=== PATIENT | female | born 1955 | race African-American/Black ===

== ENCOUNTER 2020-01-07 11:41 | Outpatient (REF) | payer BC, SELFPAY ==
[2020-01-07 13:35] LABS: Hematocrit 40.6 % (37-47); Hemoglobin 12.5 g/dl (12.0-16.0); Mean Corpuscular HGB Conc 30.8 g/dl (31.0-35.0); Mean Corpuscular Hemoglobin 27.5 pg (27.0-33.0); Mean Corpuscular Volume 89.4 fL (80-98); Mean Platelet Volume 9.3 fL (9.4-12.3); Platelet Count 322 X10*3/uL (160-400); Red Blood Count 4.54 X10*6/uL (4.20-5.50); Red Cell Distribution Width 13.4 % (11.0-16.0); White Blood Count 5.6 X10*3/uL (4.8-10.8)
[2020-01-07 13:51] LABS: Anion Gap 14 (12-20); Blood Urea Nitrogen 18 mg/dL (9-16); Calcium 8.8 mg/dL (8.4-10.2); Carbon Dioxide 21 mmol/L (22-29); Chloride 108 mmol/L (96-108); Estimated Glomerular Filt Rate > 60; Glucose Random 88 mg/dL (60-115); Potassium 4.5 mmol/l (3.3-5.1); Sodium 138 mmol/L (135-145)
== END 2020-01-07 11:42 | disposition home or self-care (01) ==
LOC: HO.LAB 11:41
PROVIDERS: PCP Physician Assistant; Visit Provider Physician Assistant
DX: Z01.818 Encounter for other preprocedural examination (principal); G50.0 Trigeminal neuralgia
CPT/HCPCS: 36415; 80048; 85027

== ENCOUNTER 2020-04-14 15:52 | Outpatient (REF) | payer OTHER, SELFPAY ==
--- NOTE | 2020-04-14 15:56 | XR_ITS ---
EXAMINATION: XR HUMERUS, LEFT CLINICAL INFORMATION: Pain COMPARISON: None TECHNIQUE: AP and lateral views of the left humerus. FINDINGS: The bones and soft tissues are normal. No fracture. Imaged portions of the shoulder and elbow are unremarkable. XR/XR humerus LT IMPRESSION: Normal left humerus.
== END 2020-04-14 15:53 | disposition home or self-care (01) ==
LOC: HO.XRAY 15:52
PROVIDERS: PCP Physician Assistant; Visit Provider Physician Assistant
DX: M79.622 Pain in left upper arm (principal)
CPT/HCPCS: 73060

== ENCOUNTER 2020-06-28 16:00 | Outpatient (RCR) | payer OTHER, SELFPAY ==
--- NOTE | 2020-05-17 20:07 | MHC.PT.EP ---
[facility] [place] Office [place] Office [place] Office [address] [phone] F: [phone] F: [phone] F: [phone] F: [phone] Physical Therapy Plan of Care Date of Evaluation: 05/17/20 Date of Surgery: Diagnosis: L shoulder tendonitis Assessment: Pt is a 64 y/o left hand dominant female referred to PT for L shoulder tendinopathy pain who presents with signs and sx consistent with L shoulder dysfunction resulting in decreased tolerance and ability to perform reaching a high shelf, dressing pullovers and braziers, reaching neck and back for hygiene/ dressing and carrying objects of weight secondary to decreased L UE strength and ROM, decreased posture, increased tissue tension and pain. Pt is deemed an appropriate candidate to receive skilled PT in order to address her physical limitations to improve her functional ability. Frequency and Duration: The patient will be seen 2 x / wk x 5 wks. Short Term Goals: in 1 week: initiate HEP In 3 weeks: Full L shoulder AROM achieved. Usp Goals: in 5 weeks: I with HEP. In 5 weeks: Pt will report no longer limited while dressing pullovers and under garments; initial: 10/10 difficulty. Treatment Plan: Modalities to reduce pain, spasms and effusion. Manual therapy to restore motion and function. Therapeutic exercise to improve strength and flexibility. Neuromuscular re-education for posture and balance. Therapeutic activities to return to functional activities of daily living. Electronically signed by: David Flores PT. Please sign and return to therapist. Thank you for your referral.
--- NOTE | 2020-12-09 10:33 | MHC.PT.DC ---
[facility] [place] Office [place] Office [place] Office [address] 140 [facility] [phone] F: [phone] F: [phone] F: [phone] F: [phone] Physical Therapy Discharge Report Diagnosis: L shoulder tendonitis Date of Surgery: Date of Evaluation: 05/17/20 Date of Discharge: 06/30/20 Treatments to Date: 5 Cancellations to Date: 0 No Shows to Date: 0 Discharge Status: Improved Function Independent with HEP Discharge Summary: Electronically signed by: David Flores PT. Please sign and return to therapist. Thank you for your referral.
== END 2020-12-09 10:33 | disposition home or self-care (01) ==
LOC: HO.PTCHIC 16:00
PROVIDERS: PCP Physician Assistant; Visit Provider Physician Assistant
DX: M77.8 Other enthesopathies, not elsewhere classified (principal); M25.512 Pain in left shoulder
CPT/HCPCS: 97110; 97161

== ENCOUNTER 2020-07-19 15:42 | Outpatient (REF) | payer OTHER, SELFPAY ==
--- NOTE | ~2020-07-19 | MM_ITS ---
EXAMINATION: MM SCREENING DIGITAL BREAST TOMOSYNTHESIS, BILATERAL CLINICAL INFORMATION: Screening. Asymptomatic. The lifetime risk of breast cancer based on the Tyrer-Cuzick Model is 6%. COMPARISON: Mammography: 04/15/2019, 04/09/2018, 02/09/2017 TECHNIQUE: Digital breast tomosynthesis is performed in both the craniocaudal and mediolateral oblique views along with computer-aided detection (CAD). Synthesized 2D images are generated from the tomosynthesis. FINDINGS: The breasts are heterogeneously dense, which may obscure small masses (ACR BI-RADS breast composition Category c). Parenchymal pattern borders on average fibroglandular. The glandular distribution is similar to prior studies. There is no developing density or interval mass or architectural abnormality. Low right axillary nodes are stable. There are scattered bilateral calcifications in the central breast again seen. The skin contours are smooth. No significant changes. MM/MM tomosynthesis screening BI IMPRESSION: No significant changes from prior exams. ASSESSMENT: BI-RADS 2: Benign RECOMMENDATION: Routine annual mammography screening. This patient's information was entered into a reminder system with a target due date for their next mammogram.
== END 2020-07-19 15:43 | disposition home or self-care (01) ==
LOC: HO.MAMMO 15:42
PROVIDERS: PCP Physician Assistant; Visit Provider Physician Assistant
DX: Z12.31 Encounter for screening mammogram for malignant neoplasm of breast (principal)
CPT/HCPCS: 77063; 77067

== ENCOUNTER 2020-12-15 07:13 | Outpatient (REF) | payer MEDICARE, MEDICAID, SELFPAY ==
[2020-12-15 08:37] LABS: MANUAL DIFF FLAG NO
[2020-12-15 08:45] LABS: Basophils Percent Auto 0.5 % (0-2); Eosinophils Absolute Auto 0.6 X10*3/uL (0.0-0.4); Eosinophils Percent Auto 8.6 % (0-4); Hematocrit 38.3 % (37-47); Hemoglobin 11.6 g/dl (12.0-16.0); Imm Gran Abs Auto 0.03 X10*3/uL (0.00-0.03); Imm Gran Pct Auto 0.5 % (0.0-0.4); Lymphocytes Absolute Auto 2.1 X10*3/uL (1.2-4.9); Lymphocytes Percent Auto 32.3 % (20-40); Mean Corpuscular HGB Conc 30.3 g/dl (31.0-35.0); Mean Corpuscular Hemoglobin 26.7 pg (27.0-33.0); Mean Corpuscular Volume 88.2 fL (80-98); Monocytes Absolute Auto 0.6 X10*3/uL (0.1-1.2); Monocytes Percent Auto 8.6 % (2-11); Neutrophils Absolute Auto 3.2 X10*3/uL (2.0-8.3); Neutrophils Percent Auto 49.5 % (45-73); Platelet Count 304 X10*3/uL (160-400); Red Blood Count 4.34 X10*6/uL (4.20-5.50); Red Cell Distribution Width 13.8 % (11.0-16.0); White Blood Count 6.5 X10*3/uL (4.8-10.8)
[2020-12-15 08:50] LABS: INTERNATIONAL NORM RATIO 0.9 (0.9-1.1); Prothrombin Time 10.3 SEC (9.9-13.0)
[2020-12-15 09:31] LABS: Alanine Aminotransferase 18 U/L (0-31); Albumin Level 4.1 g/dL (3.5-5.0); Alkaline Phosphatase 109 U/L (39-117); Anion Gap 10 (12-20); Aspartate Amino Transferase 26 U/L (5-31); Bilirubin Total 0.5 mg/dL (0.0-1.0); Blood Urea Nitrogen 10 mg/dL (9-16); Calcium 9.3 mg/dL (8.4-10.2); Carbon Dioxide 28 mmol/L (22-29); Chloride 107 mmol/L (96-108); Cholesterol 208 mg/dL; Estimated Glomerular Filt Rate > 60; Glucose Fasting 106 mg/dL (60-99); HDL Cholesterol 52 mg/dL; LDL Cholesterol Calculated 131 mg/dl; Potassium 4.2 mmol/L (3.3-5.1); Sodium 141 mmol/L (135-145); Total Protein 7.3 g/dL (6.5-8.0); Triglycerides 125 mg/dL
== END 2020-12-15 07:14 | disposition home or self-care (01) ==
LOC: HO.LAB 07:13
PROVIDERS: PCP Physician Assistant; Visit Provider Physician Assistant
DX: Z01.818 Encounter for other preprocedural examination (principal); Z13.220 Encounter for screening for lipoid disorders; Z13.29 Encounter for screening for other suspected endocrine disorder; G50.0 Trigeminal neuralgia
CPT/HCPCS: 36415; 80053; 80061; 84443; 85025; 85610

== ENCOUNTER 2021-01-03 11:26 | Outpatient (REF) | payer MEDICARE, MEDICAID, SELFPAY ==
--- NOTE | ~2021-01-03 | US_ITS ---
EXAMINATION: US EXTREMITY NON-VASCULAR CLINICAL INFORMATION: Lump of subcutaneous skin. ?lipoma versus cyst. COMPARISON: None TECHNIQUE: Limited ultrasound imaging of a palpable lump along the right posterior lateral flank was performed. FINDINGS: Imaging through the area of the palpable lump reveals no visible mass or cyst. There is what appears to be lumpy bumpy subcutaneous fatty tissue but no discrete lipoma. Similar findings are seen on the opposite side, left flank. US/US extremity nonvascular cifuentes IMPRESSION: No ultrasound visualized aeration of mass or cyst or other abnormality seen along the palpable area of right flank.
== END 2021-01-03 11:27 | disposition home or self-care (01) ==
LOC: HO.HMGCX 11:26
PROVIDERS: PCP Physician Assistant; Visit Provider Physician Assistant
DX: R22.2 Localized swelling, mass and lump, trunk (principal)
CPT/HCPCS: 76882

== ENCOUNTER 2021-08-15 10:27 | Outpatient (REF) | payer MEDICARE, MEDICAID, SELFPAY ==
--- NOTE | ~2021-08-15 | MM_ITS ---
EXAMINATION: BONE DENSITOMETRY CLINICAL INDICATION: Asymptomatic menopausal state. COMPARISON: None (current study represents initial baseline exam). TECHNIQUE: Using a [employer] DXA System (software version: 13.1) manufactured by [employer], dual-energy x-ray absorptiometry was performed of the lumbar spine and left hip. The images are of good technical quality. Summary results are attached. FINDINGS: AP SPINE L1-L4: BMD 0.956 g/cm2, Z-score -0.6, T-score -1.9, osteopenia. LEFT FEMUR, NECK: BMD 0.795 g/cm2, Z-score -0.4, T-score -1.7, osteopenia. LEFT FEMUR, TOTAL: BMD 0.870 g/cm2, Z-score -0.1, T-score -1.1, osteopenia. IDENTIFIED RISK FACTORS: Anticonvulsant, menopause. HISTORY OF FRACTURE: None listed. MEDICATIONS: Calcium supplements or multivitamin, vitamin D. MM/XR DEXA axial skeleton IMPRESSION: 1. DIAGNOSIS: Osteopenia based on the lowest T-score value of -1.9 in the lumbar spine applying World Health Organization criteria. 2. 10-YEAR FRACTURE RISK PREDICTION, FRAX: Major osteoporotic fracture (clinical spine, forearm, hip or shoulder) 5.6%. Hip fracture 0.7%. 3. Treatment Recommendations: NOF guidelines recommend consideration for treatment in postmenopausal women and men age 50 and older presenting with the following: -A hip or vertebral (clinical or morphometric) fracture. -T-score less than or equal to -2.5 at the femoral neck or spine after appropriate evaluation to exclude secondary causes. -Low bone mass at the hip or spine and a 10-year fracture probability by FRAX of greater than or equal to 3% for hip fracture or greater than or equal to 20% for major osteoporotic fracture based on the [place] adapted WHO algorithm. 4. Other Recommendations: All treatment decisions require clinical judgment and consideration of individual patient factors, including patient preferences, comorbidities, previous drug use, risk factors not captured in the FRAX model (e.g. frailty, falls, vitamin D deficiency, increased bone turnover, interval significant decline in bone density) and possible under or overestimation of fracture risk by FRAX. Additional medical evaluation for secondary cause of low bone mineral density may be appropriate. FUTURE SCAN RECOMMENDATION: People with diagnosed cases of osteoporosis or at high risk for fracture should have regular bone mineral density tests. For patients eligible for Medicare, routine testing is allowed once every 2 years. The testing frequency can be increased to one year for patients who have rapidly progressing disease, those who are receiving or discontinuing medical therapy to restore bone mass, or have additional risk factors.
--- NOTE | ~2021-08-15 | MM_ITS ---
EXAMINATION: MM SCREENING DIGITAL BREAST TOMOSYNTHESIS, BILATERAL CLINICAL INFORMATION: Screening. Asymptomatic. The lifetime risk of breast cancer based on the Tyrer-Cuzick Model is 5%. COMPARISON: Mammography: 07/19/2020, 04/15/2019, 04/09/2018 TECHNIQUE: Digital breast tomosynthesis is performed in both the craniocaudal and mediolateral oblique views along with computer-aided detection (CAD). Synthesized 2D images are generated from the tomosynthesis. FINDINGS: The breasts are heterogeneously dense, which may obscure small masses (ACR BI-RADS breast composition Category c). There are no significant masses, abnormal calcifications, or other abnormalities. Breast tissue composition borders on average fibroglandular. There is no developing density or interval mass or architectural abnormality. Again, scattered numerous bilateral punctate and scattered coarse and rim calcifications are again present. No interval suspicious calcifications. The axilla and skin contours are unremarkable. MM/MM tomosynthesis screening BI IMPRESSION: No mammographic evidence of malignancy. ASSESSMENT: BI-RADS 2: Benign RECOMMENDATION: Routine annual mammography screening. This patient's information was entered into a reminder system with a target due date for their next mammogram.
== END 2021-08-15 10:28 | disposition home or self-care (01) ==
LOC: HO.MAMMO 10:27
PROVIDERS: Visit Provider Physician Assistant
DX: Z12.31 Encounter for screening mammogram for malignant neoplasm of breast (principal); Z13.820 Encounter for screening for osteoporosis; Z78.0 Asymptomatic menopausal state; M85.80 Other specified disorders of bone density and structure, unspecified site
CPT/HCPCS: 77063; 77067; 77080

== ENCOUNTER 2021-08-24 07:25 | Outpatient (REF) | payer MEDICARE, SELFPAY ==
[2021-08-24 08:40] LABS: Hematocrit 37.7 % (37.0-47.0); Hemoglobin 11.4 g/dl (12.0-16.0); Mean Corpuscular HGB Conc 30.2 g/dl (31.0-35.0); Mean Corpuscular Hemoglobin 26.6 pg (27.0-33.0); Mean Corpuscular Volume 88.1 fL (80.0-98.0); Platelet Count 363 X10*3/uL (160-400); Red Blood Count 4.28 X10*6/uL (4.20-5.50); Red Cell Distribution Width 13.2 % (11.0-16.0); White Blood Count 6.6 X10*3/uL (4.8-10.8)
[2021-08-24 09:08] LABS: Alanine Aminotransferase 15 U/L (0-31); Albumin Level 3.9 g/dL (3.5-5.0); Alkaline Phosphatase 99 U/L (39-117); Anion Gap 13 (12-20); Aspartate Amino Transferase 19 U/L (5-31); Bilirubin Total 0.3 mg/dL (0.0-1.0); Blood Urea Nitrogen 19 mg/dL (9-16); Calcium 9.1 mg/dL (8.4-10.2); Carbon Dioxide 26 mmol/L (22-29); Chloride 106 mmol/L (96-108); Cholesterol 194 mg/dL; Estimated Glomerular Filt Rate > 60; Glucose Fasting 103 mg/dL (60-99); HDL Cholesterol 43 mg/dL; LDL Cholesterol Calculated 138 mg/dl; Potassium 4.7 mmol/L (3.3-5.1); Sodium 140 mmol/L (135-145); Total Protein 7.2 g/dL (6.5-8.0); Triglycerides 67 mg/dL
[2021-08-24 09:33] LABS: TSH reflex Free T4 3.72 uIU/mL (0.32-4.0)
== END 2021-08-24 07:26 | disposition home or self-care (01) ==
LOC: HO.LAB 07:25
PROVIDERS: PCP Physician Assistant; Visit Provider Physician Assistant
DX: F32.9 Major depressive disorder, single episode, unspecified (principal); Z13.220 Encounter for screening for lipoid disorders; Z13.29 Encounter for screening for other suspected endocrine disorder
CPT/HCPCS: 36415; 80053; 80061; 84443; 85027

== ENCOUNTER → 2021-11-21 12:52 | Outpatient (BNVA) | payer MEDICARE, SELFPAY | PROVIDERS: PCP Physician Assistant; Visit Provider Psychiatry & Neurology Neurology | DX: G50.0 Trigeminal neuralgia (principal); G47.10 Hypersomnia, unspecified; R06.83 Snoring; Z79.899 Other long term (current) drug therapy | CPT/HCPCS: 99202 ==

== ENCOUNTER → 2021-12-19 09:55 | Outpatient (REF) | payer MEDICARE, SELFPAY | LOC: HO.SL 09:55 | PROVIDERS: PCP Physician Assistant; Visit Provider Psychiatry & Neurology Neurology | DX: G47.10 Hypersomnia, unspecified (principal); R06.83 Snoring | CPT/HCPCS: 95806 ==

== ENCOUNTER → 2022-01-09 12:50 | Outpatient (BNVA) | payer MEDICARE, SELFPAY | PROVIDERS: PCP Physician Assistant; Visit Provider Nurse Practitioner Family | DX: G50.0 Trigeminal neuralgia (principal) | CPT/HCPCS: 99212 ==

== ENCOUNTER 2022-01-30 10:25 | Outpatient (REF) | payer MEDICARE, SELFPAY ==
--- NOTE | ~2022-01-30 | MR_ITS ---
EXAMINATION: MR BRAIN WITHOUT AND WITH CONTRAST CLINICAL INFORMATION: 66-year-old with self-reported left jaw pain. Trigeminal neuralgia. COMPARISON: 04/24/2019 MRI. TECHNIQUE: Multiplanar, multisequence MRI of the brain/extracranial head-neck was obtained before and after the intravenous administration of 7.5 mL Gadavist. FINDINGS: DWI sequence demonstrates no restricted diffusion to suggest acute or subacute cerebral ischemia. Redemonstrated are [id number] degrees of patchy zones of FLAIR/T2 signal hyperintensity in the subcortical and deeper white matter of both cerebral hemispheres, a few of which appear more conspicuous on the current study suggesting minimal progression associated with confluent periventricular T2 hyperintensity stable in appearance consistent with chronic ischemic microangiopathy involving the centrum semiovale and noel radiata white matter bilaterally, frontal and parietal white matter bilaterally. Tiny zone of T2 hyperintensity in the right ayse noted on current study also likely of chronic ischemic origin. No extra-axial fluid collections and no pathologic intracranial enhancement or mass lesion. The cisternal and cavernous portions of the trigeminal nerves are visualized bilaterally and are unchanged in appearance from the previous study. No abnormal enhancement or mass lesion seen along the course bilaterally with a normal appearance to Meckel's caves. The foramina ovale appear normal bilaterally with a normal appearance to the trigeminal fat pads, cavernous sinuses, orbital apices and inferior orbital fissures. The visualized mandible is intact. The inferior alveolar canals appear symmetric with a normal appearance to the shelf stocker spaces. There is mucosal thickening in the maxillary sinuses bilaterally progressed from previous study, right more than left, and retained secretions in the right maxillary sinus with some mucosal thickening in the ethmoid complex bilaterally, similar to previous exam. There is mucosal thickening in the sphenoid sinus, similar to previous study. Bilateral lens extractions are noted. Otherwise, the globes and remainder of both orbits appear grossly within normal limits. The infraorbital grooves appear unremarkable bilaterally. The premaxillary soft tissues are within normal limits. MR/MR head/brain wo/w con IMPRESSION: 1. Chronic ischemic microangiopathy in the white matter of both cerebral hemispheres minimally progressed from the previous exam with new minimal chronic ischemic microangiopathy in the right ayse. No intracranial mass lesions or pathologic intracranial enhancement. 2. No specific findings to correlate to clinically reported trigeminal neuralgia. No evidence for vascular impingement, mass lesions or abnormal enhancement corresponding to the course of the visualized trigeminal nerves. 3. Pansinus mucosal inflammatory changes again noted.
== END 2022-01-30 10:26 | disposition home or self-care (01) ==
LOC: HO.MRI 10:25
PROVIDERS: Visit Provider Nurse Practitioner Family
DX: G50.0 Trigeminal neuralgia (principal)
CPT/HCPCS: 70553; A9585

== ENCOUNTER → 2022-02-27 15:19 | Outpatient (BNVA) | payer MEDICARE, SELFPAY | PROVIDERS: PCP Physician Assistant; Visit Provider Nurse Practitioner Family | DX: G50.0 Trigeminal neuralgia (principal) | CPT/HCPCS: 99212 ==

== ENCOUNTER 2022-03-16 15:08 | Outpatient (REF) | payer MEDICARE, MEDICAID, SELFPAY ==
--- NOTE | ~2022-03-16 | MR_ITS ---
EXAMINATION: MR ANGIOGRAPHY BRAIN WITHOUT CONTRAST CLINICAL INFORMATION: Trigeminal neuralgia. COMPARISON: Brain MRI from 01/30/2022. TECHNIQUE: 3-D [id number] MR angiography of the platinum of [place] acquired. FINDINGS: The nondominant left vertebral artery terminates in the PICA branch. The right vertebral artery is normal in caliber. The basilar artery is normal in appearance. The posterior cerebral arteries are widely patent. The internal carotid arteries are normal in caliber. The IRVIN vascular complexes are normal. The middle cerebral arteries are widely patent. No vascular malformation or aneurysm identified. There is moderate right maxillary sinus mucosal thickening with a dependent fluid level. Worsened kfgymkxy-fr-rftyxk left sphenoid sinus mucosal disease evident with a fluid level compared to the prior study. Fluid level and moderate mucosal thickening also newly seen in the right sphenoid sinus. MR/MR angio head wo con IMPRESSION: Normal MRA of the head. Worsened sphenoid sinus mucosal disease with fluid levels. Moderate right maxillary sinus mucosal thickening with a small dependent fluid level as well.
== END 2022-03-16 15:09 | disposition home or self-care (01) ==
LOC: HO.MRI 15:08
PROVIDERS: Visit Provider Nurse Practitioner Family
DX: G50.0 Trigeminal neuralgia (principal)
CPT/HCPCS: 70544

== ENCOUNTER 2022-11-01 09:20 | Outpatient (AMB) | payer MEDICARE, SELFPAY ==
--- NOTE | 2022-11-01 09:27 | MHC.OFFVIS ---
Intake Vital Signs 11/01/22 09:34 Weight 158 lb 2 oz BP 120/80 Blood Pressure Location Lt brachial Position Sitting Pulse 71 Pulse Source Pulse Oximeter Pulse Oximetry (%) 98 Oxygen Delivery Method Room Air Intake Visit Reasons: 3 month f/u - Confirmed through CW Intake Note: Follow up Premium Service Representative Required: No Allergies carbamazepine Allergy (Severe, Verified 11/01/22 09:30) Itchyness, rash all over body oxcarbazepine Allergy (Severe, Verified 11/01/22 09:30) Hives Iodinated Contrast Media [IODINATED CONTRAST MEDIA - IV DYE] Allergy (Intermediate, Verified 11/01/22 09:30) RASH, LIPS SWELLING peach [PEACH] Allergy (Mild, Verified 11/01/22 09:30) RASH.ITCHY pear [PEAR] Allergy (Mild, Verified 11/01/22 09:30) RASH, ITCHY strawberry [STRAWBERRY] Allergy (Mild, Verified 11/01/22 09:30) RASH, ITCHY Egg Derived [EGG DERIVED] Allergy (Unknown, Verified 11/01/22 09:30) UNKNOWN HPI HPI Comments History of Present Illness Details 66 y/o female patient presents for follow up of trigeminal neuralgia. Pt reports that the trigeminal neuralgia is better managed with Lyrica 75 mg BID. She stopped taking baclofen. She tired lamictal but stopped due to dizziness and weakness. Pt also tried carbamazepine and she had allergies, cymbalta- but eye pressure increased ( h/o glaucoma). She still has left side facial, jaw pain when she eats and brushes her teeth, but less frequently. Pt reports that she tries to eat healthy and start drink a tea to manage her sinus problem. She noticed that sinus congestion aggravate her left facial pain, too. MRA of head result was normal with worsened sphenoid sinus mucosal disease with fluid levels. Moderate right maxillary sinus mucosal thickening with a small dependent fluid level as well. [facility] Surgical History History of tonsillectomy Family History Father Cancer Multiple sclerosis Mother Cancer Leukemia Sister Multiple sclerosis Social History (Updated 11/01/22 @ 09:34 by Bri Estrada [facility]) Housing: House Alcohol intake: never Patient Tobacco Use Status: Never used Tobacco e-Cigarette/Vaping Use: Never Used Second Hand Smoke Exposure: No service: No Current occupational status: retired Cognitive needs: No Hearing needs: No Vision needs: Yes (glasses) Review of Systems Const All systems reviewed & are unremarkable except as noted in HPI and below ENT Reports Normal hearing present Neuro Reports Normal hearing present Physical Exam Vital Signs: Last Vital Signs Pulse 71 11/01/22 09:34 BP 120/80 11/01/22 09:34 Pulse Ox 98 11/01/22 09:34 Oxygen Delivery Method Room Air 11/01/22 09:34 Const General: cooperative Nutritional Appearance: average body habitus Orientation/consciousness: patient oriented x3 Neck Neck: Yes full ROM and Yes supple Resp Effort & Inspection: normal respiratory effort and able to speak in complete sentences Neuro General: patient oriented x3 and gait normal Cranial nerves: Yes Bilaterally intact EOM present, Yes Normal facial strength present, Yes Midline tongue present, Yes Normal hearing present, Yes Ability to bilaterally rotate head present and Yes Ability to bilaterally elevate shoulders present Cognition (Neuro): normal cognition Gait exam (Neuro): Normal gait present Assessment & Plan Assessment & Plan (1) Trigeminal neuralgia: Code(s): G50.0 - Trigeminal neuralgia Plan Advised patient to continue to take Lyrica 75mg BID. Advised patient to try NetiPot to clear her sinus. Patient with 3 year history of left sided trigeminal neuralgia. She has trialed gabapentin, pregabalin, Oxcarbazepine , carbamazepine, lamictal and Laser treatment through chiropractic. Medications: Refilled pregabalin (Lyrica) 75 mg PO BID 90 days 180 caps 0RF Coding Level of Care Code New Pt Level 3 (31012) Diagnoses Trigeminal neuralgia G50.0
[2022-11-01 09:34] VITALS: BP 120/80; PULSE 71; O2SAT 98
== END 2022-11-01 09:58 | disposition home or self-care (01) ==
PROVIDERS: Visit Provider Nurse Practitioner Family
DX: G50.0 Trigeminal neuralgia (principal)
CPT/HCPCS: 99213

== ENCOUNTER → 2022-11-01 09:20 | Outpatient (BNVA) | payer MEDICARE, SELFPAY | PROVIDERS: Visit Provider Nurse Practitioner Family ==

== ENCOUNTER 2022-11-05 11:06 | Outpatient (AMB) | payer MEDICARE, SELFPAY ==
--- NOTE | 2022-11-05 11:09 | MHC.PC.OV ---
Vital Signs 11/05/22 11:11 Height 5 ft 6 in Weight 158 lb BMI 25.5 BP 138/70 Blood Pressure Location Rt brachial Position Sitting Pulse 83 Pulse Source Pulse Oximeter Pulse Oximetry (%) 99 Intake Visit Reasons: f/u impaired glucose metabolism Intake Note: pt is here for f/u for IGM Sex Crimes Detective Required: No Accompanied by: Self / Same As Patient Allergies carbamazepine Allergy (Severe, Verified 11/05/22 11:39) Itchyness, rash all over body oxcarbazepine Allergy (Severe, Verified 11/05/22 11:39) Hives Iodinated Contrast Media [IODINATED CONTRAST MEDIA - IV DYE] Allergy (Intermediate, Verified 11/05/22 11:39) RASH, LIPS SWELLING peach [PEACH] Allergy (Mild, Verified 11/05/22 11:39) RASH.ITCHY pear [PEAR] Allergy (Mild, Verified 11/05/22 11:39) RASH, ITCHY strawberry [STRAWBERRY] Allergy (Mild, Verified 11/05/22 11:39) RASH, ITCHY Egg Derived [EGG DERIVED] Allergy (Unknown, Verified 11/05/22 11:39) UNKNOWN Medication List - Last Reconciled 11/05/22 by Ray Mak PA-C albuterol sulfate 90 mcg/actuation (ProAir HFA) 2 puffs inhalation Q4-6H PRN 30 days calcium carbonate-vitamin D3 500 mg-10 mcg (400 unit) (Oyster Shell Calcium-Vitamin D3) 1 tab PO BID 90 days dorzolamide-timolol (PF) 2-0.5 % 1 drp ophthalmic (eye) BID esomeprazole magnesium (Nexium) 40 mg PO DAILY fluticasone propionate 50 mcg/actuation 1 spray intranasal DAILY 30 days latanoprost 0.005% 1 drp ophthalmic (eye) DAILY pregabalin (Lyrica) 75 mg PO BID 90 days pyridoxine (vitamin B6) 50 mg PO DAILY 30 days Tobacco use date assessed: 07/25/22 Fall risk assessment: No Falls in past year Last assessed Fall Risk: 11/05/22 Dental Screening Dental Screen Date: 11/05/22 Did you have a dental visit in the last 12 months?: Yes Did you have a dental problem in the last 6 months where you did not have access to dental care?: No Was dental information given to patient?: Patient has dentist HPI f/u impaired glucose metabolism HPI Details atient is a 66-year-old female here today for follow-up visit.? Patient has a past history significant for major depressive disorder, trigeminal neuralgia. Trigeminal neuralgia : Interval history-->? Has discontinued use of gabapentin.?Has trialed Oxycarbamazapine. .? She does have GI side effects from time to time from gabapentin use. Has seen [facility] neurologist for 2nd opinion on her trigeminal neuralgia. Has followed up with local neurologist and has gotten had MRA and MRI with chronic ischemic changes.? Now continues on Lyrica 75 mg with decent relief of her trigeminal neuralgia pain. .. Osteopenia:? Most recently had a bone density screening showing osteopenia with.? She has started calcium supplementation though needs vitamin-D as well.?? . Pre diabetes:? Most recent FBS - 103 ,? tension neurology pain.? She did get labs with a independent doctor reports that A1c is 6.4. PLAN:? Did discuss starting medication though patient declines, will work extensively on lifestyle modifications to reduce her carbohydrates in her diet. Laboratory Tests 08/24/21 07:51 Fasting Glucose 103 H [facility] Surgical History History of tonsillectomy Family History Father Cancer Multiple sclerosis Mother Cancer Leukemia Sister Multiple sclerosis Social History Housing: House Alcohol intake: never Patient Tobacco Use Status: Never used Tobacco e-Cigarette/Vaping Use: Never Used Second Hand Smoke Exposure: No service: No Current occupational status: retired Cognitive needs: No Hearing needs: No Vision needs: Yes (glasses) Questionnaire Thrive Questionnaire Date Thrive assessed: 07/25/22 ONI-7 AMB Questionnaire ONI-7 Date ONI - 7 assessed: 07/25/22 Source: Developed by Drs. Tomasz Ortega, Nerissa Navarro, Artemio Rosas and colleagues, with an educational magdiel from [employer]. Review of Systems Const Denies headache(s) Eyes Denies loss of vision ENT Denies vertigo, Denies dizziness, Denies headache(s) and Denies sore throat Card Denies chest pain, Denies leg edema and Denies lightheadedness Resp Denies cough, Denies hemoptysis and Denies wheezing GI Denies abdominal pain, Denies melena, Denies constipation, Denies diarrhea and Denies vomiting Denies urinary frequency, Denies dysuria and Denies urinary urgency Musc Denies arthralgias, Denies joint swelling, Denies numbness and Denies tingling Neuro Denies Abnormal speech present, Denies behavioral changes, Denies vertigo, Denies dizziness, Denies headache(s), Denies loss of vision, Denies memory loss, Denies numbness and Denies tingling Psych Denies anxiety, Denies behavioral changes, Denies depression, Denies memory loss and Denies panic attacks Yadiel/Lymph Denies easy bleeding and Denies easy bruising Aller/Immun Denies wheezing Physical exam (Primary Care) Vital Signs: Last Vital Signs Pulse 83 11/05/22 11:11 BP 138/70 11/05/22 11:11 Pulse Ox 99 11/05/22 11:11 BMI result Body Mass Index 25.5 Tobacco/Smoking Status: Tobacco use Status Tobacco use date assessed 07/25/22 11/05/22 11:10 Patient Tobacco Use Status Never used Tobacco 11/05/22 11:10 e-Cigarette/Vaping Use Never Used 11/05/22 11:10 Thrive Assessment: Date of Thrive Assessment Date Thrive assessed 07/25/22 11/05/22 11:10 Const General: healthy appearing, no acute distress, alert and awake Nutritional Appearance: well nourished Orientation/consciousness: oriented to person, oriented to place and oriented to time [facility] Ears: TM's normal bilaterally General nose exam: Normal nasal mucous membranes and turbinates present Eyes Conjunctivae: conjunctivae normal Sclerae: sclerae normal Pupils: Equal, round and reactive pupils present Neck Neck: Yes no lymphadenopathy and Yes no JVD Thyroid: Thyroid normal Carotids: no bruits Resp Effort & Inspection: normal respiratory effort and not tachypneic Auscultation: no crackles, no rales, no rhonchi and no wheezes Cardio Rate: regular rate Rhythm: regular rhythm Heart sounds: no murmurs and normal S1 and S2 GI Palpation (GI): Soft to palpation, nontender, no hepatomegaly and no splenomegaly Auscultation: normal bowel sounds Skin General skin exam: no rashes or lesions noted and dry skin Neuro General: oriented to person, oriented to place and oriented to time Cranial nerves: Yes Equal, round and reactive pupils present Speech: No Abnormal speech present Gait exam (Neuro): Normal gait present Motor exam (neuro): no tremor noted Extrem Right upper extremity: full ROM Left upper extremity: full ROM Right lower extremity: full ROM; no edema Left lower extremity: full ROM; no edema Psych Mental Status: mental status grossly normal Speech and movement: Normal speech and movement present Affect: normal affect Attitude: cooperative Thought process: Normal thought process present Assessment and Plan Assessment & Plan (1) Borderline high cholesterol: Code(s): E78.9 - Disorder of lipoprotein metabolism, unspecified Plan: Patient continues to work on lifestyle modifications to control her borderline high cholesterol. (2) Impaired fasting glucose: Code(s): R73.01 - Impaired fasting glucose Plan: Patient's most recent fasting blood sugar slightly elevated, most recent A1c is 6.4. Has lost 10 lb since last office visit and will recheck fasting sugar and A1c to assure A1c has improved. (3) Trigeminal neuralgia: Code(s): G50.0 - Trigeminal neuralgia Plan: Now stable on current doses Lyrica, still has pain though is manageable. Coding Level of Care Code Est Pt Level 3 (90302) Diagnoses Borderline high cholesterol E78.9 Impaired fasting glucose R73.01 Trigeminal neuralgia G50.0
[2022-11-05 11:11] VITALS: BP 138/70; PULSE 83; O2SAT 99; BMI 25.5
== END 2022-11-05 11:52 | disposition home or self-care (01) ==
PROVIDERS: PCP Physician Assistant; Visit Provider Physician Assistant
DX: E78.9 Disorder of lipoprotein metabolism, unspecified (principal); R73.01 Impaired fasting glucose; G50.0 Trigeminal neuralgia
CPT/HCPCS: 99213

== ENCOUNTER 2022-11-05 11:11 | Outpatient (REF) | payer MEDICARE, SELFPAY | END 2022-11-05 11:12 | disposition home or self-care (01) | LOC: HO.LAB 11:11 | PROVIDERS: Visit Provider Physician Assistant | DX: Z13.89 Encounter for screening for other disorder (principal) ==

== ENCOUNTER 2022-11-05 13:08 | Outpatient (REF) | payer MEDICARE, SELFPAY ==
--- NOTE | ~2022-11-05 | MM_ITS ---
EXAMINATION: MM SCREENING DIGITAL BREAST TOMOSYNTHESIS, BILATERAL CLINICAL INFORMATION: Screening. Asymptomatic. The lifetime risk of breast cancer based on the Tyrer-Cuzick Model is 3.7%. COMPARISON: Mammography: 08/15/2021, 07/19/2020, and dating back to 2013. TECHNIQUE: Digital breast tomosynthesis is performed in both the craniocaudal and mediolateral oblique views along with computer-aided detection (CAD). Synthesized 2D images are generated from the tomosynthesis. FINDINGS: There are scattered areas of fibroglandular density (ACR BI-RADS breast composition Category b). There are stable benign round calcifications scattered throughout both breasts. No suspicious or aggressive changes. There are round equal density circumscribed masses in both breasts, which have been waxing and waning over time, most consistent with simple cysts. There are no suspicious masses, suspicious grouped calcifications, or areas of architectural distortion. The parenchymal pattern is otherwise stable from prior exams. MM/MM tomosynthesis screening BI IMPRESSION: No mammographic evidence of malignancy. Pattern of waxing and waning small simple cysts. Benign calcifications both breasts. ASSESSMENT: BI-RADS BI-RADS 2 - Benign Findings RECOMMENDATION: Routine annual mammography screening. 1 year F/U This examination should not preclude the clinical evaluation of a suspicious palpable abnormality. This patient's information was entered into a reminder system with a target due date for their next mammogram.
== END 2022-11-05 13:09 | disposition home or self-care (01) ==
LOC: HO.MAMMO 13:08
PROVIDERS: PCP Physician Assistant; Visit Provider Physician Assistant
DX: Z12.31 Encounter for screening mammogram for malignant neoplasm of breast (principal)
CPT/HCPCS: 77063; 77067

== ENCOUNTER → 2022-11-05 13:15 | Outpatient (BNV) | payer MEDICARE, SELFPAY | PROVIDERS: PCP Physician Assistant; Visit Provider Radiology Diagnostic Radiology | DX: Z12.31 Encounter for screening mammogram for malignant neoplasm of breast (principal) | CPT/HCPCS: 77063; 77067 ==

== ENCOUNTER 2022-11-07 07:13 | Outpatient (REF) | payer MEDICARE, SELFPAY ==
[2022-11-07 09:41] LABS: Hematocrit 39.1 % (37.0-47.0); Mean Corpuscular HGB Conc 30.7 g/dl (31.0-35.0); Mean Corpuscular Hemoglobin 27.1 pg (27.0-33.0); Mean Corpuscular Volume 88.3 fL (80.0-98.0); Mean Platelet Volume 10.2 fL (9.4-12.3); Platelet Count 302 X10*3/uL (160-400); Red Blood Count 4.43 X10*6/uL (4.20-5.50); Red Cell Distribution Width 13.7 % (11.0-16.0); White Blood Count 6.4 X10*3/uL (4.8-10.8)
[2022-11-07 09:55] LABS: Estimated Average Glucose 126 mg/dL
[2022-11-07 10:37] LABS: Alanine Aminotransferase 14 U/L (0-31); Albumin Level 3.9 g/dL (3.5-5.0); Alkaline Phosphatase 88 U/L (39-117); Anion Gap 12 (12-20); Aspartate Amino Transferase 18 U/L (5-31); Bilirubin Total 0.3 mg/dL (0.0-1.0); Blood Urea Nitrogen 16 mg/dL (9-16); Calcium 9.4 mg/dL (8.4-10.2); Carbon Dioxide 26 mmol/L (22-29); Chloride 109 mmol/L (96-108); Cholesterol 157 mg/dL; Estimated Glomerular Filt Rate > 60; Glucose Fasting 93 mg/dL (60-99); HDL Cholesterol 47 mg/dL; LDL Cholesterol Calculated 90 mg/dl; Sodium 143 mmol/L (135-145); Total Protein 7.2 g/dL (6.5-8.0); Triglycerides 100 mg/dL
== END 2022-11-07 07:14 | disposition home or self-care (01) ==
LOC: HO.LAB 07:13
PROVIDERS: PCP Physician Assistant; Visit Provider Physician Assistant
DX: R73.01 Impaired fasting glucose (principal); J45.20 Mild intermittent asthma, uncomplicated; E78.9 Disorder of lipoprotein metabolism, unspecified
CPT/HCPCS: 36415; 80053; 80061; 83036; 85027

== ENCOUNTER 2023-04-08 12:53 | Outpatient (AMB) | payer MEDICARE, SELFPAY ==
--- NOTE | 2023-04-08 12:58 | MHC.PC.OV ---
Vital Signs 04/08/23 12:59 Height 5 ft 6 in Weight 156 lb 6 oz BMI 25.2 BP 100/60 Blood Pressure Location Lt brachial Position Sitting Pulse 44 L Pulse Source Pulse Oximeter Pulse Oximetry (%) 99 Oxygen Delivery Method Room Air Intake Visit Reasons: neck pain Intake Note: Patient is here today for neck pain radiates down both arms. Tried Tylenol with no relieve. Payroll Assistant Required: No General Maintenance Engineer: Not Required per policy Accompanied by: Self / Same As Patient Allergies carbamazepine Allergy (Severe, Verified 04/08/23 13:25) Itchyness, rash all over body oxcarbazepine Allergy (Severe, Verified 04/08/23 13:25) Hives Iodinated Contrast Media [IODINATED CONTRAST MEDIA - IV DYE] Allergy (Intermediate, Verified 04/08/23 13:25) RASH, LIPS SWELLING peach [PEACH] Allergy (Mild, Verified 04/08/23 13:25) RASH.ITCHY pear [PEAR] Allergy (Mild, Verified 04/08/23 13:25) RASH, ITCHY strawberry [STRAWBERRY] Allergy (Mild, Verified 04/08/23 13:25) RASH, ITCHY Egg Derived [EGG DERIVED] Allergy (Unknown, Verified 04/08/23 13:25) UNKNOWN Medication List - Last Reconciled 04/08/23 by Gamal Lerner MD albuterol sulfate 90 mcg/actuation (ProAir HFA) 2 puffs inhalation Q4-6H PRN 30 days calcium carbonate-vitamin D3 500 mg-10 mcg (400 unit) (Oyster Shell Calcium-Vitamin D3) 1 tab PO BID 90 days cyclobenzaprine 10 mg PO BEDTIME dorzolamide-timolol (PF) 2-0.5 % 1 drp ophthalmic (eye) BID esomeprazole magnesium (Nexium) 40 mg PO DAILY fluticasone propionate 50 mcg/actuation 1 spray intranasal DAILY 30 days latanoprost 0.005% 1 drp ophthalmic (eye) DAILY meloxicam 15 mg PO DAILY pregabalin (Lyrica) 75 mg PO BID 90 days pyridoxine (vitamin B6) 50 mg PO DAILY 30 days Tobacco use date assessed: 04/08/23 Fall risk assessment: No Falls in past year Last assessed Fall Risk: 04/08/23 Dental Screening Dental Screen Date: 04/08/23 Did you have a dental visit in the last 12 months?: Yes Did you have a dental problem in the last 6 months where you did not have access to dental care?: No Was dental information given to patient?: Patient has dentist HPI neck pain HPI Details 67-year-old female presents to the office for a sick visit. Patient is reporting neck pain and pressure symptoms for the past month. Does not recall any fall or injury. Pain is present around the neck and radiates into both arms. Pain symptoms are present throughout the day. [facility] Surgical History History of tonsillectomy Family History Father Cancer Multiple sclerosis Mother Cancer Leukemia Sister Multiple sclerosis Social History Housing: House Alcohol intake: never Patient Tobacco Use Status: Never used Tobacco e-Cigarette/Vaping Use: Never Used Second Hand Smoke Exposure: No service: No Current occupational status: retired Cognitive needs: No Hearing needs: No Vision needs: Yes (glasses) Questionnaire PHQ-9 Over the last 2 weeks, how often have you been bothered by any of the following problems? 1. Little interest or pleasure in doing things: not at all 2. Feeling down, depressed, or hopeless: not at all 3. Trouble falling or staying asleep, or sleeping too much: not at all 4. Feeling tired or having little energy: not at all 5. Poor appetite or overeating: not at all 6. Feeling bad about yourself - or that you are a failure or have let yourself or your family down: not at all 7. Trouble concentrating on things, such as reading the newspaper or watching television: not at all 8. Moving or speaking so slowly that other people could have noticed. Or the opposite - being so fidgety or restless that you have been moving around a lot more than usual: not at all 9. Thoughts that you would be better off or of hurting yourself in some way: not at all Total score: 0 Source: Developed by Drs. Tomasz Ortega, Nerissa Navarro, Artemio Rosas and colleagues, with an educational magdiel from [employer]. Thrive Questionnaire Date Thrive assessed: 04/08/23 I am a: Patient What is your living situation today?: I have a steady place to live Within the past 12 months, did the food you bought not last and you didn't have the money to get more?: Never true Within the past 12 months, did you worry whether your food would run out before you got money to buy more?: Never true Do you have trouble paying for medicines?: No Do you have trouble getting transportation to medical appointments?: No Do you have trouble paying your heating and electricity bill?: No Do you have trouble taking care of your child, family member or friend?: No Do you have trouble with day-to-day activities such as bathing, preparing meals, shopping, managing finances, etc.?: No Are you currently unemployed and looking for a job?: No Are you interested in more education?: No Currently or been in a relationship where the following occur: no concerns reported AUDIT C Alcohol Use Questionnaire (AUDIT-C) 1. How often do you have a drink containing alcohol?: Never Total Score: 0 ONI-7 AMB Questionnaire ONI-7 Date ONI - 7 assessed: 04/08/23 Feeling nervous, anxious, or on edge: 1 = Several days Not being able to stop or control worryin = Not at all Worrying too much about different things: 0 = Not at all Trouble relaxin = Several days Being so restless that it is hard to sit still: 1 = Several days Becoming easily annoyed or irritable: 0 = Not at all Feeling afraid as if something awful might happen: 0 = Not at all Total ONI-7 score (0-4 normal; 5-9 mild; 10-14 moderate; 15-21 severe): 3 Source: Developed by Drs. Tomasz Ortega, Nerissa Navarro, Artemio Rosas and colleagues, with an educational magdiel from [employer]. Physical exam (Primary Care) BMI result Body Mass Index 25.2 Tobacco/Smoking Status: Tobacco use Status Tobacco use date assessed 07/25/22 11/05/22 11:10 Patient Tobacco Use Status Never used Tobacco 11/05/22 11:10 e-Cigarette/Vaping Use Never Used 11/05/22 11:10 Thrive Assessment: Date of Thrive Assessment Date Thrive assessed 07/25/22 11/05/22 11:10 Currently or been in a relationship where the following occur: no concerns reported Const General: cooperative and healthy appearing Nutritional Appearance: well nourished Orientation/consciousness: patient oriented x3 Limitations: no limitations HENMT Head: Yes normal to inspection Eyes General: appearance normal, both eyes and all related structures Neck Other: Neck: Bilateral trapezius muscle discomfort. Full range of motion of the head. Neck: Yes normal visual inspection Chest Chest palpation & inspection: normal palpation of entire chest wall Resp Effort & Inspection: normal respiratory effort Neuro General: patient oriented x3 Assessment and Plan Assessment & Plan (1) Neck pain: Code(s): M54.2 - Cervicalgia Plan: Anti-inflammatory, muscle relaxant, physical therapy have been ordered. Patient was advised to use a heating pad. If symptoms do not improve to follow-up here. Orders: Orders PT Evaluation and Treatment Today M54.2 - Cervicalgia Medications: New cyclobenzaprine 10 mg PO BEDTIME 14 tabs 0RF meloxicam 15 mg PO DAILY 14 tabs 0RF Refilled pyridoxine (vitamin B6) 50 mg PO DAILY 30 days 30 tabs 3RF G50.0 - Trigeminal neuralgia calcium carbonate-vitamin D3 500 mg-10 mcg (400 unit) (Oyster Shell Calcium-Vitamin D3) 1 tab PO BID 90 days 180 tabs 1RF M85.80 - Other specified disorders of bone density and structure, unspecified site Coding Level of Care Code Est Pt Level 3 (16634) Diagnoses Neck pain M54.2
[2023-04-08 12:59] VITALS: BP 100/60; PULSE 44; O2SAT 99; BMI 25.2
== END 2023-04-08 13:17 | disposition home or self-care (01) ==
PROVIDERS: PCP Physician Assistant; Visit Provider Internal Medicine
DX: M54.2 Cervicalgia (principal)
CPT/HCPCS: 99213

== ENCOUNTER 2023-06-26 09:09 | Outpatient (AMB) | payer MEDICARE, SELFPAY ==
[2023-06-26 09:12] VITALS: BP 114/64; PULSE 78; O2SAT 98; BMI 24.5
--- NOTE | 2023-06-26 09:12 | MHC.PC.OV ---
Vital Signs 06/26/23 09:12 Height 5 ft 6 in Weight 152 lb BMI 24.5 BP 114/64 Blood Pressure Location Lt brachial Position Sitting Pulse 78 Pulse Source Pulse Oximeter Pulse Oximetry (%) 98 Oxygen Delivery Method Room Air Intake Visit Reasons: Weak/Tired Development Disability Specialist Required: No Accompanied by: Self / Same As Patient Allergies carbamazepine Allergy (Severe, Verified 06/26/23 09:22) Itchyness, rash all over body oxcarbazepine Allergy (Severe, Verified 06/26/23 09:22) Hives Iodinated Contrast Media [IODINATED CONTRAST MEDIA - IV DYE] Allergy (Intermediate, Verified 06/26/23 09:22) RASH, LIPS SWELLING peach [PEACH] Allergy (Mild, Verified 06/26/23 09:22) RASH.ITCHY pear [PEAR] Allergy (Mild, Verified 06/26/23 09:22) RASH, ITCHY strawberry [STRAWBERRY] Allergy (Mild, Verified 06/26/23 09:22) RASH, ITCHY Egg Derived [EGG DERIVED] Allergy (Unknown, Verified 06/26/23 09:22) UNKNOWN Medication List - Last Reconciled 06/26/23 by Ray Mak PA-C albuterol sulfate 90 mcg/actuation (ProAir HFA) 2 puffs inhalation Q4-6H PRN 30 days calcium carbonate-vitamin D3 500 mg-10 mcg (400 unit) (Oyster Shell Calcium-Vitamin D3) 1 tab PO BID 90 days dorzolamide-timolol (PF) 2-0.5 % 1 drp ophthalmic (eye) BID esomeprazole magnesium (Nexium) 40 mg PO DAILY fluticasone propionate 50 mcg/actuation 1 spray intranasal DAILY 30 days latanoprost 0.005% 1 drp ophthalmic (eye) DAILY netarsudil 0.02% 1 drp ophthalmic-Left QPM pregabalin (Lyrica) 75 mg PO BID 90 days pyridoxine (vitamin B6) 50 mg PO DAILY Tobacco use date assessed: 04/08/23 HPI Weak/Tired HPI Details Patient is a 67-year-old female here today for problem visit. She reports she has been feeling tiered , weak, sleeping issues over the last 3 -4 months. She reports having somewhat of a lack of appetite and has lost a small amount of weight over the last 6-8 months. She has been intentionally reducing her sugar and portion sizes as well which may have caused her some weight loss. Otherwise denies any chest pain, shortness breast, palpitations, vomiting or diarrhea. [facility] Surgical History History of tonsillectomy Family History Father Cancer Multiple sclerosis Mother Cancer Leukemia Sister Multiple sclerosis Social History Housing: House Alcohol intake: never Patient Tobacco Use Status: Never used Tobacco e-Cigarette/Vaping Use: Never Used Second Hand Smoke Exposure: No service: No Current occupational status: retired Cognitive needs: No Hearing needs: No Vision needs: Yes (glasses) Questionnaire PHQ-9 Over the last 2 weeks, how often have you been bothered by any of the following problems? 1. Little interest or pleasure in doing things: not at all 2. Feeling down, depressed, or hopeless: not at all 3. Trouble falling or staying asleep, or sleeping too much: not at all 4. Feeling tired or having little energy: not at all 5. Poor appetite or overeating: not at all 6. Feeling bad about yourself - or that you are a failure or have let yourself or your family down: not at all 7. Trouble concentrating on things, such as reading the newspaper or watching television: not at all 8. Moving or speaking so slowly that other people could have noticed. Or the opposite - being so fidgety or restless that you have been moving around a lot more than usual: not at all 9. Thoughts that you would be better off or of hurting yourself in some way: not at all Total score: 0 Depression Screening Interpretation: Negative Depression Screening Done: Yes 22846 - PHQ-9 Billing: Yes Source: Developed by Drs. Tomasz Ortega, Nerissa Navarro, Artemio Rosas and colleagues, with an educational magdiel from [employer]. Thrive Questionnaire Date Thrive assessed: 06/26/23 I am a: Patient What is your living situation today?: I have a steady place to live Within the past 12 months, did the food you bought not last and you didn't have the money to get more?: Never true Within the past 12 months, did you worry whether your food would run out before you got money to buy more?: Never true Do you have trouble paying for medicines?: No Do you have trouble getting transportation to medical appointments?: No Do you have trouble paying your heating and electricity bill?: No Do you have trouble taking care of your child, family member or friend?: No Do you have trouble with day-to-day activities such as bathing, preparing meals, shopping, managing finances, etc.?: No Are you currently unemployed and looking for a job?: No Are you interested in more education?: No Please select the resources that you would like help with: None Currently or been in a relationship where the following occur: no concerns reported THRIVE Score: 0 AUDIT C Alcohol Use Questionnaire (AUDIT-C) 1. How often do you have a drink containing alcohol?: Never 3. How often do you have six or more drinks on one occasion?: Never Total Score: 0 ONI-7 AMB Questionnaire ONI-7 Date ONI - 7 assessed: 04/08/23 Source: Developed by Drs. Tomasz Ortega, Nerissa Navarro, Artemio Rosas and colleagues, with an educational magdiel from [employer]. Review of Systems Const Reports fatigue, Denies headache(s) and Reports poor appetite Eyes Denies loss of vision ENT Denies vertigo, Denies dizziness, Denies headache(s) and Denies sore throat Card Denies chest pain, Denies leg edema and Denies lightheadedness Resp Denies cough, Denies hemoptysis and Denies wheezing GI Denies abdominal pain, Denies melena, Denies constipation, Denies diarrhea and Denies vomiting Denies urinary frequency, Denies dysuria and Denies urinary urgency Musc Denies arthralgias, Denies joint swelling, Denies numbness and Denies tingling Neuro Denies Abnormal speech present, Denies behavioral changes, Denies vertigo, Denies dizziness, Denies headache(s), Denies loss of vision, Denies memory loss, Denies numbness and Denies tingling Psych Denies anxiety, Denies behavioral changes, Denies depression, Denies memory loss and Denies panic attacks Endo Reports fatigue Yadiel/Lymph Denies easy bleeding and Denies easy bruising Aller/Immun Denies wheezing Physical exam (Primary Care) Vital Signs: Last Vital Signs Pulse 78 06/26/23 09:12 BP 114/64 06/26/23 09:12 Pulse Ox 98 06/26/23 09:12 Oxygen Delivery Method Room Air 06/26/23 09:12 BMI result Body Mass Index 24.5 Tobacco/Smoking Status: Tobacco use Status Tobacco use date assessed 04/08/23 06/26/23 09:12 Patient Tobacco Use Status Never used Tobacco 06/26/23 09:12 e-Cigarette/Vaping Use Never Used 06/26/23 09:12 PHQ-9: PHQ-9 Score PHQ-9: Total score 0 06/26/23 09:25 Depression Screening Interpretation: Negative Thrive Assessment: Date of Thrive Assessment Date Thrive assessed 06/26/23 06/26/23 09:19 Currently or been in a relationship where the following occur: no concerns reported Const General: healthy appearing, no acute distress, alert and awake Nutritional Appearance: well nourished Orientation/consciousness: oriented to person, oriented to place and oriented to time HENMT Ears: TM's normal bilaterally General nose exam: Normal nasal mucous membranes and turbinates present Eyes Conjunctivae: conjunctivae normal Sclerae: sclerae normal Pupils: Equal, round and reactive pupils present Neck Neck: Yes no lymphadenopathy and Yes no JVD Thyroid: Thyroid normal Carotids: no bruits Resp Effort & Inspection: normal respiratory effort and not tachypneic Auscultation: no crackles, no rales, no rhonchi and no wheezes Cardio Rate: regular rate Rhythm: regular rhythm Heart sounds: no murmurs and normal S1 and S2 GI Palpation (GI): Soft to palpation, nontender, no hepatomegaly and no splenomegaly Auscultation: normal bowel sounds Skin General skin exam: no rashes or lesions noted and dry skin Neuro General: oriented to person, oriented to place and oriented to time Cranial nerves: Yes Equal, round and reactive pupils present Speech: No Abnormal speech present Gait exam (Neuro): Normal gait present Motor exam (neuro): no tremor noted Extrem Right upper extremity: full ROM Left upper extremity: full ROM Right lower extremity: full ROM; no edema Left lower extremity: full ROM; no edema Psych Mental Status: mental status grossly normal Speech and movement: Normal speech and movement present Affect: normal affect Attitude: cooperative Thought process: Normal thought process present Assessment and Plan Assessment & Plan (1) Fatigue: Code(s): R53.83 - Other fatigue Qualifiers: Fatigue type: chronic, unspecified Qualified Code(s): R53.82 - Chronic fatigue, unspecified Plan: Patient reports a 3-4 month history fatigue, weakness and lack appetite. Etiology unclear at this time thus will send for labs to evaluate for anemia, thyroid disease, electrolyte or vitamin deficiency. Otherwise she denies any depression though does have chronic anxiety. Could be related to medication namely her glaucoma eyedrops that could be causing some fatigue in slight changes in her blood pressure. She will talk to her verification engineer about changing her eyedrops regime. Orders: Orders Complete Blood Count no Diff 06/26/23 R53.83 - Other fatigue TSH reflex Free T4 06/26/23 R53.83 - Other fatigue Basic Metabolic Panel 06/26/23 R53.83 - Other fatigue Liver Panel 06/26/23 R53.83 - Other fatigue IRON PROFILE 06/26/23 D50.9 - Iron deficiency anemia, unspecified, R53.83 - Other fatigue Vitamin D 25-OH Total 06/26/23 R53.83 - Other fatigue Vitamin B12 and Folate 06/26/23 E53.8 - Deficiency of other specified B group vitamins, R53.83 - Other fatigue Coding Level of Care Code Est Pt Level 4 (75632) Diagnoses Chronic fatigue R53.82 Fatigue type: chronic, unspecified
== END 2023-06-26 09:48 | disposition home or self-care (01) ==
PROVIDERS: PCP Physician Assistant; Visit Provider Physician Assistant
DX: R53.82 Chronic fatigue, unspecified (principal)
CPT/HCPCS: 99214

== ENCOUNTER 2023-06-26 09:57 | Outpatient (REF) | payer MEDICARE, SELFPAY ==
[2023-06-26 10:28] LABS: Hematocrit 39.9 % (37.0-47.0); Hemoglobin 12.5 g/dl (12.0-16.0); Mean Corpuscular HGB Conc 31.3 g/dl (31.0-35.0); Mean Corpuscular Hemoglobin 27.3 pg (27.0-33.0); Mean Corpuscular Volume 87.1 fL (80.0-98.0); Mean Platelet Volume 9.9 fL (9.4-12.3); Platelet Count 268 X10*3/uL (160-400); Red Blood Count 4.58 X10*6/uL (4.20-5.50); Red Cell Distribution Width 13.8 % (11.0-16.0); White Blood Count 6.3 X10*3/uL (4.8-10.8)
[2023-06-26 11:24] LABS: Alanine Aminotransferase 17 U/L (0-31); Albumin Level 4.1 g/dL (3.5-5.0); Alkaline Phosphatase 100 U/L (39-117); Anion Gap 10 (12-20); Aspartate Amino Transferase 23 U/L (5-31); Bilirubin Direct 0.1 mg/dL (0.0-0.5); Bilirubin Total 0.3 mg/dL (0.0-1.0); Blood Urea Nitrogen 18 mg/dL (9-16); Calcium 9.6 mg/dL (8.4-10.2); Carbon Dioxide 29 mmol/L (22-29); Chloride 106 mmol/L (96-108); Estimated Glomerular Filt Rate > 60; Glucose Random 79 mg/dL (60-115); Iron 97 mcg/dL (30-160); Percent Iron Saturation 32 % (15-50); Potassium 4.4 mmol/L (3.3-5.1); Sodium 141 mmol/L (135-145); Total Iron Binding Capacity 305 mcg/dL (228-428); Total Protein 7.8 g/dL (6.5-8.0); Unsaturated Iron Binding 208 ug/dL
[2023-06-26 11:40] LABS: Folate > 20.0 ng/mL (> or = 4.0); Vitamin B12 1393 pg/mL (200-900)
[2023-06-26 11:41] LABS: Vitamin D 25-OH Total 40.2 ng/mL (>30)
== END 2023-06-26 09:58 | disposition home or self-care (01) ==
LOC: HO.LAB 09:57
PROVIDERS: PCP Physician Assistant; Visit Provider Physician Assistant
DX: R53.83 Other fatigue (principal); E53.8 Deficiency of other specified B group vitamins; D50.9 Iron deficiency anemia, unspecified
CPT/HCPCS: 36415; 80048; 80076; 82306; 82607; 82746; 83540; 84443; 85027

== ENCOUNTER 2023-07-10 10:00 | Outpatient (RCR) | payer MEDICARE, SELFPAY ==
--- NOTE | 2023-07-04 14:12 | MHC.PT.EP ---
[facility] [place] [facility] [place] [facility] [place] [facility] [address] [phone] F: [phone] F: [phone] F: [phone] F: [phone] Physical Therapy Plan of Care Date of Evaluation: 06/14/23 Date of Surgery: Diagnosis: Cervicalgia Assessment: Pt is a 67 y/o female with Hx of L sided trigeminal neuralgia who is referred to PT for eval and treat of cervicalgia who reports about 3 months of steady cervical pain which is resulting in decreased tolerance for reading and watching TV, lifting objects of weight, turning head to end ranges including driving, as well as disturbed sleep. Pt is deemed an appropriate candidate to receive skilled PT services to address their physical impairments in order to improve their functional ability. Frequency and Duration: The patient will be seen 1 x/ wk x 6 wks. Short Term Goals: Initiate home program. Improve baseline pain to < 6/10; initial 8/10. Mines Inspector Goals: I with home program. Improve NDI by at least 9 points. Pt will be able to rotate her head without end range pain. Pt will report at most 1/4 disturbed night sleep; initial: 50% disturbed. Treatment Plan: Modalities to reduce pain, spasms and effusion. Manual therapy to restore motion and function. Therapeutic exercise to improve strength and flexibility. Neuromuscular re-education for posture and balance. Therapeutic activities to return to functional activities of daily living. Electronically signed by: David Flores PT. Please sign and return to therapist. Thank you for your referral.
--- NOTE | 2023-09-16 07:41 | MHC.PT.DC ---
[facility] [place] Office [place] Office [place] [facility] [address] John Stewart [address] [phone] F: [phone] F: [phone] F: [phone] F: [phone] Physical Therapy Discharge Report Diagnosis: Cervicalgia Date of Surgery: Date of Evaluation: 06/14/23 Date of Discharge: 09/16/23 Treatments to Date: 4 Cancellations to Date: No Shows to Date: Discharge Status: Patient Elected to Stop Discharge Summary: Pt reports overall some improvement. No adverse effects to Tx. manual comfortable. continue as ney. Electronically signed by: David Flores PT Please sign and return to therapist. Thank you for your referral.
== END 2023-09-16 07:41 | disposition home or self-care (01) ==
LOC: HO.PT 10:00
PROVIDERS: PCP Physician Assistant; Visit Provider Internal Medicine
DX: M54.2 Cervicalgia (principal)
CPT/HCPCS: 97110; 97140; 97161

== ENCOUNTER 2023-07-11 14:52 | Outpatient (AMB) | payer MEDICARE, SELFPAY ==
--- NOTE | 2023-07-11 15:00 | A.OFFVIS_ITS ---
Intake Vital Signs 07/11/23 15:06 Height 5 ft 6 in Weight 155 lb 4 oz BMI 25.1 BP 115/70 Blood Pressure Location Lt brachial Position Sitting Pulse 70 Pulse Source Pulse Oximeter Pulse Oximetry (%) 97 Oxygen Delivery Method Room Air Intake Visit Reasons: 6m follow up- CONF w/address Intake Note: Patient presents for 6 months F/U. For the past 3 to 4 moths have been getting a lot of headaches and lots of neck pain. Allergies carbamazepine Allergy (Severe, Verified 07/11/23 15:06) Itchyness, rash all over body oxcarbazepine Allergy (Severe, Verified 07/11/23 15:06) Hives Iodinated Contrast Media [IODINATED CONTRAST MEDIA - IV DYE] Allergy (Intermediate, Verified 07/11/23 15:06) RASH, LIPS SWELLING peach [PEACH] Allergy (Mild, Verified 07/11/23 15:06) RASH.ITCHY pear [PEAR] Allergy (Mild, Verified 07/11/23 15:06) RASH, ITCHY strawberry [STRAWBERRY] Allergy (Mild, Verified 07/11/23 15:06) RASH, ITCHY Egg Derived [EGG DERIVED] Allergy (Unknown, Verified 07/11/23 15:06) UNKNOWN HPI HPI Comments History of Present Illness Details 67 y/o female patient presents for follo w up of trigeminal neuralgia. Pt reports that the trigeminal neuralgia is better managed with Lyrica 75 mg BID. She stopped taking baclofen. She tired lamictal but stopped due to dizziness and weakness. Pt also tried carbamazepine and she had allergies, cymbalta- but eye pressure in creased ( h/o glaucoma). She still has left side facial, jaw pain when she eats and brushes her teeth, but less frequently. Pt reports that she tries to eat healthy and start drink a tea to manage her sinus problem. She noticed that sinus congestion aggravate her left facial pain, and headache. She tried allergy shot but it was not really helpful. She takes allergy medication daily. Pt reports sinus pain, thinks that she has sinus infection, and plans to go urgent care today. Pt reports that her neck pain has worsened lately, it is intermittent, and her neck can be tired and tightened. She started physical therapy 4 physical therapy done so far. MRA of head result was normal with worsened sphenoid sinus mucosal disease with fluid levels. Moderate right maxillary sinus mucosal thickening with a small dependent fluid level as well. [facility] Surgical History History of tonsillectomy Family History Father Cancer Multiple sclerosis Mother Cancer Leukemia Sister Multiple sclerosis Social History Housing: House Alcohol intake: never Patient Tobacco Use Status: Never used Tobacco e-Cigarette/Vaping Use: Never Used Second Hand Smoke Exposure: No service: No Current occupational status: retired Cognitive needs: No Hearing needs: No Vision needs: Yes (glasses) Review of Systems Const All systems reviewed & are unremarkable except as noted in HPI and below ENT Reports Normal hearing present Neuro Reports Normal hearing present Physical Exam Vital Signs: Last Vital Signs Pulse 70 07/11/23 15:06 BP 115/70 07/11/23 15:06 Pulse Ox 97 07/11/23 15:06 Oxygen Delivery Method Room Air 07/11/23 15:06 BMI result Body Mass Index 25.1 Const Other: Sinus pain with palpitation. General: cooperative Nutritional Appearance: average body habitus Orientation/consciousness: patient oriented x3 Neck Neck: Yes full ROM and Yes supple Resp Effort & Inspection: normal respiratory effort and able to speak in complete sentences Neuro General: patient oriented x3 and gait normal Cranial nerves: Yes Bilaterally intact EOM present, Yes Normal facial strength present, Yes Midline tongue present, Yes Normal hearing present, Yes Ability to bilaterally rotate head present and Yes Ability to bilaterally elevate shoulders present Cognition (Neuro): normal cognition Gait exam (Neuro): Normal gait present Assessment & Plan Assessment & Plan (1) Trigeminal neuralgia: Code(s): G50.0 - Trigeminal neuralgia (2) Sinusitis: Code(s): J32.9 - Chronic sinusitis, unspecified Plan Advised patient to continue to take Lyrica 75mg BID. Advised patient to try NetiPot to clear her sinus. Patient with 3 year history of left sided trigeminal neuralgia. She has trialed gabapentin, pregabalin, Oxcarbazepine , carbamazepine, lamictal and Laser treatment through chiropractic. Continue to do physical therapy for neck pain and try magnesium 400 mg qHS. Medications: New magnesium oxide 400 mg PO DAILY 30 days 30 tabs 6RF Coding Level of Care Code Est Pt Level 3 (50252) Diagnoses Trigeminal neuralgia G50.0 Sinusitis J32.9
[2023-07-11 15:06] VITALS: BP 115/70; PULSE 70; O2SAT 97; BMI 25.1
== END 2023-07-11 15:29 | disposition home or self-care (01) ==
PROVIDERS: PCP Physician Assistant; Visit Provider Nurse Practitioner Family
DX: G50.0 Trigeminal neuralgia (principal); J32.9 Chronic sinusitis, unspecified
CPT/HCPCS: 99213

== ENCOUNTER → 2023-07-11 14:52 | Outpatient (BNVA) | payer MEDICARE, SELFPAY | PROVIDERS: PCP Physician Assistant; Visit Provider Nurse Practitioner Family | DX: G50.0 Trigeminal neuralgia (principal); J32.9 Chronic sinusitis, unspecified | CPT/HCPCS: 99212 ==

== ENCOUNTER 2023-07-12 10:23 | Outpatient (AMB) | payer MEDICARE, SELFPAY ==
--- NOTE | 2023-07-12 10:21 | AM.OFFWIN_ITS ---
Intake Vital Signs 07/12/23 10:22 Height 5 ft 6 in Weight 156 lb BMI 25.2 BP 110/62 Blood Pressure Location Lt brachial Position Sitting Pulse 79 Pulse Source Pulse Oximeter Temp 97.0 F Temp Source Temporal Artery Scan Pulse Oximetry (%) 95 Oxygen Delivery Method Room Air Intake Visit Reasons: EP sinus infection (lobby) Intake Note: pt is here today for sinus infection started 2weeks ago Patient Tobacco Use Status: Never used Tobacco Allergies carbamazepine Allergy (Severe, Verified 07/12/23 10:28) Itchyness, rash all over body oxcarbazepine Allergy (Severe, Verified 07/12/23 10:28) Hives Iodinated Contrast Media [IODINATED CONTRAST MEDIA - IV DYE] Allergy (Intermediate, Verified 07/12/23 10:28) RASH, LIPS SWELLING peach [PEACH] Allergy (Mild, Verified 07/12/23 10:28) RASH.ITCHY pear [PEAR] Allergy (Mild, Verified 07/12/23 10:28) RASH, ITCHY strawberry [STRAWBERRY] Allergy (Mild, Verified 07/12/23 10:28) RASH, ITCHY Egg Derived [EGG DERIVED] Allergy (Unknown, Verified 07/12/23 10:28) UNKNOWN Do you need a note to return to daycare/school/sports/work: No HPI HPI Comments History of Present Illness Details 67-year-old female complaining of fronta l sinus tenderness and nasal congestion for the last 2 weeks. She states she has a mild cough but feels as though that is from her postnasal drip. Denies any fever chills sweats PFSH Surgical History History of tonsillectomy Family History Father Cancer Multiple sclerosis Mother Cancer Leukemia Sister Multiple sclerosis Social History Housing: House Alcohol intake: never Patient Tobacco Use Status: Never used Tobacco e-Cigarette/Vaping Use: Never Used Second Hand Smoke Exposure: No service: No Current occupational status: retired Cognitive needs: No Hearing needs: No Vision needs: Yes (glasses) Review of Systems Const All systems reviewed & are unremarkable except as noted in HPI and below Physical Exam Vital Signs: Last Vital Signs Temp 97.0 F 07/12/23 10:22 Pulse 79 07/12/23 10:22 BP 110/62 07/12/23 10:22 Pulse Ox 95 07/12/23 10:22 Oxygen Delivery Method Room Air 07/12/23 10:22 BMI result Body Mass Index 25.2 Const General: healthy appearing and no acute distress HEENT Head: Yes normal to inspection, Yes normocephalic and Yes atraumatic Ears: hearing grossly normal bilaterally, TM's normal bilaterally and EAC's normal General nose exam: Normal external nose present Face and sinus: Yes sinus tenderness Mouth: Normal oral and palatal mucosa present Throat: Yes posterior oropharynx normal and Yes postnasal drainage Eyes General: appearance normal, both eyes and all related structures Resp Effort & Inspection: normal respiratory effort Auscultation: clear to auscultation bilaterally Cardio Rate: regular rate Rhythm: regular rhythm Heart sounds: S1 normal heart sound present and S2 normal heart sound present Assessment & Plan Assessment & Plan (1) Sinusitis: Code(s): J32.9 - Chronic sinusitis, unspecified Plan: The patient is put on amoxicillin and follow up with her PCP as needed Plan See plan Medications: New amoxicillin 875 mg PO BID 7 days 14 tabs 0RF Coding Level of Care Code Est Pt Level 3 (81424) Diagnoses Sinusitis J32.9
[2023-07-12 10:22] VITALS: BP 110/62; PULSE 79; TEMP 36.1; O2SAT 95; BMI 25.2
== END 2023-07-12 10:48 | disposition home or self-care (01) ==
PROVIDERS: PCP Physician Assistant; Visit Provider Physician Assistant Medical
DX: J32.9 Chronic sinusitis, unspecified (principal)
CPT/HCPCS: 99213

== ENCOUNTER 2023-07-29 14:23 | Outpatient (AMB) | payer MEDICARE, SELFPAY ==
--- NOTE | 2023-07-29 14:25 | A.OFFPC_ITS ---
Vital Signs 07/29/23 14:34 Height 5 ft 6 in Weight 156 lb 4 oz BMI 25.2 BP 110/66 Blood Pressure Location Lt brachial Position Sitting Pulse 85 Pulse Source Pulse Oximeter Pulse Oximetry (%) 95 Oxygen Delivery Method Room Air Intake Visit Reasons: PE Intake Note: Patient is here today for a physical. Behavioral Technician Required: No Accompanied by: Self / Same As Patient Allergies carbamazepine Allergy (Severe, Verified 07/29/23 14:41) Itchyness, rash all over body oxcarbazepine Allergy (Severe, Verified 07/29/23 14:41) Hives Iodinated Contrast Media [IODINATED CONTRAST MEDIA - IV DYE] Allergy (Intermediate, Verified 07/29/23 14:41) RASH, LIPS SWELLING peach [PEACH] Allergy (Mild, Verified 07/29/23 14:41) RASH.ITCHY pear [PEAR] Allergy (Mild, Verified 07/29/23 14:41) RASH, ITCHY strawberry [STRAWBERRY] Allergy (Mild, Verified 07/29/23 14:41) RASH, ITCHY Egg Derived [EGG DERIVED] Allergy (Unknown, Verified 07/29/23 14:41) UNKNOWN Medication List - Last Reconciled 07/29/23 by Ray Mak PA-C albuterol sulfate 90 mcg/actuation (ProAir HFA) 2 puffs inhalation Q4-6H PRN 30 days calcium carbonate-vitamin D3 500 mg-10 mcg (400 unit) (Oyster Shell Calcium- Vitamin D3) 1 tab PO BID 90 days dorzolamide-timolol (PF) 2-0.5 % 1 drp ophthalmic (eye) BID esomeprazole magnesium (Nexium) 40 mg PO DAILY fluticasone propionate 50 mcg/actuation 1 spray intranasal DAILY 30 days latanoprost 0.005% 1 drp ophthalmic (eye) DAILY magnesium oxide 400 mg PO DAILY 30 days netarsudil 0.02% 1 drp ophthalmic-Left QPM pregabalin (Lyrica) 75 mg PO BID 90 days pyridoxine (vitamin B6) 50 mg PO DAILY Tobacco use date assessed: 04/08/23 Fall risk assessment: No Falls in past year Last assessed Fall Risk: 07/29/23 Dental Screening Dental Screen Date: 04/08/23 HPI PE HPI Details Patient is a 67-year-old female here today for a routine annual physical .? Patient has a past history significant for major depressive disorder, trigeminal neuralgia. Concern--> continues to daily fatigue, all labs recently done within normal range. Etiology unclear of her chronic fatigue.--> Suspecting a side effect of medication. Trigeminal neuralgia : Interval history-->? Has discontinued use of gabapentin.?Has trialed Oxycarbamazapine. .? She does have GI side effects from time to time from gabapentin use. Has seen [facility] neurologist for 2nd opinion on her trigeminal neuralgia. Has followed up with local neurologist and has gotten had MRA and MRI with chronic ischemic changes.? Now continues on Lyrica 75 mg with decent relief of her trigeminal neuralgia pain. .. Osteopenia:? Most recently had a bone density screening showing osteopenia . 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 Colon cancer screening: Done in 2017 - normal- repeat 10 years = Up-to-date with colonoscopy Laboratory Tests 06/26/23 10:07 RBC 4.58 Hgb 12.5 Creatinine 0.82 Vitamin B12 1393 H 25-OH Vitamin D To mario 40.2 TSH 2.30 PFSH Surgical History History of tonsillectomy Family History Father Cancer Multiple sclerosis Mother Cancer Leukemia Sister Multiple sclerosis Social History Housing: House Alcohol intake: never Patient Tobacco Use Status: Never used Tobacco e-Cigarette/Vaping Use: Never Used Second Hand Smoke Exposure: No service: No Current occupational status: retired Cognitive needs: No Hearing needs: No Vision needs: Yes (glasses) Questionnaire Thrive Questionnaire Date Thrive assessed: 06/26/23 ONI-7 AMB Questionnaire ONI-7 Date ONI - 7 assessed: 04/08/23 Source: Developed by Drs. Tomasz Ortega, Nerissa Navarro, Artemio gallegos nd colleagues, with an educational magdiel from [employer]. Review of Systems Const Denies body aches, Denies chills, Denies excessive sweating, Reports fatigue, Denies fever(s) and Denies headache(s) Eyes Denies blurry vision ENT Denies dysphagia, Denies vertigo, Denies dizziness, Denies headache(s), Denies hearing loss and Denies tinnitus Card Denies chest pain, Denies chest pain with activity, Denies syncope, Denies irregular heart rhythm and Denies dyspnea Resp Denies chest congestion, Denies cough, Denies hemoptysis, Denies dyspnea and Denies wheezing GI Denies abdominal pain, Denies melena, Denies hematochezia, Denies coffee ground emesis, Denies dysphagia, Denies diarrhea, Denies nausea and Denies vomiting Denies urinary frequency, Denies dysuria, Denies urinary hesitancy and Denies urinary urgency Musc Denies arthralgias, Denies limited range of motion, Denies muscle cramps and Denies muscle weakness Skin/Breast Denies rash and Denies skin ulcer Neuro Denies Abnormal speech present, Denies confusion, Denies vertigo, Denies dizziness, Denies syncope, Denies headache(s), Denies memory loss and Denies seizure-like activity Psych Denies anxiety, Denies confusion, Denies depression, Denies memory loss, Denies panic attacks and Denies paranoia Endo Denies excessive sweating, Reports fatigue, Denies flushing, Denies polydipsia and Denies polyuria Aller/Immun Denies wheezing Physical exam (Primary Care) Vital Signs: Last Vital Signs Pulse 85 07/29/23 14:34 BP 110/66 07/29/23 14:34 Pulse Ox 95 07/29/23 14:34 Oxygen Delivery Method Room Air 07/29/23 14:34 BMI result Body Mass Index 25.2 Tobacco/Smoking Status: Tobacco use Status Tobacco use date assessed 04/08/23 07/29/23 14:25 Patient Tobacco Use Status Never used Tobacco 07/29/23 14:25 e-Cigarette/Vaping Use Never Used 07/29/23 14:25 Thrive Assessment: Date of Thrive Assessment Date Thrive assessed 06/26/23 07/29/23 14:25 Const General: cooperative, comfortable, no acute distress, alert and awake; No confusion Orientation/consciousness: oriented to person, oriented to place, patient oriented x3 and No confusion HENMT Head: Yes normocephalic Ears: external ears normal and TM's normal bilaterally Face and sinus: No sinus tenderness Mouth: Normal oral and palatal mucosa present and tongue normal Teeth and gingiva: dentition normal and gingiva normal Throat: Yes posterior oropharynx normal, Yes tonsils normal and Yes uvula midline Eyes Conjunctivae: conjunctivae normal Sclerae: sclerae normal Pupils: Equal, round and reactive pupils present EOM: EOMs intact bilaterally Direct Ophthalmoscopy: No no photophobia Neck Neck: Yes no lymphadenopathy, No tender and Yes no JVD Thyroid: Thyroid normal Carotids: no bruits Chest Chest palpation & inspection: no tenderness Resp Effort & Inspection: normal respiratory effort, no audible wheezes, not labored and no stridor Auscultation: no crackles, no rales, no rhonchi and no wheezes Cardio Jugular venous distension: no JVD Rate: regular rate, not bradycardic and not tachycardic Rhythm: regular rhythm Bruits: no carotid bruits Peripheral pulses: Peripheral pulses 2+ throughout GI Inspection: Yes normal to inspection, No abdominal wall ecchymosis and No visible herniation Palpation (GI): Soft to palpation, nontender, no guarding, not rigid and No hepatosplenomegaly present Auscultation: normoactive bowel sounds General: Yes no CVA tenderness Back/Spine/Pelvis Back: no CVA tenderness and No back tenderness Cervical Spine: cervical ROM normal Thoracic/Lumbar Spine: thoracic and lumbar spine normal to inspection, straight leg raise negative bilaterally, No thoraco-lumbar ROM limited and No lumbar spinal tenderness Skin Lesions: no lesions Rashes: no rashes Wounds: no wounds Neuro General: oriented to person, oriented to place, patient oriented x3, CN's II-XI intact bilaterally and No confusion Cranial nerves: Yes Equal, round and reactive pupils present and Yes Normal accommodation reflex present Cognition (Neuro): normal cognition Speech: No Abnormal speech present Gait exam (Neuro): Normal gait present Motor exam (neuro): 5/5 motor strength present throughout Extrem Right upper extremity: full ROM; no cyanosis Left upper extremity: full ROM; no cyanosis Right lower extremity: no edema Left lower extremity: no edema Psych Appearance: grossly normal Mental Status: mental status grossly normal Affect: normal affect Attitude: cooperative Thought process: Normal thought process present Assessment and Plan Assessment & Plan (1) Annual physical exam: Code(s): Z00.00 - Encounter for general adult medical examination without abnormal findings (2) MDD (major depressive disorder): Code(s): F32.9 - Major depressive disorder, single episode, unspecified Qualifiers: Active/Remission status: currently active Major depression episode severity: moderate Major depression recurrence: recurrent Qualified Code(s): F33.1 - Major depressive disorder, recurrent, moderate Plan: Patient reports her depression has been well controlled. Not on any depression medication at this time. (3) Trigeminal neuralgia: Code(s): G50.0 - Trigeminal neuralgia Plan: Continues on Lyrica 75 mg b.i.d.. Also continues to follow Neurology. Her facial pain is fairly well controlled does have times of increased pain. She does report some fatigue though is unclear if this is related to his side effects from Lyrica. She will ask her neurology provider. (4) Fatigue: Code(s): R53.83 - Other fatigue Qualifiers: Fatigue type: chronic, unspecified Qualified Code(s): R53.82 - Chronic fatigue, unspecified Plan: Patient continues with daily fatigue, unclear etiology at this time though may be related to her neuromodulator medications side effect. She will discuss this with her neurologist. Orders: Orders Complete Blood Count no Diff 6 Months Z13.1 - Encounter for screening for diabetes mellitus Lipid Panel 6 Months E78.9 - Disorder of lipoprotein metabolism, unspecified Comprehensive Theresa. Panel Fast 6 Months Z13.1 - Encounter for screening for diabetes mellitus Coding Level of Care Code Est Pt Prev Care >65y(59518) Diagnoses Annual physical exam Z00.00 Moderate episode of recurrent major depressive disorder F33.1 Active/Remission status: currently active Major depression episode severity: moderate Major depression recurrence: recurrent Trigeminal neuralgia G50.0 Chronic fatigue R53.82 Fatigue type: chronic, unspecified
[2023-07-29 14:34] VITALS: BP 110/66; PULSE 85; O2SAT 95; BMI 25.2
== END 2023-07-29 15:04 | disposition home or self-care (01) ==
PROVIDERS: PCP Physician Assistant; Visit Provider Physician Assistant
DX: Z00.00 Encounter for general adult medical examination without abnormal findings (principal); F33.1 Major depressive disorder, recurrent, moderate; G50.0 Trigeminal neuralgia; R53.82 Chronic fatigue, unspecified
CPT/HCPCS: 99397

== ENCOUNTER 2023-11-02 19:15 | Emergency (ER) | payer MEDICARE, SELFPAY ==
[2023-11-02 19:17] VITALS: BP 146/79; PULSE 73; RESP 16; TEMP 36.4; O2SAT 98; BMI 25.2
--- NOTE | 2023-11-02 20:17 | ED_ITS ---
HPI - General Adult General Chief complaint: General Medical Stated complaint: left side sinus pain Time Seen by Provider: 11/02/23 21:39 Source: patient and RN notes reviewed Mode of arrival: ambulatory Limitations: no limitations History of Present Illness ED Provider: Jeimy Michele PA-C HPI narrative: This is a 67-year-old female, with a history of trigeminal neuralgia, who presents emergency department with complaints of left-sided facial pressure x6 weeks. Patient states that she has a history of sinus infections and states that her symptoms are consistent with the sinus infections she has had in the past. Patient states that she has a pressure-like pain that starts in her frontal sinuses, and typically occurs with coughing and with touching her sinuses. She denies any fevers or chills. No dizziness, severe headache, chest pain, shortness of breath, abdominal pain, nausea, vomiting or diarrhea. Denies taking any medications at home to treat her current symptoms. Last sinus infection was about 1 year ago. She states that her sinus infections require her to be put on steroids as well as antibiotics. She is followed by her early childhood associate teacher however was unable to be seen for this as they did not have any available appointments. No other complaints or concerns at this time. MD complaint: Sinus pain Onset (ago): week(s) Location: face Radiation: non-radiation Quality: aching Pain Consistency: constant Relieving factors: none Exacerbating factors: none Associated symptoms: denies other symptoms Treatments prior to arrival: none Related Data Home Medications ?Medication ?Instructions ?Recorded ?Confirmed dorzolamide-timolol (PF) 2 %-0.5 % 1 drp ophthalmic (eye) BID 12/30/19 07/29/23 eye drops in a dropperette latanoprost 0.005 % eye drops 1 drp ophthalmic (eye) DAILY 12/30/19 07/29/23 esomeprazole magnesium 40 mg 40 mg PO DAILY 11/01/22 07/29/23 capsule,delayed release (Nexium) netarsudil 0.02 % eye drops 1 drp ophthalmic-Left QPM 06/26/23 07/29/23 Previous Rx's ?Medication ?Instructions ?Recorded albuterol sulfate 90 mcg/actuation 2 puff inhalation Q4-6H PRN 01/08/21 aerosol inhaler (ProAir HFA) bronchospasm 30 days #6.7 grams calcium carbonate 500 mg-vitamin 1 tab PO BID 90 days #180 tabs 04/08/23 D3 10 mcg (400 unit) tablet (Oyster Shell Calcium-Vitamin D3) fluticasone propionate 50 1 spray intranasal DAILY 30 days 06/23/23 mcg/actuation nasal #16 grams spray,suspension pyridoxine (vitamin B6) 50 mg 50 mg PO DAILY #90 tabs 06/23/23 tablet magnesium oxide 400 mg PO DAILY 30 days #30 tabs 07/11/23 pregabalin 75 mg capsule (Lyrica) 75 mg PO BID 90 days #180 caps 10/10/23 amoxicillin 875 mg-potassium 1 tab PO BID #14 tabs 11/02/23 clavulanate 125 mg tablet prednisone 20 mg tablet 20 mg PO DAILY 5 days #5 tabs 11/02/23 Allergies Allergy/AdvReac Type Severity Reaction Status Date / Time carbamazepine Allergy Severe Itchyness, Verified 07/29/23 14:41 rash all over body oxcarbazepine Allergy Severe Hives Verified 11/02/23 19:19 Iodinated Contrast Media Allergy Intermediate RASH, LIPS Verified 11/02/23 19:19 [IODINATED CONTRAST MEDIA - SWELLING IV DYE] peach [PEACH] Allergy Mild RASH.ITCHY Verified 11/02/23 19:19 pear [PEAR] Allergy Mild RASH, ITCHY Verified 11/02/23 19:19 strawberry [STRAWBERRY] Allergy Mild RASH, ITCHY Verified 11/02/23 19:19 Egg Derived [EGG DERIVED] Allergy Unknown UNKNOWN Verified 11/02/23 19:19 Review of Systems Review of Systems: Yes all other systems are reviewed and are negative Constitutional: Constitutional: Reports as per [facility] Past Medical History Surgical History History of tonsillectomy Family History Family History Father Cancer Multiple sclerosis Mother Cancer Leukemia Sister Multiple sclerosis Social History Social History Housing: House Alcohol intake: never Patient Tobacco Use Status: Never used Tobacco e-Cigarette/Vaping Use: Never Used Second Hand Smoke Exposure: No Advance Directives: No Advance Directives Information Provided: No Do you have a plan to hurt others: No Plan service: No Current occupational status: retired Cognitive needs: No Hearing needs: No Vision needs: Yes (glasses) Physical Exam ED Vital Signs: Vital Signs - 24 hr 11/02/23 19:17 11/02/23 20:29 11/02/23 22:42 Temperature 97.6 F 98.2 F 98.2 F Pulse Rate 73 66 66 Respiratory Rate 16 16 16 Blood Pressure 146/79 H 145/68 H 145/68 H Pulse Oximetry 98 98 98 Oxygen Delivery Method Room Air Room Air Room Air BMI result Body Mass Index 25.2 Const General: cooperative, comfortable and no acute distress Orientation/consciousness: patient oriented x3 Limitations: no limitations HENMT Other: Patient has tenderness palpation along the frontal and maxillary sinuses, no ethmoid tenderness. Head: Yes normal to inspection, Yes normocephalic and Yes atraumatic Ears: hearing grossly normal bilaterally and TM's normal bilaterally General nose exam: Normal external nose present Face and sinus: Yes normal facial exam Mouth: Normal oral and palatal mucosa present, oropharynx normal and moist mucous membranes Throat: Yes posterior oropharynx normal, Yes tonsils normal and Yes uvula midline Eyes General: appearance normal, both eyes and all related structures Eyelids: Yes eyelids normal Conjunctivae: conjunctivae normal Sclerae: sclerae normal Pupils: Equal, round and reactive pupils present EOM: EOMs intact bilaterally Neck Neck: Yes normal visual inspection, Yes full ROM and Yes no lymphadenopathy Lymphatic: no lymphadenopathy noted Chest Chest palpation & inspection: normal inspection of the chest Resp Effort & Inspection: normal respiratory effort and able to speak in complete sentences Auscultation: clear to auscultation bilaterally, no crackles, no rales, no rhonchi and no wheezes Cardio Rate: regular rate Rhythm: regular rhythm Heart sounds: S1 normal heart sound present and S2 normal heart sound present GI Inspection: Yes normal to inspection Skin General skin exam: no rashes or lesions noted Trauma: no lacerations or abrasions Wounds: no wounds Neuro General: patient oriented x3 and moves all extremities Cranial nerves: Yes Equal, round and reactive pupils present Extrem General: Yes normal to inspection Right upper extremity: normal to inspection Left upper extremity: normal to inspection Right lower extremity: normal to inspection Left lower extremity: normal to inspection Course Course Course Narrative: RME performed by Emma Valladares PA-C. Patient is a 67 year old assigned female at presenting to the emergency department with concerns of a sinus infection. Patient states over the last 6 weeks she has had sinus pain that seems to be worsening. Detailed physical exam and review of systems are deferred to the social scientist. Swabs ordered. Patient placed back in the waiting room pending room availability and results. Medications Administered Discontinued Medications Generic Name Dose Route Start Last Admin Trade Name Steven PRN Reason Stop Dose Admin Amoxicillin/Clavulanate Potassium 875 mg 11/02/23 21:59 11/02/23 22:14 Amoxicillin/Potassium Clav 875 Mg Tablet PO 11/02/23 22:00 875 mg ONCE ONE Administration Medical Decision Making Medical Decision Making [facility] Narrative: This is a 67-year-old female who presents emergency department with complaints of left-sided facial pain x6 weeks. On arrival, vital signs within normal limits. She is nontoxic appearing, speaking full sentences. She states that she has a history of sinus infections in her symptoms feel similar to the sinus infections she has had in the past. She has tenderness palpation along her maxillary and frontal sinuses, no ethmoid sinus tenderness. She has no fevers or chills. Given that her symptoms have been present for the last 6 weeks, will treat with antibiotics. Also encouraged to drink plenty of fluids get plenty of rest. Patient requesting steroids as this provides her with significant relief with the sinus infection she has had in the past. She states that often times she needs the combination of antibiotics and steroids to alleviate her symptoms. She will follow-up with her early childhood associate teacher. Viral swabs were obtained which were negative. Patient was given strict return precautions. Patient stable for discharge. Differential Diagnosis Differential Diagnoses: The differential diagnosis associated with the presentation includes Sinusitis, URI, flu, RSV, COVID Lab Data [facility] Lab Attestation statement: I reviewed the patient's lab results. Negative viral swabs Labs: Lab Results 11/02/23 Range/Units 19:46 Influenza Type A (PCR) NEGATIVE (Negative) Influenza Type B (PCR) NEGATIVE (Negative) RSV RNA Qual (PCR) NEGATIVE (Negative) SARS-CoV-2 RNA (RT-PCR) NEGATIVE (Negative) Discharge Plan Discharge Clinical Impression: Sinusitis Patient Disposition: Home, Self-Care Instructions: Sinusitis (ED) Additional Instructions: Your seen in the emergency department due to sinus pain. You tested negative for COVID, RSV, and flu. You have a sinus infection, please take prescribed antibiotic as directed. You also requested steroids to with your symptoms, I am prescribing you prednisone, please take as prescribed. This is a medication very similar to methylprednisolone. Drink plenty of fluids get plenty of rest. If any new or worsening symptoms occur including but not limited to chest pain, shortness of breath, please return for re-evaluation. Follow-up with your primary care physician Prescriptions: New amoxicillin-pot clavulanate 875-125 mg tablet 1 tab PO BID Qty: 14 0RF prednisone 20 mg tablet 20 mg PO DAILY 5 Days Qty: 5 0RF No Action albuterol sulfate [ProAir HFA] 90 mcg/actuation HFA aerosol inhaler 2 puff inhalation Q4-6H PRN (Reason: bronchospasm) 30 Days Qty: 6.7 0RF pyridoxine (vitamin B6) 50 mg tablet 50 mg PO DAILY Qty: 90 1RF fluticasone propionate 50 mcg/actuation spray,suspension 1 spray intranasal DAILY 30 Days Qty: 16 6RF Rx Instructions: administer into each nostril pregabalin [Lyrica] 75 mg capsule 75 mg PO BID 90 Days Qty: 180 0RF dorzolamide-timolol (PF) 2-0.5 % dropperette 1 drp ophthalmic (eye) BID latanoprost 0.005 % drops 1 drp ophthalmic (eye) DAILY netarsudil 0.02 % drops 1 drp ophthalmic-Left QPM calcium carbonate-vitamin D3 [Oyster Shell Calcium-Vit D3] 500 mg-10 mcg (400 unit) tablet 1 tab PO BID 90 Days Qty: 180 1RF esomeprazole magnesium [Nexium] 40 mg capsule,delayed release(DR/EC) 40 mg PO DAILY magnesium oxide 400 mg magnesium tablet 400 mg PO DAILY 30 Days Qty: 30 6RF Interventions: ED Discharge Assessment Last Done: 11/02/23 22:42 Discharge Date/Time: 11/02/23 22:42 Print Language: Hebrew
[2023-11-02 20:29] VITALS: BP 145/68; PULSE 66; RESP 16; TEMP 36.8; O2SAT 98
[2023-11-02 20:33] LABS: Influenza A PCR NEGATIVE (Negative); Influenza B PCR NEGATIVE (Negative); Resp Syncy Virus RNA Qual PCR NEGATIVE (Negative); SARS COV2 PCR INHOUSE NEGATIVE (Negative)
[2023-11-02] MEDS: Amoxicillin/Potassium Clav 875 MG TABLET PO (22:14)
[2023-11-02 22:42] VITALS: BP 145/68; PULSE 66; RESP 16; TEMP 36.8; O2SAT 98
== END 2023-11-02 22:42 | disposition home or self-care (01) ==
PROVIDERS: Emergency Provider Emergency Medicine; PCP Physician Assistant
DX: J32.8 Other chronic sinusitis (principal); Z03.818 Encounter for observation for suspected exposure to other biological agents ruled out; J45.909 Unspecified asthma, uncomplicated
CPT/HCPCS: 0241U; 99283

== ENCOUNTER 2023-11-13 08:58 | Outpatient (AMB) | payer MEDICARE, SELFPAY ==
--- NOTE | 2023-11-13 09:27 | MHC.PC.OV ---
Vital Signs 11/13/23 09:28 Height 5 ft 6 in Weight 156 lb BMI 25.2 BP 130/68 Blood Pressure Location Lt brachial Position Sitting Pulse 84 Pulse Source Pulse Oximeter Pulse Oximetry (%) 99 Oxygen Delivery Method Room Air Intake Visit Reasons: EDF [facility] 11/01 Nasal & stomach pain Intake Note: Patient is here to follow-up after a visit the emergency department at [facility] on 11/02/23 for Sinusitis. 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: No Allergies carbamazepine Allergy (Severe, Verified 11/13/23 09:28) Itchyness, rash all over body oxcarbazepine Allergy (Severe, Verified 11/13/23 09:28) Hives Iodinated Contrast Media [IODINATED CONTRAST MEDIA - IV DYE] Allergy (Intermediate, Verified 11/13/23 09:28) RASH, LIPS SWELLING peach [PEACH] Allergy (Mild, Verified 11/13/23 09:28) RASH.ITCHY pear [PEAR] Allergy (Mild, Verified 11/13/23 09:28) RASH, ITCHY strawberry [STRAWBERRY] Allergy (Mild, Verified 11/13/23 09:28) RASH, ITCHY Egg Derived [EGG DERIVED] Allergy (Unknown, Verified 11/13/23 09:28) UNKNOWN Medication List - Last Reconciled 11/13/23 by Charity Burch PA-C albuterol sulfate 90 mcg/actuation (ProAir HFA) 2 puffs inhalation Q4-6H PRN 30 days brimonidine 0.2% drps ophthalmic (eye) calcium carbonate-vitamin D3 500 mg-10 mcg (400 unit) (Oyster Shell Calcium-Vitamin D3) 1 tab PO BID 90 days dorzolamide-timolol (PF) 2-0.5 % 1 drp ophthalmic (eye) BID esomeprazole magnesium (Nexium) 40 mg PO DAILY fluticasone propionate 50 mcg/actuation 1 spray intranasal DAILY 30 days latanoprost 0.005% 1 drp ophthalmic (eye) DAILY magnesium oxide 400 mg PO DAILY 30 days netarsudil 0.02% 1 drp ophthalmic-Left QPM pregabalin (Lyrica) 75 mg PO BID 90 days pyridoxine (vitamin B6) 50 mg PO DAILY Tobacco use date assessed: 04/08/23 Fall risk assessment: No Falls in past year Last assessed Fall Risk: 11/13/23 Dental Screening Dental Screen Date: 04/08/23 HPI EDF [facility] 11/01 Nasal & stomach pain HPI Details 67-year-old female with past medical history depression, glaucoma, asthma, and impaired glucose tolerance last seen by TYRELL July 2023 coming in for hospital follow up.? In review of the notes, patient was seen in [facility] ED 11/02/2023 for sinus pain.? Viral swabs were negative patient was given Augmentin and prednisone and diagnosis sinusitis. Patient mentioned she finished taking her Augmentin and prednisone and is still continuing to have the facial pain. Patient states she has a history of trigeminal neuralgia and is on pregabalin when she mentions has not been working lately for her. She has tried to reach out to Neurology but was unable to get an appointment until December. She has been having facial pain, itchy eyes, itchy throat, and itchy ears without fever or cough. She has been taking Zyrtec for several years for her allergic symptoms. She also recently started brimonidine eye drops for glaucoma in her eye doctor did warned that it could cause increase in allergy symptoms. ON LICENSE OF [facility] Surgical History History of tonsillectomy Family History Father Cancer Multiple sclerosis Mother Cancer Leukemia Sister Multiple sclerosis Social History Housing: House Alcohol intake: never Patient Tobacco Use Status: Never used Tobacco e-Cigarette/Vaping Use: Never Used Second Hand Smoke Exposure: No service: No Current occupational status: retired Cognitive needs: No Hearing needs: No Vision needs: Yes (glasses) Questionnaire Thrive Questionnaire Date Thrive assessed: 06/26/23 AUDIT C Alcohol Use Questionnaire (AUDIT-C) 1. How often do you have a drink containing alcohol?: Never 3. How often do you have six or more drinks on one occasion?: Never Total Score: 0 ONI-7 AMB Questionnaire ONI-7 Date ONI - 7 assessed: 04/08/23 Source: Developed by Drs. Tomasz Ortega, Nerissa Navarro, Artemio Rosas and colleagues, with an educational magdiel from [employer]. Review of Systems Const Denies body aches, Denies chills, Denies fever(s), Denies headache(s) and Denies poor appetite Eyes Reports as per HPI ENT Details: Facial pain from left side bridge of nose to left ear Denies dysphagia, Denies dizziness and Denies headache(s) Card Denies chest pain, Denies syncope, Denies edema, Denies irregular heart rhythm, Denies lightheadedness and Denies dyspnea Resp Denies cough and Denies dyspnea GI Denies abdominal pain, Denies dysphagia and Reports nausea (With taking pregabalin) Reports no additional complaints Musc Reports no additional complaints and Denies abnormal gait Skin/Breast Reports system reviewed and no additional complaints, except as documented Neuro Denies abnormal gait, Denies dizziness, Denies syncope and Denies headache(s) Psych Reports no additional complaints Physical exam (Primary Care) Vital Signs: Last Vital Signs Pulse 84 11/13/23 09:28 BP 130/68 11/13/23 09:28 Pulse Ox 99 11/13/23 09:28 Oxygen Delivery Method Room Air 11/13/23 09:28 BMI result Body Mass Index 25.2 Tobacco/Smoking Status: Tobacco use Status Tobacco use date assessed 04/08/23 11/13/23 09:29 Patient Tobacco Use Status Never used Tobacco 11/13/23 09:29 e-Cigarette/Vaping Use Never Used 11/13/23 09:29 Thrive Assessment: Date of Thrive Assessment Date Thrive assessed 06/26/23 11/13/23 09:29 Const General: cooperative, healthy appearing, comfortable and no acute distress Orientation/consciousness: patient oriented x3 HENCT Head: Yes normocephalic Ears: hearing grossly normal bilaterally General nose exam: Normal external nose present Face and sinus: Yes sinuses nontender Mouth: oropharynx normal Eyes General: appearance normal, both eyes and all related structures Conjunctivae: conjunctivae normal Neck Neck: Yes full ROM and Yes no lymphadenopathy Resp Effort & Inspection: normal respiratory effort, able to speak in complete sentences and no cough Cardio Rate: regular rate Rhythm: regular rhythm Skin General skin exam: no rashes or lesions noted Neuro General: patient oriented x3 Gait exam (Neuro): Normal gait present Extrem General: Yes normal to inspection, Yes full ROM and No edema Psych Affect: normal affect Attitude: cooperative Insight: Good insight present (Psych) Judgement: Good judgement present (Psych) Assessment and Plan Assessment & Plan (1) Allergic rhinitis: Code(s): J30.9 - Allergic rhinitis, unspecified Plan: Patient has been taking Zyrtec ongoing for the past several years. Recommend switching antihistamines to Claritin for 1 month and then she may switch back to Zyrtec if she desires. Also recommend following up with her eye doctor regarding or eyedrops. (2) Trigeminal neuralgia: Code(s): G50.0 - Trigeminal neuralgia Plan: Her trigeminal neuralgia seems to be triggered by her more recent allergic symptoms. We will try to address the allergic symptoms to see if this improves her pain. Also recommend following up with Neurology for possible dose adjustment of pregabalin. Patient has exhausted all other medications for treatment of trigeminal neuralgia. Plan This note was constructed using voice recognition software. While every effort has been made to ensure accuracy and cut roll machine operator, still areas may have been included sometimes these areas may affect the content or meeting of the given symptoms. Total time spent caring for the patient today was 30 minutes. This includes time spent before the visit reviewing the chart, time spent during the visit, and time spent after the visit and documentation. Medications: New loratadine (Allergy Relief (loratadine)) 10 mg PO DAILY 30 tabs 0RF Changed From albuterol sulfate 90 mcg/actuation (ProAir HFA) 2 puffs inhalation Q4-6H 30 days PRN 6.7 grams 0RF bronchospasm To albuterol sulfate 90 mcg/actuation 2 puffs inhalation Q4-6H PRN 6.7 grams 0RF bronchospasm 30 days Coding Level of Care Code Est Pt Level 4 (22807) Diagnoses Allergic rhinitis J30.9 Trigeminal neuralgia G50.0
[2023-11-13 09:28] VITALS: BP 130/68; PULSE 84; O2SAT 99; BMI 25.2
== END 2023-11-13 10:26 | disposition home or self-care (01) ==
PROVIDERS: PCP Physician Assistant
DX: J30.9 Allergic rhinitis, unspecified (principal); G50.0 Trigeminal neuralgia
CPT/HCPCS: 99214

== ENCOUNTER 2023-12-13 13:33 | Outpatient (REF) | payer MEDICARE, SELFPAY ==
--- NOTE | ~2023-12-13 | MR_ITS ---
EXAMINATION: MR BRAIN WITHOUT AND WITH CONTRAST CLINICAL INFORMATION: Left facial pain; headaches, trigeminal neuralgia; 68-year-old female. COMPARISON: Correlation made with MR brain 01/30/2022, 04/24/2019. TECHNIQUE: Multiplanar, multisequence MRI of the brain was obtained before and after the intravenous administration of 7 mL Gadavist. Exam was performed on a 1.5 Alejandra Siemens magnet. Standard sequences utilized. Thin section axial and coronal T2 and postcontrast T1 sequences were performed through the skull base to include the 5th nerves. FINDINGS: -There is no diffusion restriction. -There is no intracranial hemorrhage, acute infarction, mass effect, or edema. -Ventricles, sulci, and cisterns are normal in size and configuration for patient age. No shift of midline. Basal cisterns are patent. -There are moderate punctate and minimally confluent foci of white matter T2 hyperintensity in the periventricular, subcortical, and hemispheric deep white matter, nonspecific, but most likely sequela of microvascular ischemia. This appears minimally progressed from 2001, however the increase in spatial resolution image quality from this new magnet could also contribute to the appearance. -Midline structures appear normally formed. The pituitary gland is normal. -Posterior fossa structures appear normal. Cerebellar tonsils are appropriately located. -Major flow voids are preserved within the skull base. -After contrast administration, there is no abnormal intra or extra-axial contrast enhancement. -The cisternal and cavernous 5th cranial nerves are normal in caliber and course. Normal CSF signal in Meckel's caves. No abnormal enhancement. -No vascular abutment. -Other major cranial nerves are normal in caliber and course. 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 There are bilateral lens replacements. -Paranasal sinuses demonstrate scattered moderate mucosal thickening and fluid throughout the ethmoid sinuses, and posterior sphenoid sinuses. Mild mucosal thickening is seen throughout the frontal sinuses and bilateral maxillary sinuses. No air-fluid levels present. -The mastoids and tympanic cavities are normally aerated. -Extracranial soft tissues demonstrate no abnormalities. The tongue is normal in signal and enhancement allowing for right-sided susceptibility artifact from dental amalgam. -No suspicious bone marrow signal changes are evident. -Moderate to severe arthritis noted in the left TM joint. -Mild arthritis noted in the right TM joint. -Atlantoaxial joint demonstrates mild to moderate degenerative arthrosis. MR/MR head/brain wo/w con IMPRESSION: 1. No evidence of intracranial hemorrhage, acute infarction, mass effect, edema, or abnormal enhancement. 2. Moderate changes of small vessel ischemia, minimally progressed although unknown if this is true progression or represents improvement of image quality from updated MRI unit. 3. Cranial nerves V are normal in course and caliber. Meckel's caves are normal in signal. No abnormal enhancement. No changes. 4. 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 5. Moderate chronic pansinus disease without evidence of definite acute disease. 6. See the body of the report for details. Electronically signed by: Leland Abdul MD 12/27/2023 04:16 PM EDT
[2023-12-13] MEDS: gadobutroL 7.5 ML VIAL IVPUSH (14:22)
== END 2023-12-13 13:34 | disposition home or self-care (01) ==
LOC: HO.MRI 13:33
PROVIDERS: PCP Physician Assistant; Visit Provider Nurse Practitioner Family
DX: R51.9 Headache, unspecified (principal); G50.0 Trigeminal neuralgia
CPT/HCPCS: 70553; A9585

== ENCOUNTER → 2023-12-13 13:55 | Outpatient (BNV) | payer MEDICARE, SELFPAY | PROVIDERS: PCP Physician Assistant; Visit Provider Radiology Diagnostic Radiology | DX: R51.9 Headache, unspecified (principal) | CPT/HCPCS: 70553 ==

== ENCOUNTER 2024-01-02 14:15 | Outpatient (AMB) | payer MEDICARE, SELFPAY ==
--- NOTE | 2024-01-02 14:29 | A.OFFVIS_ITS ---
Vital Signs 01/02/24 14:30 Height 5 ft 6 in Weight 163 lb BMI 26.3 BP 128/78 Blood Pressure Location Rt brachial Position Sitting Pulse 83 Pulse Source Pulse Oximeter Pulse Oximetry (%) 96 Oxygen Delivery Method Room Air Intake Visit Reasons: Follow up Intake Note: Patient presents for follow up Allergies carbamazepine Allergy (Severe, Verified 01/02/24 14:32) Itchyness, rash all over body oxcarbazepine Allergy (Severe, Verified 01/02/24 14:32) Hives Iodinated Contrast Media [IODINATED CONTRAST MEDIA - IV DYE] Allergy (Intermedi ate, Verified 01/02/24 14:32) RASH, LIPS SWELLING peach [PEACH] Allergy (Mild, Verified 01/02/24 14:32) RASH.ITCHY pear [PEAR] Allergy (Mild, Verified 01/02/24 14:32) RASH, ITCHY strawberry [STRAWBERRY] Allergy (Mild, Verified 01/02/24 14:32) RASH, ITCHY Egg Derived [EGG DERIVED] Allergy (Unknown, Verified 01/02/24 14:32) UNKNOWN Medication List - Last Reconciled 01/02/24 by REGGIE Mccann albuterol sulfate 90 mcg/actuation 2 puffs inhalation Q4-6H PRN 30 days brimonidine 0.2% drps ophthalmic (eye) calcium carbonate-vitamin D3 500 mg-10 mcg (400 unit) (Oyster Shell Calcium- Vitamin D3) 1 tab PO BID 90 days dorzolamide-timolol (PF) 2-0.5 % 1 drp ophthalmic (eye) BID esomeprazole magnesium (Nexium) 40 mg PO DAILY fluticasone propionate 50 mcg/actuation 1 spray intranasal DAILY 30 days latanoprost 0.005% 1 drp ophthalmic (eye) DAILY loratadine (Allergy Relief (loratadine)) 10 mg PO DAILY magnesium oxide 400 mg PO DAILY 30 days netarsudil 0.02% 1 drp ophthalmic-Left QPM pregabalin (Lyrica) 75 mg PO BID 90 days pyridoxine (vitamin B6) 50 mg PO DAILY HPI Comments Details: 68-yr-old female presents for f/u visit of left facial pain. Pt was previously seen by our former colleague, Caitlin Mendoza NP. Pt's dtr joins via phone call. Pt had called over the summer, reporting increased left facial pain in Oct. She had ER wval and was given a course of ABT for sinusitis. At that time, pt was advised to have f/u brain MRI, which was completed last week: MR/MR head/brain wo/w con IMPRESSION: 1. No evidence of intracranial hemorrhage, acute infarction, mass effect, edema, or abnormal enhancement. 2. Moderate changes of small vessel ischemia, minimally progressed although unknown if this is true progression or represents improvement of image quality from updated MRI unit. 3. Cranial nerves V are normal in course and caliber. Meckel's caves are normal in signal. No abnormal enhancement. No changes. 4. 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 5. Moderate chronic pansinus disease without evidence of definite acute disease. Reviewed pt's history of Left facial pain, which started in 2015. She initially thought was dental pain. The pain was always in the left upper and lower jaw as intense brief pain attacks lasting seconds. This can be triggered by light mechanical stimuli, chewing. Since June, she now has similar pain attacks when she has the left facial attacks, that start in the left side of the nose and moves down into left upper lip and into the left jaw. This can also be triggered by light mechanical stimuli, chewing. In the past months, she has been having an attack every 10-15 minutes. But in the past few days, she has had 3 attacks per day- say when brushing her teeth. She is not exactly sure what prompted the improvement, other than that she takingthe course of ABT in early Oct. She also started accupuncture tx 4 weeks ago- to tx sinus s/s. The only time she reports relief is when sleeping. She is currently taking pregabalin 75mg bid- this is helping to dull the pain, but sometimes causes dizziness, drowsiness, loose stools. She does have a chronic hoarse voice, which she attributes to post nasal drip. She does have some acid reflux- not daily. Denies h/o asthma, She does take flonase but not always consistently. And has recently switched from claritin to zyrtec. She is scheduled to see ENT in May 2024. She has not seen her previous ENT, who was giving her allergy shots in a few years. The allergy shots helped the chronic post-nasal drip and voice, but the facial pain. In the past, she has tried: gabapentin - lost effectiveness oxcarbazepine/carbamazepine - allergic Pt does not recall ever trying lamotrigine. PFSH Surgical History History of tonsillectomy Family History Father Cancer Multiple sclerosis Mother Cancer Leukemia Sister Multiple sclerosis Social History Housing: House Alcohol intake: never Patient Tobacco Use Status: Never used Tobacco e-Cigarette/Vaping Use: Never Used Second Hand Smoke Exposure: No service: No Current occupational status: retired Cognitive needs: No Hearing needs: No Vision needs: Yes (glasses) Physical Exam Vital Signs: Last Vital Signs Pulse 83 01/02/24 14:30 BP 128/78 01/02/24 14:30 Pulse Ox 96 01/02/24 14:30 Oxygen Delivery Method Room Air 01/02/24 14:30 BMI result Body Mass Index 26.3 Const General: cooperative and no acute distress Orientation/consciousness: patient oriented x3 HEENT Other: Bilateral nares- erythema Resp Effort & Inspection: normal respiratory effort and able to speak in complete sentences Auscultation: clear to auscultation bilaterally Cardio Rate: regular rate Rhythm: regular rhythm Neuro Other: Mild left lower facial assymetry Signs of lower teeth wearing General: patient oriented x3 Cognition (Neuro): normal cognition Psych Appearance: grossly normal Mental Status: mental status grossly normal Speech and movement: Normal speech and movement present Affect: normal affect Attitude: cooperative Assessment & Plan Assessment & Plan (1) Trigeminal neuralgia: Code(s): G50.0 - Trigeminal neuralgia Category: Medical (2) Chronic sinusitis: Code(s): J32.9 - Chronic sinusitis, unspecified Category: Medical (3) Food allergy: Code(s): Z91.018 - Allergy to other foods Category: Medical (4) Environmental allergies: Code(s): Z91.09 - Other allergy status, other than to drugs and biological substances Category: Medical (5) TMJ arthritis: Comment: L > R Code(s): M26.649 - Arthritis of unspecified temporomandibular joint Category: Medical Plan As her TN s/s worsen when pt has increased sinusitis s/s and MRI shows chronic pansinus inflammation, Advised to take Flonase consistently Add Azelastine 137mg nasal spray 1-2 sprays into each nostril qd-bid- advsied on proper technique. Continue Pregabalin 75mg bid. Trial indomethacin 25mg cap- taken w/ food tid prn. Will request allergy consult. For moderate changes of small vessel ischemia: BP normotensive. Last HgA1C 6%. Pt advised to continue to optimize CV and metabolic control, and to engage in regular physical, social, and cognitively stimulating activities. Will follow-up in 1-2 months to review response to above plan and patient to follow-up in clinic in 6 months or sooner prn. Orders: Referrals Allergy & Immunology Referral J32.9 - Chronic sinusitis, unspecified, Z91.018 - Allergy to other foods, Z91.09 - Other allergy status, other than to drugs and biological substances Medications: New azelastine administer into each nostril 2 sprays intranasal BID 30 mL 6RF 30 days indomethacin administer with food or milk 25 mg PO TID PRN 90 caps 1RF left facial pain 30 days Refilled pregabalin (Lyrica) 75 mg PO BID 180 caps 0RF 90 days Coding Level of Care Code Est Pt Level 4 (87592) Diagnoses Trigeminal neuralgia G50.0 Chronic sinusitis J32.9 Food allergy Z91.018 Environmental allergies Z91.09 TMJ arthritis M26.649
[2024-01-02 14:30] VITALS: BP 128/78; PULSE 83; O2SAT 96; BMI 26.3
== END 2024-01-02 15:35 | disposition home or self-care (01) ==
PROVIDERS: PCP Physician Assistant; Visit Provider Nurse Practitioner Family
DX: G50.0 Trigeminal neuralgia (principal); J32.9 Chronic sinusitis, unspecified; Z91.018 Allergy to other foods; Z91.09 Other allergy status, other than to drugs and biological substances; M26.649 Arthritis of unspecified temporomandibular joint
CPT/HCPCS: 99214

== ENCOUNTER → 2024-01-02 14:15 | Outpatient (BNVA) | payer MEDICARE, SELFPAY | PROVIDERS: PCP Physician Assistant; Visit Provider Nurse Practitioner Family | DX: G50.0 Trigeminal neuralgia (principal); J32.9 Chronic sinusitis, unspecified; Z91.018 Allergy to other foods; Z91.09 Other allergy status, other than to drugs and biological substances; M26.649 Arthritis of unspecified temporomandibular joint | CPT/HCPCS: 99212 ==

== ENCOUNTER 2024-01-30 13:48 | Outpatient (AMB) | payer MEDICARE, SELFPAY ==
--- NOTE | 2024-01-30 13:52 | MHC.PC.OV ---
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 Accompanied by: Self / Same As Patient Allergies carbamazepine Allergy (Severe, Verified 01/30/24 14:02) Itchyness, rash all over body oxcarbazepine Allergy (Severe, Verified 01/30/24 14:02) Hives Iodinated Contrast Media [IODINATED CONTRAST MEDIA - IV DYE] Allergy (Intermediate, Verified 01/30/24 14:02) RASH, LIPS SWELLING peach [PEACH] Allergy (Mild, Verified 01/30/24 14:02) RASH.ITCHY pear [PEAR] Allergy (Mild, Verified 01/30/24 14:02) RASH, ITCHY strawberry [STRAWBERRY] Allergy (Mild, Verified 01/30/24 14:02) RASH, ITCHY Egg Derived [EGG DERIVED] Allergy (Unknown, Verified 01/30/24 14:02) UNKNOWN Medication List - Last Reconciled 01/30/24 by Ray Mak PA-C albuterol sulfate 90 mcg/actuation 2 puffs inhalation Q4-6H PRN 30 days azelastine 2 sprays intranasal BID 30 days brimonidine 0.2% drps ophthalmic (eye) calcium carbonate-vitamin D3 500 mg-10 mcg (400 unit) (Oyster Shell Calcium-Vitamin D3) 1 tab PO BID 90 days dorzolamide-timolol (PF) 2-0.5 % 1 drp ophthalmic (eye) BID esomeprazole magnesium (Nexium) 40 mg PO DAILY fluticasone propionate 50 mcg/actuation 1 spray intranasal DAILY 30 days indomethacin 25 mg PO TID PRN 30 days latanoprost 0.005% 1 drp ophthalmic (eye) DAILY loratadine (Allergy Relief (loratadine)) 10 mg PO DAILY magnesium oxide 400 mg PO DAILY 30 days netarsudil 0.02% 1 drp ophthalmic-Left QPM pregabalin (Lyrica) 75 mg PO BID 90 days pyridoxine (vitamin B6) 50 mg PO DAILY Tobacco use date assessed: 04/08/23 Fall risk assessment: No Falls in past year Last assessed Fall Risk: 01/30/24 Dental Screening Dental Screen Date: 04/08/23 HPI f/u TM/ labs HPI Details Patient is a 68-year-old female here today for a follow-up visit.? Patient has a past history significant for major depressive disorder, trigeminal neuralgia. Concern--> continues to daily fatigue, all labs recently done within normal range. Etiology unclear of her chronic fatigue.--> Suspecting a side effect of medication. Also Recently has been suffering with more more sinus congestion- most recent head imaging showing ethmoid and frontal sinus congestion. Trigeminal neuralgia : Interval history-->? Has discontinued use of gabapentin.?Has trialed Oxycarbamazapine. .? She does have GI side effects from time to time from gabapentin use. Has seen [facility] neurologist for 2nd opinion on her trigeminal neuralgia. Has followed up with local neurologist and has gotten had MRA and MRI with chronic ischemic changes.? Now continues on Lyrica 75 mg with decent relief of her trigeminal neuralgia pain. .. Osteopenia:? Most recently had a bone density screening showing osteopenia [facility] Surgical History History of tonsillectomy Family History Father Cancer Multiple sclerosis Mother Cancer Leukemia Sister Multiple sclerosis Social History Housing: House Alcohol intake: never Patient Tobacco Use Status: Never used Tobacco e-Cigarette/Vaping Use: Never Used Second Hand Smoke Exposure: No service: No Current occupational status: retired Cognitive needs: No Hearing needs: No Vision needs: Yes (glasses) Questionnaire Thrive Questionnaire Date Thrive assessed: 06/26/23 ONI-7 AMB Questionnaire ONI-7 Date ONI - 7 assessed: 04/08/23 Source: Developed by Drs. Tomasz Ortega, Nerissa Navarro, Artemio Rosas and colleagues, with an educational magdeil from [employer]. Review of Systems Const Denies headache(s) Eyes Denies loss of vision ENT Denies vertigo, Denies dizziness, Denies headache(s) and Denies sore throat Card Denies chest pain, Denies leg edema and Denies lightheadedness Resp Denies cough, Denies hemoptysis and Denies wheezing GI Denies abdominal pain, Denies melena, Denies constipation, Denies diarrhea and Denies vomiting Denies urinary frequency, Denies dysuria and Denies urinary urgency Musc Denies arthralgias, Denies joint swelling, Denies numbness and Denies tingling Neuro Denies Abnormal speech present, Denies behavioral changes, Denies vertigo, Denies dizziness, Denies headache(s), Denies loss of vision, Denies memory loss, Denies numbness and Denies tingling Psych Denies anxiety, Denies behavioral changes, Denies depression, Denies memory loss and Denies panic attacks Yadiel/Lymph Denies easy bleeding and Denies easy bruising Aller/Immun Denies wheezing Physical exam (Primary Care) Vital Signs: Last Vital Signs Pulse 80 01/30/24 13:53 BP 120/60 01/30/24 13:53 Pulse Ox 96 01/30/24 13:53 Oxygen Delivery Method Room Air 01/30/24 13:53 BMI result Body Mass Index 26.8 Tobacco/Smoking Status: Tobacco use Status Tobacco use date assessed 04/08/23 01/30/24 13:53 Patient Tobacco Use Status Never used Tobacco 01/30/24 13:53 e-Cigarette/Vaping Use Never Used 01/30/24 13:53 Thrive Assessment: Date of Thrive Assessment Date Thrive assessed 06/26/23 01/30/24 13:53 Const General: healthy appearing, no acute distress, alert and awake Nutritional Appearance: well nourished Orientation/consciousness: oriented to person, oriented to place and oriented to time HENMT Ears: TM's normal bilaterally General nose exam: Normal nasal mucous membranes and turbinates present Eyes Conjunctivae: conjunctivae normal Sclerae: sclerae normal Pupils: Equal, round and reactive pupils present Neck Neck: Yes no lymphadenopathy and Yes no JVD Thyroid: Thyroid normal Carotids: no bruits Resp Effort & Inspection: normal respiratory effort and not tachypneic Auscultation: no crackles, no rales, no rhonchi and no wheezes Cardio Rate: regular rate Rhythm: regular rhythm Heart sounds: no murmurs and normal S1 and S2 GI Palpation (GI): Soft to palpation, nontender, no hepatomegaly and no splenomegaly Auscultation: normal bowel sounds Skin General skin exam: no rashes or lesions noted and dry skin Neuro General: oriented to person, oriented to place and oriented to time Cranial nerves: Yes Equal, round and reactive pupils present Speech: No Abnormal speech present Gait exam (Neuro): Normal gait present Motor exam (neuro): no tremor noted Extrem Right upper extremity: full ROM Left upper extremity: full ROM Right lower extremity: full ROM; no edema Left lower extremity: full ROM; no edema Psych Mental Status: mental status grossly normal Speech and movement: Normal speech and movement present Affect: normal affect Attitude: cooperative Thought process: Normal thought process present Office Procedures Flu Questionnaire Does the patient have a severe egg allergy?: No Immunizations Fluarix Triv [id number] (PF) 45 mcg (15 mcg x 3)/0.5 mL IM syringe Performing Provider: Ray Mak PA-C [facility] [place] [facility] Documented (not given) by: YOGI Guzmán on 01/30/24 14:01 Reason Not Given: Received Previously Coding Level of Care Code Est Pt Level 4 (02561) Diagnoses Trigeminal neuralgia G50.0 Borderline high cholesterol E78.9 Chronic pansinusitis J32.4 Chronicity: chronic Sinusitis location: pansinusitis Assessment & Plan Assessment & Plan (1) Trigeminal neuralgia: Code(s): G50.0 - Trigeminal neuralgia Category: Medical Plan: As per HPI patient continues with the use of pregabalin which is the only effective med thus far for her facial pain. Still does have breakthrough facial pain at times. (2) Borderline high cholesterol: Code(s): E78.9 - Disorder of lipoprotein metabolism, unspecified Category: Medical Plan: Most recent lipid panel showing borderline high total cholesterol. She will continue working on dietary and lifestyle modifications to reduce her cholesterol. (3) Sinusitis: Code(s): J32.9 - Chronic sinusitis, unspecified Category: Medical Qualifiers: Chronicity: chronic Sinusitis location: pansinusitis Qualified Code(s): J32.4 - Chronic pansinusitis Plan: As per HPI patient continues to have sinus congestion. Most recent imaging of her head did show moderate to severe ethmoid sinus congestion. She has been referred to inside sales account representative. She has continued loratadine though has not been too effective. She would like to try montelukast to help her with possible allergy causing her sinusitis Orders: Orders Influenza [id number] Immunization 01/30/24 Z23 - Encounter for immunization Medications: New montelukast (Singulair) 10 mg PO BEDTIME 30 tabs 1RF 30 days J32.4 - Chronic pansinusitis
[2024-01-30 13:53] VITALS: BP 120/60; PULSE 80; O2SAT 96; BMI 26.8
== END 2024-01-30 14:33 | disposition home or self-care (01) ==
LOC: HO.HMCH 13:49
PROVIDERS: PCP Physician Assistant; Visit Provider Physician Assistant
DX: G50.0 Trigeminal neuralgia (principal); E78.9 Disorder of lipoprotein metabolism, unspecified; J32.4 Chronic pansinusitis

== ENCOUNTER → 2024-01-30 13:48 | Outpatient (BNVA) | payer MEDICARE, SELFPAY | PROVIDERS: PCP Physician Assistant; Visit Provider Physician Assistant | DX: G50.0 Trigeminal neuralgia (principal); E78.9 Disorder of lipoprotein metabolism, unspecified; J32.4 Chronic pansinusitis | CPT/HCPCS: 90471; 99212 ==

== ENCOUNTER 2024-04-16 09:16 | Emergency (ER) | payer MEDICARE, SELFPAY ==
[2024-04-16 09:22] VITALS: BP 148/83; PULSE 82; RESP 18; TEMP 37; O2SAT 100; BMI 26.1
[2024-04-16 10:42] LABS: MANUAL DIFF FLAG NO
[2024-04-16 10:44] LABS: Basophils Percent Auto 0.6 % (0-2); Eosinophils Absolute Auto 0.3 X10*3/uL (0.0-0.4); Hematocrit 40.9 % (37.0-47.0); Imm Gran Abs Auto 0.02 X10*3/uL (0.00-0.03); Imm Gran Pct Auto 0.3 % (0.0-0.4); Lymphocytes Absolute Auto 1.8 X10*3/uL (1.2-4.9); Lymphocytes Percent Auto 27.2 % (20-40); Mean Corpuscular HGB Conc 31.8 g/dl (31.0-35.0); Mean Corpuscular Hemoglobin 27.4 pg (27.0-33.0); Mean Corpuscular Volume 86.1 fL (80.0-98.0); Mean Platelet Volume 9.3 fL (9.4-12.3); Monocytes Absolute Auto 0.5 X10*3/uL (0.1-1.2); Monocytes Percent Auto 7.1 % (2-11); Neutrophils Absolute Auto 3.9 x10*3/uL (2.0-8.3); Neutrophils Percent Auto 59.8 % (45-73); Platelet Count 287 X10*3/uL (160-400); Red Blood Count 4.75 X10*6/uL (4.20-5.50); Red Cell Distribution Width 13.2 % (11.0-16.0); White Blood Count 6.6 X10*3/uL (4.8-10.8)
[2024-04-16 10:59] VITALS: BP 155/83; PULSE 73; RESP 14; TEMP 37; O2SAT 97
[2024-04-16 11:01] LABS: Alanine Aminotransferase 23 U/L (0-31); Albumin Level 4.1 g/dL (3.5-5.0); Alkaline Phosphatase 101 U/L (39-117); Anion Gap 10 (12-20); Aspartate Amino Transferase 26 U/L (5-31); Bilirubin Direct 0.1 mg/dL (0.0-0.5); Bilirubin Total 0.4 mg/dL (0.0-1.0); Blood Urea Nitrogen 10 mg/dL (9-16); Calcium 9.1 mg/dL (8.4-10.2); Carbon Dioxide 25 mmol/L (22-29); Chloride 110 mmol/L (96-108); Creatinine Clr Calc Pharmacy 71.7; Estimated Glomerular Filt Rate > 60; Glucose Random 109 mg/dL (60-115); Lipase 16 U/L (8-78); Potassium 4.4 mmol/L (3.3-5.1); Sodium 141 mmol/L (135-145); Total Protein 7.6 g/dL (6.5-8.0)
[2024-04-16 11:35] LABS: Influenza A PCR NEGATIVE (Negative); Influenza B PCR NEGATIVE (Negative); Resp Syncy Virus RNA Qual PCR NEGATIVE (Negative); SARS COV2 PCR INHOUSE NEGATIVE (Negative)
--- NOTE | 2024-04-16 11:35 | ED_ITS ---
HPI - General Adult General Chief complaint: Nausea/Vomiting/Diarrhea Stated complaint: Headache, abd pain Time Seen by Provider: 04/16/24 11:05 Source: patient, RN notes reviewed and old records reviewed Mode of arrival: ambulatory Limitations: no limitations History of Present Illness ED Provider: Romel TOMLINSON narrative: 68-year-old female with a past medical history significant for trigeminal hyperlipidemia, depression presents for evaluation of multiple complaints. She reports nausea vomiting, diarrhea and headache. The symptoms started this past Saturday, 4 days ago. She has mild lower abdominal pain. She has not been able to eat in the last 2 days due to the vomiting She reports she generally has pain related to trigeminal neuralgia on the left side of her face but complains of a right-sided headache today. She is not any anticoagulation. Denies hitting head or losing consciousness No other complaints or concerns at this time Related Data Home Medications ?Medication ?Instructions ?Recorded ?Confirmed dorzolamide-timolol (PF) 2 %-0.5 % 1 drp ophthalmic (eye) BID 12/30/19 01/30/24 eye drops in a dropperette latanoprost 0.005 % eye drops 1 drp ophthalmic (eye) DAILY 12/30/19 01/30/24 esomeprazole magnesium 40 mg 40 mg PO DAILY 11/01/22 01/30/24 capsule,delayed release (Nexium) netarsudil 0.02 % eye drops 1 drp ophthalmic-Left QPM 06/26/23 01/30/24 brimonidine 0.2 % eye drops drp ophthalmic (eye) 11/13/23 01/30/24 Previous Rx's ?Medication ?Instructions ?Recorded calcium 500 mg (as 1 tab PO BID 90 days #180 tabs 04/08/23 carbonate)-vitamin D3 10 mcg (400 unit) tablet (Oyster Shell Calcium-Vitamin D3) fluticasone propionate 50 1 spray intranasal DAILY 30 days 06/23/23 mcg/actuation nasal #16 grams spray,suspension pyridoxine (vitamin B6) 50 mg 50 mg PO DAILY #90 tabs 06/23/23 tablet loratadine 10 mg tablet (Allergy 10 mg PO DAILY #30 tabs 11/13/23 Relief (loratadine)) albuterol sulfate 90 mcg/actuation 2 puff inhalation Q4-6H PRN 12/10/23 aerosol inhaler bronchospasm 30 days #6.7 grams azelastine 137 mcg (0.1 %) nasal 2 spray intranasal BID 30 days #30 01/02/24 spray mL magnesium oxide 400 mg PO DAILY 30 days #30 tabs 01/08/24 indomethacin 25 mg capsule 25 mg PO TID PRN left facial pain 02/28/24 30 days #90 caps montelukast 10 mg tablet 10 mg PO BEDTIME 30 days #30 tabs 03/31/24 (Singulair) pregabalin 75 mg capsule (Lyrica) 75 mg PO BID 90 days #180 caps 04/10/24 ondansetron 4 mg disintegrating 4 mg PO Q8H PRN nausea and 04/16/24 tablet vomiting #20 tabs Allergies Allergy/AdvReac Type Severity Reaction Status Date / Time carbamazepine Allergy Severe Itchyness, Verified 04/16/24 09:27 rash all over body oxcarbazepine Allergy Severe Hives Verified 04/16/24 09:27 Iodinated Contrast Media Allergy Intermediate RASH, LIPS Verified 04/16/24 09:27 [IODINATED CONTRAST MEDIA - SWELLING IV DYE] peach [PEACH] Allergy Mild RASH.ITCHY Verified 04/16/24 09:27 pear [PEAR] Allergy Mild RASH, ITCHY Verified 04/16/24 09:27 strawberry [STRAWBERRY] Allergy Mild RASH, ITCHY Verified 04/16/24 09:27 Egg Derived [EGG DERIVED] Allergy Unknown UNKNOWN Verified 04/16/24 09:27 Review of Systems 2 Constitutional: Constitutional: Reports body ache(s), Reports chills, Denies fever(s) and Reports headache(s) Eyes: Eyes: Denies blurry vision ENT: Reports headache(s) and Denies sore throat Cardiovascular: Cardiovascular: Denies chest pain and Denies dyspnea Respiratory: Respiratory: Reports cough and Denies dyspnea Gastrointestinal: Gastrointestinal: Reports abdominal pain, Reports nausea and Reports vomiting Musculoskeletal: Musculoskeletal: Denies back pain Integumentary/Breasts: Skin/Breast: Denies rash Neurologic: Reports headache(s) Psychiatric: Psychiatric: Denies anxiety [facility] Past Medical History Surgical History History of tonsillectomy Family History Family History Father Cancer Multiple sclerosis Mother Cancer Leukemia Sister Multiple sclerosis Social History Social History Housing: House Unable to assess alcohol history related to: Unknown Alcohol intake: never Patient Tobacco Use Status: Never used Tobacco Smoked in Last 30 Days: No e-Cigarette/Vaping Use: Never Used Second Hand Smoke Exposure: No Use of substances other than those prescribed or required for medical reasons: Unknown Advance Directives: No Advance Directives Information Provided: Yes service: No Current occupational status: retired Cognitive needs: No Hearing needs: No Vision needs: Yes (glasses) Physical Exam ED Vital Signs: Vital Signs - 24 hr 04/16/24 09:22 04/16/24 10:59 04/16/24 13:53 Temperature 98.6 F 98.6 F 98 F Pulse Rate 82 73 70 Respiratory Rate 18 14 18 Blood Pressure 148/83 H 155/83 H 151/79 H Pulse Oximetry 100 97 100 Oxygen Delivery Method Room Air Room Air Room Air BMI result Body Mass Index 26.1 Const General: healthy appearing, comfortable, no acute distress, alert and awake Nutritional Appearance: well nourished Orientation/consciousness: patient oriented x3 HENMT Head: Yes normocephalic and Yes atraumatic Eyes Eyelids: Yes eyelids normal Conjunctivae: conjunctivae normal Sclerae: sclerae normal Corneas: corneas normal Pupils: Equal, round and reactive pupils present EOM: EOMs intact bilaterally Neck Neck: Yes full ROM Resp Effort & Inspection: normal respiratory effort, able to speak in complete sentences and not labored GI Inspection: No distended Palpation (GI): Soft to palpation, not firm, nontender, no guarding and not rigid Skin General skin exam: elasticity normal Neuro General: patient oriented x3 Cranial nerves: Yes Equal, round and reactive pupils present and Yes Bilaterally intact EOM present Cognition (Neuro): normal cognition Extrem Other: Moving all extremities well without any obvious deformities Course Reevaluation(s) Reevaluation #1: Patient reports feeling better after treatment, she is stable for discharge. We will send the patient home with ondansetron. Return precautions were discussed Time: 14:34 Medications Administered Discontinued Medications Generic Name Dose Route Start Last Admin Trade Name Freq PRN Reason Stop Dose Admin Sodium Chloride 500 mls @ 999 mls/hr 04/16/24 11:30 04/16/24 12:16 Ns IV 04/16/24 12:00 Infused .Q31M FUAD Infusion Ketorolac Tromethamine 15 mg 04/16/24 11:30 04/16/24 11:43 Ketorolac Tromethamine 15 Mg/Ml Vial IVPUSH 04/16/24 11:31 15 mg ONCE ONE Administration Ondansetron HCl 4 mg 04/16/24 11:30 04/16/24 11:43 Ondansetron Hcl 4 Mg/2 Ml Vial IVPUSH 04/16/24 11:31 4 mg ONCE ONE Administration Medical Decision Making Medical Decision Making [facility] Narrative: 68-year-old healthy female presents for evaluation of flu-like symptoms. She has a reassuring exam, stable vital signs. Labs are without leukocytosis. Her symptoms are likely viral in origin. Viral swabs are still pending. She has had abdominal pain with vomiting for the last 4 days, appendicitis is less likely as she has been fever or white count her pain is mostly left-sided, no right lower quadrant tenderness. Diverticulitis is also less likely given the week of fever or white count Differential Diagnosis Differential Diagnoses: The differential diagnosis associated with the presentation includes Abdominal pain Viral syndrome Norovirus Influenza Lab Data [facility] Lab Attestation statement: I reviewed the patient's lab results. No leukocytosis or anemia. Normal platelet count. No significant electrolyte abnormalities. 04/16/24 10:36 04/16/24 10:36 Labs: Lab Results 04/16/24 Range/Units 10:36 WBC 6.6 (4.8-10.8) X10*3/uL RBC 4.75 (4.20-5.50) X10*6/uL Hgb 13.0 (12.0-16.0) g/dl Hct 40.9 (37.0-47.0) % MCV 86.1 (80.0-98.0) fL MCH 27.4 (27.0-33.0) pg MCHC 31.8 (31.0-35.0) g/dl RDW 13.2 (11.0-16.0) % Plt Count 287 (160-400) X10*3/uL MPV 9.3 L (9.4-12.3) fL Immature Gran % (Auto) 0.3 (0.0-0.4) % Neut % (Auto) 59.8 (45-73) % Lymph % (Auto) 27.2 (20-40) % Appling % (Auto) 7.1 (2-11) % Eos % (Auto) 5.0 H (0-4) % Baso % (Auto) 0.6 (0-2) % Lymph # (Auto) 1.8 (1.2-4.9) X10*3/uL Appling # (Auto) 0.5 (0.1-1.2) X10*3/uL Eos # (Auto) 0.3 (0.0-0.4) X10*3/uL Baso # (Auto) 0.0 (0.0-0.2) X10*3/uL Abs Immat Gran (auto) 0.02 (0.00-0.03) X10*3/uL Absolute Neuts (auto) 3.9 (2.0-8.3) x10*3/uL Absolute Nucleated RBC 0.000 (0.0-0.012) X10*3/uL Nucleated RBC % (auto) 0.0 (0.0-0.2) /100WBC Sodium 141 (135-145) mmol/L Potassium 4.4 (3.3-5.1) mmol/L Chloride 110 H (96-108) mmol/L Carbon Dioxide 25 (22-29) mmol/L Anion Gap 10 L (12-20) BUN 10 (9-16) mg/dL Creatinine 0.77 (0.5-1.4) mg/dL Estim Creat Clear Calc 71.7 Estimated GFR > 60 Random Glucose 109 (60-115) mg/dL Calcium 9.1 (8.4-10.2) mg/dL Total Bilirubin 0.4 (0.0-1.0) mg/dL Direct Bilirubin 0.1 (0.0-0.5) mg/dL AST 26 (5-31) U/L ALT 23 (0-31) U/L Alkaline Phosphatase 101 (39-117) U/L Total Protein 7.6 (6.5-8.0) g/dL Albumin 4.1 (3.5-5.0) g/dL Lipase 16 (8-78) U/L Influenza Type A (PCR) NEGATIVE (Negative) Influenza Type B (PCR) NEGATIVE (Negative) RSV RNA Qual (PCR) NEGATIVE (Negative) SARS-CoV-2 RNA (RT-PCR) NEGATIVE (Negative) Discharge Plan Discharge Clinical Impression: Vomiting Patient Disposition: Home, Self-Care Instructions: Acute Nausea and Vomiting (ED) Additional Instructions: Your workup in the ER today was reassuring. Your symptoms are likely related to a virus. Use Zofran as needed for nausea and vomiting Hydrate well Prescriptions: New ondansetron 4 mg tablet,disintegrating 4 mg PO Q8H PRN (Reason: nausea and vomiting) Qty: 20 0RF No Action pyridoxine (vitamin B6) 50 mg tablet 50 mg PO DAILY Qty: 90 1RF fluticasone propionate 50 mcg/actuation spray,suspension 1 spray intranasal DAILY 30 Days Qty: 16 6RF Rx Instructions: administer into each nostril albuterol sulfate 90 mcg/actuation HFA aerosol inhaler 2 puff inhalation Q4-6H PRN (Reason: bronchospasm) 30 Days Qty: 6.7 0RF magnesium oxide 400 mg magnesium tablet 400 mg PO DAILY 30 Days Qty: 30 6RF indomethacin 25 mg capsule 25 mg PO TID PRN (Reason: left facial pain) 30 Days Qty: 90 1RF Rx Instructions: administer with food or milk montelukast [Singulair] 10 mg tablet 10 mg PO BEDTIME 30 Days Qty: 30 1RF pregabalin [Lyrica] 75 mg capsule 75 mg PO BID 90 Days Qty: 180 3RF dorzolamide-timolol (PF) 2-0.5 % dropperette 1 drp ophthalmic (eye) BID latanoprost 0.005 % drops 1 drp ophthalmic (eye) DAILY netarsudil 0.02 % drops 1 drp ophthalmic-Left QPM brimonidine 0.2 % drops ophthalmic (eye) loratadine [Allergy Relief (loratadine)] 10 mg tablet 10 mg PO DAILY Qty: 30 0RF calcium carbonate-vitamin D3 [Oyster Shell Calcium-Vit D3] 500 mg-10 mcg (400 unit) tablet 1 tab PO BID 90 Days Qty: 180 1RF esomeprazole magnesium [Nexium] 40 mg capsule,delayed release(DR/EC) 40 mg PO DAILY azelastine 137 mcg (0.1 %) spray,non-aerosol 2 spray intranasal BID 30 Days Qty: 30 6RF Rx Instructions: administer into each nostril Print Language: Micronesian
[2024-04-16] MEDS: Ketorolac Tromethamine 15 MG/ML VIAL IVPUSH (11:43)
[2024-04-16] MEDS: ondansetron HCL 4 MG/2 ML VIAL IVPUSH (11:43)
[2024-04-16] MEDS: 0.9 % Sodium Chloride 500 ML 999 ML IV (11:44)
[2024-04-16 13:53] VITALS: BP 151/79; PULSE 70; RESP 18; TEMP 36.6; O2SAT 100
[2024-04-16 15:13] VITALS: BP 165/82; PULSE 73; RESP 14; TEMP 36.6; O2SAT 97
[2024-04-16 15:23] VITALS: BP 165/82; PULSE 73; RESP 14; TEMP 36.6; O2SAT 97
== END 2024-04-16 15:23 | disposition home or self-care (01) ==
PROVIDERS: Emergency Provider Student in an Organized Health Care Education/Training Program; PCP Physician Assistant
DX: R11.2 Nausea with vomiting, unspecified (principal); R10.2 Pelvic and perineal pain; R19.7 Diarrhea, unspecified; R51.9 Headache, unspecified; Z03.818 Encounter for observation for suspected exposure to other biological agents ruled out; Z79.899 Other long term (current) drug therapy
CPT/HCPCS: 0241U; 80048; 80076; 83690; 85025; 96361; 96374; 96375; 99284; 99285; J1885; J2405

== ENCOUNTER 2024-05-11 08:49 | Outpatient (AMB) | payer MEDICARE, SELFPAY ==
--- NOTE | 2024-05-11 08:56 | A.OFFVIS_ITS ---
Vital Signs 05/11/24 09:04 Height 5 ft 6 in Weight 167 lb BMI 27.0 BP 120/90 H Blood Pressure Location Lt brachial Position Sitting Pulse 62 Pulse Source Pulse Oximeter Pulse Oximetry (%) 93 Oxygen Delivery Method Room Air Intake Visit Reasons: patient has shooting pain trigeminal neuralgia Research Home Economist Required: No Accompanied by: Self / Same As Patient Allergies carbamazepine Allergy (Severe, Verified 05/11/24 08:59) Itchyness, rash all over body oxcarbazepine Allergy (Severe, Verified 05/11/24 08:59) Hives Iodinated Contrast Media [IODINATED CONTRAST MEDIA - IV DYE] Allergy (Intermediate, Verified 05/11/24 08:59) RASH, LIPS SWELLING peach [PEACH] Allergy (Mild, Verified 05/11/24 08:59) RASH.ITCHY pear [PEAR] Allergy (Mild, Verified 05/11/24 08:59) RASH, ITCHY strawberry [STRAWBERRY] Allergy (Mild, Verified 05/11/24 08:59) RASH, ITCHY Egg Derived [EGG DERIVED] Allergy (Unknown, Verified 05/11/24 08:59) UNKNOWN Medication List - Last Reconciled 05/11/24 by Deja Ferro, REGGIE albuterol sulfate 90 mcg/actuation 2 puffs inhalation Q4-6H PRN 30 days brimonidine 0.2% drps ophthalmic (eye) calcium carbonate-vitamin D3 500 mg-10 mcg (400 unit) (Oyster Shell Calcium- Vitamin D3) 1 tab PO BID 90 days dorzolamide-timolol (PF) 2-0.5 % 1 drp ophthalmic (eye) BID esomeprazole magnesium (Nexium) 40 mg PO DAILY fluticasone furoate 27.5 mcg/actuation 2 sprays intranasal DAILY fluticasone propionate 50 mcg/actuation 1 spray intranasal DAILY 30 days indomethacin 25 mg PO TID PRN 30 days latanoprost 0.005% 1 drp ophthalmic (eye) DAILY loratadine (Allergy Relief (loratadine)) 10 mg PO DAILY magnesium oxide 400 mg PO DAILY 30 days netarsudil 0.02% 1 drp ophthalmic-Left QPM ondansetron 4 mg PO Q8H PRN pregabalin (Lyrica) 75 mg PO BID 90 days pyridoxine (vitamin B6) 50 mg PO DAILY HPI Comments Details: 68-yr-old female presents for f/u visit of left facial pain. Pt is accompanied by dtr Anat Reaves, joins via phone call. Pt denies any interval medical history changes. The left facial pain has been been very intense in the last 2 weeks especially. The pain is often in the Left V2 distribution into the left nostril, but also the left V3 distribution. It is never in V1/eye distribution. The pain is very strong, aching like a toothache, or burning. The pain lasts seconds, but can reccur repeatedly. Yesterday, she had 5 attacks an hour, but it can be more. The pain is still triggered by light touch or chewing. The attack is not a/w red eyes/watery eyes, congestion- she states she just always has allergies. The cold weather does not seem to affect the pain. She applies warm compresses, but this does not really help. She does not think the pregabalin 75 MG po B.I.D. is working as well as before, and causing s/e's- nausea/sometimes vomiting, imbalance, tired, weak, and decreased appetite- sometimes eating just because she knows she needs to eat. She did not try Indomethacin- was worried about adding meds. She tried Mag Ox- but it made her sick. She has ENT consult today. She tried Azelastine, but her radiological defense officer changed her to flonase AND Xyzal. 01/02/2024, PREVIOUS HPI: Pt had called over the summer, reporting increased left facial pain in Oct. She had ER eval and was given a course of ABT for sinusitis. At that time, pt was advised to have f/u brain MRI, which was completed last week: MR/MR head/brain wo/w con IMPRESSION: 1. No evidence of intracranial hemorrhage, acute infarction, mass effect, edema, or abnormal enhancement. 2. Moderate changes of small vessel ischemia, minimally progressed although unknown if this is true progression or represents improvement of image quality from updated MRI unit. 3. Cranial nerves V are normal in course and caliber. Meckel's caves are normal in signal. No abnormal enhancement. No changes. 4. 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 5. Moderate chronic pansinus disease without evidence of definite acute disease. Reviewed pt's history of Left facial pain, which started in 2015. She initially thought was dental pain. The pain was always in the left upper and lower jaw as intense brief pain attacks lasting seconds. This can be triggered by light mechanical stimuli, chewing. Since June, she now has similar pain attacks when she has the left facial attacks, that start in the left side of the nose and moves down into left upper lip and into the left jaw. This can also be triggered by light mechanical stimuli, chewing. In the past months, she has been having an attack every 10-15 minutes. But in the past few days, she has had 3 attacks per day- say when brushing her teeth. She is not exactly sure what prompted the improvement, other than that she taking the course of ABT in early Oct. She also started accupuncture tx 4 weeks ago- to tx sinus s/s. The only time she reports relief is when sleeping. She is currently taking pregabalin 75mg bid- this is helping to dull the pain, but sometimes causes dizziness, drowsiness, loose stools. She does have a chronic hoarse voice, which she attributes to post nasal drip. She does have some acid reflux- not daily. Denies h/o asthma, She does take flonase but not always consistently. And has recently switched from claritin to zyrtec. She is scheduled to see ENT in May 2024. She has not seen her previous ENT, who was giving her allergy shots in a few years. The allergy shots helped the chronic post-nasal drip and voice, but the facial pain. In the past, she has tried: gabapentin - lost effectiveness oxcarbazepine/carbamazepine - allergic Pt does not recall ever trying lamotrigine. [facility] Surgical History History of tonsillectomy Family History Father Cancer Multiple sclerosis Mother Cancer Leukemia Sister Multiple sclerosis Social History Housing: House Unable to assess alcohol history related to: Unknown Alcohol intake: never Patient Tobacco Use Status: Never used Tobacco e-Cigarette/Vaping Use: Never Used Second Hand Smoke Exposure: No service: No Current occupational status: retired Cognitive needs: No Hearing needs: No Vision needs: Yes (glasses) Physical Exam Vital Signs: Last Vital Signs Pulse 62 05/11/24 09:04 BP 120/90 H 05/11/24 09:04 Pulse Ox 93 05/11/24 09:04 Oxygen Delivery Method Room Air 05/11/24 09:04 BMI result Body Mass Index 27.0 Const General: cooperative and no acute distress Orientation/consciousness: patient oriented x3 Resp Effort & Inspection: normal respiratory effort and able to speak in complete sentences Auscultation: clear to auscultation bilaterally Cardio Rate: regular rate Rhythm: regular rhythm Neuro Other: Mild left lower facial assymetry Signs of lower teeth wearing General: patient oriented x3 Cognition (Neuro): normal cognition Psych Appearance: grossly normal Mental Status: mental status grossly normal Speech and movement: Normal speech and movement present Affect: normal affect Attitude: cooperative Assessment & Plan Assessment & Plan (1) Trigeminal neuralgia: Code(s): G50.0 - Trigeminal neuralgia Category: Medical (2) Nausea: Code(s): R11.0 - Nausea Category: Medical (3) Chronic sinusitis: Code(s): J32.9 - Chronic sinusitis, unspecified Category: Medical (4) Food allergy: Code(s): Z91.018 - Allergy to other foods Category: Medical (5) Environmental allergies: Code(s): Z91.09 - Other allergy status, other than to drugs and biological substances Category: Medical (6) TMJ arthritis: Comment: L > R Code(s): M26.649 - Arthritis of unspecified temporomandibular joint Category: Medical Plan As her TN s/s worsen when pt has increased sinusitis s/s and MRI shows chronic pansinus inflammation, ENT consult today as scheduled. Copy of most recent brain MRI given to patient to share with ENT. As patient is reporting significant side effects from pregabalin, slowly decrease pregabalin from 75 mg b.i.d. to 50 mg in a.m. and 75 mg in p.m. x's 3 days, then 50mg twice a day x's 3 days, then 25 mg in a.m. and 50 mg p.m. x's 3 days, then 25 mg twice a day x's 3 days, then 25 mg in p.m. x's 3 days, then stop. Once patient has fully stopped pregabalin, start indomethacin 25mg cap: 1 cap 3 times a day x's 1 week, then 2 caps 3 times a day x1 week, then 3 caps 3 times a day. Indomethacin must always be taken with milk or food. Will request allergy consult. Start home Sphenopalatine Ganglion Block with Intranasal Lidocaine? 2% viscous solution: Home Instructions for Intranasal Lidocaine/Sphenopalatine Ganglion Block * Do not take this by mouth. * This is for intranasal administration only * Draw up 1 ml of 2% viscous lidocaine into a thin 1ml dosing syringe (the syringe should be thin enough to be inserted deep into the nose). * Self administer 1 mL of 2% viscous lidocaine solution into nasal passage on the same side as the head pain.? * Lidocaine? may be administered into bilateral nasal passages if the headache/? facial pain is on both sides of the head. * Dose may be repeated x1 in 15 minutes. Max of 4 mL per nasal passage per day. Technique: * Lie down on your side curled up like a baby sleeping on its side, with your shoulder on the back of a firm pillow, and your head tilted back and rotated so you are looking up ~30 degrees. * Put the syringe into the lower nostril on the same side as your headache/facial pain, as far as it will comfortably go, with the tip pointing towards the outer (lateral) wall of the nostril. * Inject the contents of the syringe, and then sniff the medicine so that you feel it goes to the back of the nostril, but not into the throat. * If you feel burning or numbness into the eye, or if the eye tears, you know you have gotten the medicine where it needs to be. * Stay lying down with your head turned for 2 ? 3 minutes. * If your headache/facial pain is on both sides, roll over and repeat the procedure on the other side. Stay lying down for 2-3 minutes on this side. After sitting up: * When you sit up, whatever medicine has not been absorbed into your nose will roll back into your throat. * It will taste bitter and may make your throat numb. * Don?t eat or drink until the numbness has gone away ? otherwise you might swallow food or liquid into your windpipe. For further information, please see the information listed below. For further information, please review the following: Please note that some of the information below comes from [employer], which is an organization specific cluster headache. However, their explanation and video is applicable to migraine, trigeminal neuralgia and facial pain? disorders. * https://[employer]on.org/resource/hxuh-avkpekrlujau-vce-intranasal- vzjsirzxq-rquxnfwbbmofjl-efhccwqn-block/ * https://www.youtube.com/watch?v=e8C0b6w4N2M * chrome-extension://efaidnbmnnnibpcajpcglclefindmkaj/ https://www.[facility].org/assets/Faraymundokne r/headache-center/documents/nasal-lidocaine.pdf For moderate changes of small vessel ischemia: BP normotensive. Last HgA1C 6%. Pt advised to continue to optimize CV and metabolic control, and to engage in regular physical, social, and cognitively stimulating activities. Will follow-up in 1-2 months to review response to above plan and patient to follow-up in clinic in 6 months or sooner prn. Orders: Orders Vitamin B6 05/11/24 R11.0 - Nausea, G50.0 - Trigeminal neuralgia, R20.2 - Paresthesia of skin, R53.82 - Chronic fatigue, unspecified, J32.9 - Chronic sinusitis, unspecified Complete Blood Count Auto Diff 05/11/24 G50.0 - Trigeminal neuralgia, R11.0 - Nausea, R53.82 - Chronic fatigue, unspecified, J32.9 - Chronic sinusitis, unspecified Comprehensive Met. Panel 05/11/24 G50.0 - Trigeminal neuralgia, R11.0 - Nausea, R53.82 - Chronic fatigue, unspecified, J32.9 - Chronic sinusitis, unspecified Medications: New pregabalin 25 mg PO TID 90 caps 1RF 30 days Coding Level of Care Code Est Pt Level 4 (19456) Complex EM visit Add On G2211 Diagnoses Trigeminal neuralgia G50.0 Nausea R11.0 Chronic sinusitis J32.9 Food allergy Z91.018 Environmental allergies Z91.09 TMJ arthritis M26.649
[2024-05-11 09:04] VITALS: BP 120/90; PULSE 62; O2SAT 93; BMI 27.0
--- OUTSIDE RECORDS SUMMARY | 2024-05-11 09:13 | XMS_ITS | Clinical Summary ---
Author Organization [facility] Address [address] [id number] Care Team Providers Care Die Drawing Checker Name Role Phone Ray Mak Primary Care Provider [phone] Social History Tobacco Use Types Packs/Day Years Used Date Smoking Tobacco: Never Assessed Intimate Partner Violence Answer Date R ecorded Fear of Current or Ex-Partner Not on file Emotionally Abused Not on file 11/22/2022 Physically Abused Not on file 11/22/2022 Sexually Abused Not on file 11/22/2022 Feel Safe at Home Not on file 11/22/2022 Comments Unknown Sex and Gender Information Value Date Recorded Sex Assigned at Not on file Legal Sex Female 12:01 PM EDT Gender Identity Not on file Sexual Orientation Not on file Plan of Treatment Health Maintenance Due Date Last Done Comments Hepatitis C Screening 1955 DTaP/Tdap/Td (1 - Tdap) 12/07/1973 Mammogram/Breast Imaging 1995 Colon Cancer Screening 12/07/2000 Pneumococcal 50+ years (1 of 1 - PCV) 12/07/2005 Zoster (Shingrix) (1 of 2) 12/07/2005 Bone Density 12/07/2020 COVID-19 Vaccine ( - 2023-2 5 season) 2023 Influenza (#1) 2023 RSV (1 - 1-dose 75+ series) 12/07/2030 HPV Vaccine Aged Out No longer eligi ble based on patient's age to complete this topic Hep A Aged Out No longer eligi ble based on patient's age to complete this topic Hep B Aged Out No longer eligi ble based on patient's age to complete this topic Hib Aged Out No longer eligi ble based on patient's age to complete this topic Meningococcal ACWY Aged Out No longer eligible based on patient's age to complete this topic Pap Smear Discontinued Zoster (Zostavax) Discontinued Insurance [employer] MEDICARE Care Teams Die Drawing Checker Relationship Specialty Start Date End Date Ray Mak PA [address] [place] [address] PCP - General Physician Boat Joiner Helper 08/02/21
== END 2024-05-11 10:27 | disposition home or self-care (01) ==
PROVIDERS: PCP Physician Assistant; Visit Provider Nurse Practitioner Family
DX: G50.0 Trigeminal neuralgia (principal); R11.0 Nausea; J32.9 Chronic sinusitis, unspecified; Z91.018 Allergy to other foods; Z91.09 Other allergy status, other than to drugs and biological substances; M26.649 Arthritis of unspecified temporomandibular joint
CPT/HCPCS: 99214; G2211

== ENCOUNTER → 2024-05-11 08:49 | Outpatient (BNVA) | payer MEDICARE, SELFPAY | PROVIDERS: PCP Physician Assistant; Visit Provider Nurse Practitioner Family | DX: G50.0 Trigeminal neuralgia (principal); R11.0 Nausea; J32.9 Chronic sinusitis, unspecified; M26.649 Arthritis of unspecified temporomandibular joint; R53.82 Chronic fatigue, unspecified; Z91.09 Other allergy status, other than to drugs and biological substances; Z91.018 Allergy to other foods | CPT/HCPCS: 99212 ==

== ENCOUNTER 2024-05-20 11:25 | Outpatient (REF) | payer MEDICARE, SELFPAY ==
--- OUTSIDE RECORDS SUMMARY | 2024-05-20 12:07 | XMS_ITS | Data Portability ---
Author Organization [place] [facility] Address [address] [place] [id number] Care Team Providers Care Math Instructor Name Role Phone MALINIGULSHANLEESA Primary Care Provider Assessment No assessment recorded. Plan of Treatment Reminders Order Date Submit Date Provider Last Modified By Organization Details Last Modified Time Details Appointments Establish ed 30 2024 01:30P M SONNY Newton MD Not available Not available Not available Lab None recorded. Referral None recorded. Procedures None recorded. Surgeries None recorded. Imaging CT, sinuses, w/o contrast 2024 025 DEN[facility], [address], [address], [place], [address], 05/13/2024 08:37:57 Medication Orders None recorded. Patient TargetsNo targets recorded. Patient InstructionsNo instructions recorded. Reason for Referral None Reported. Results Created Date Observation Date Name Description Value Unit Range Abnormal Flag Note LastModifiedBy Organization Detail LastModifiedTime 05/13/1905/12/2024 CT, sinus es, w/o contr ast No observ ation record ed. [email or web address] [facility] [address], [place], [address], 05/14/2024 10:06:33 05/13/1912/13/2023 MRI, brain , w/wo contr ast No observ ation record ed. [email or web address] Not Available 2024 16:27:14 Result Notes None recorded. Problems Name Problem SNOMED Code Status Onset Date Resolution Date Notes Provider Name and Address Organization Details Recorded Time Nasal congestion 65485279 Active 2016 Nasal congesti on; Note: Date Diagnose d: 7 11:36 AM (R09.81) Not Available [facility] 4 03:09:48 Gastroesoph ageal reflux disease without esophagitis 639879647 Active 2016 Gastro-e sophagea l reflux disease without esophagi tis; Note: Date Diagnose d: 7 11:36 AM (K21.9) Not Available [facility] 4 03:09:49 Dysphonia 29270612 Active 2016 Hoarsene ss; Note: Date Diagnose d: 7 11:36 AM (R49.0) Not Available Critical access hospital 4 03:09:49 Chronic pansinusiti s 50735444 Active 2024 SONNY CANDELARIO MD [address] 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 [place] 13:25:37 Problem Notes None recorded. Procedures Surgical History Date Name Laterality Status Provider Name and Address Organization Details Recorded Time 05/11/2024 NasalEndos copy_DP completed SONNY CANDELARIO MD [address] [place] [address],[place] [address], [place], [address], [place] [facility] 05/11/2024 13:24:39 Imaging Results Imaging Date Name Status LastModified by Organiz ation Details LastModified Time 05/12/2024 CT, sinuses, w/o contrast completed [facility] [place] [address], [place], [address], 05/14/2024 10:06:33 12/13/2023 MRI, brain, w/wo contrast completed [email or web address] Information not available 05/13/2024 16:27:14 Procedure Notes None recorded. Medical Equipment None Reported. Allergies No known drug allergies Medications Name Sig Start Date Stop Date Status Note LastModified by Organization Details LastModified Time latanopro st 0.005 % eye drops INSTILL 1 DROP INTO BOTH EYES EVERY NIGHT AT BEDTIME active Not Available Not Available No t Available prednison e 10 mg tablet Take 4 tabs PO for 3 days then 2 tabs PO for 3 days then 1 tab PO for 3 days then stop 2024 active Not Available Not Available Not Avai lable ofloxacin 0.3 % eye drops INSTILL 1 DROP INTO BOTH EYES THREE TIMES A DAY FOR 2 WEEKS, THEN STOP 05/11 completed Not Available Not Available Not Available prednison e 20 mg tablet TAKE 1 TABLET BY MOUTH EVERY DAY FOR 5 DAYS 05/11 completed Not Available Not Available Not Available amoxicill in 875 mg tablet TAKE 1 TABLET BY MOUTH TWICE A DAY FOR 7 DAYS 05/11 completed Not Available Not Available Not Available magnesium oxide 400 mg (241.3 mg magnesium ) tablet TAKE 1 TABLET BY MOUTH EVERY DAY 05/11 completed Not Available Not Available Not Available brimonidi ne 0.2 % eye drops INSTILL 1 DROP INTO LEFT EYE 3 TIMES A DAY active Not Available Not Available No t Available indometha ally 25 mg capsule TAKE 1 CAP ORALLY 3 TIMES A DAY NEEDED FOR LEFT FACIAL PAIN FOR 30 DAYS TAKE WITH FOOD OR MILK 05/11 completed Not Available Not Available Not Available pyridoxin e (vitamin B6) 50 mg tablet TAKE 1 TABLET BY MOUTH EVERY DAY 05/11 completed Not Available Not Available Not Available dorzolami de 22.3 mg-timolo l 6.8 mg/mL eye drops INSTILL 1 DROP INTO BOTH EYES TWICE A DAY active Not Available Not Available No t Available monteluka st 10 mg tablet TAKE 1 TABLET BY MOUTH EVERYDAY AT BEDTIME 05/11 completed Not Available Not Available Not Available azelastin e 137 mcg (0.1 %) nasal spray 2 SPRAY INTRANAS ALLY 2 TIMES A DAY FOR 30 DAYS ADMINIST ER INTO EACH NOSTRIL 05/11 completed Not Available Not Available Not Available albuterol sulfate HFA 90 mcg/actua tion aerosol inhaler TAKE 2 PUFFS BY MOUTH EVERY 4 TO 6 HOURS NEEDED BRONCHOS PASM active Not Available Not Available No t Available ondansetr on 4 mg disintegr ating tablet DISSOLVE 1 TABLET ORALLY EVERY 8 HOURS NEEDED FOR NAUSEA AND VOMITING 05/11 completed Not Available Not Available Not Available fluticaso ne propionat e 50 mcg/actua tion nasal spray,renetta pension SPRAY 1 SPRAY INTO EACH NOSTRIL EVERY DAY active Not Available Not Available No t Available doxycycli ne hyclate 100 mg tablet Take 1 tablet twice a day by oral route for 10 days. 2024 active Not Available Not Available Not Avai lable loratadin e 10 mg tablet TAKE 1 TABLET ORALLY DAILY 05/11 completed Not Available Not Available Not Available amoxicill in 875 mg-potass ium clavulana te 125 mg tablet TAKE 1 TABLET BY MOUTH TWICE A DAY 05/11 completed Not Available Not Available Not Available pregabali n 75 mg capsule TAKE 1 CAPSULE BY MOUTH TWICE A DAY FOR 90 DAYS active Not Available Not Available No t Available Xyzal 5 mg tablet Take 1 tablet every day by oral route. active Not Available Not Available No t Available [facility] 60 mg tablet 05/11 completed Medicati on ID: [id number] Deisy rand Name: [facility] Send Method: E-Prescr ibed Sub s Allowed: subs OK Medic ationGen ericName : [facility] Not Available Not Available Not Available Rhopressa 0.02 % eye drops INSTILL 1 DROP INTO LEFT EYE EVERY NIGHT AT BEDTIME 05/11 completed Not Available Not Available Not Available Vitals Date Recorded Body height Body mass index (BMI) Body weight Provider Name and Address Organization Details Last Updated DateTime 05/11/2024 167.64 cm 26.5 kg/m2 68427.15 g Mireya Wakefield [place] [facility] 05/11/2024 13:08:09 Social History None recorded. Functional Status None recorded. Mental Status None recorded. Family History Nothing Reported. Medical History No medical history recorded. Gynecological HistoryNo gynecological history recorded. Obstetrics History GPAL:G 0 P 0 0 0 0 Past Encounters Encounter ID Performer Location Encounter Start Date Encounter Closed Date Diagnosis/Indication Diagnosis SNOMED-CT Code Diagnosis ICD10 Code Diagnosis Note [id number] SONNY CANDELARIO MD [facility] on [address] [place] [address] 05/11/2024 12:50:22 05/11/2024 13:25:30 Chronic pansinusitis [id number] J32.4 Nasal endo was negative for purulence and polyps. I recommend a CT sinus to evaluate for chronic sinusitis as the cause of her facial pain with f/u thereafter . If negative it is likely caused by her trigeminal neuralgia. I will plan maximal medial therapy if sinusitis on CT. I reviewed her MRI which showed mucosal thickening . Atypical facial pain 713 [address]242 G50.1 see above Health Concerns Section Related Observation LastModified by Organization Detai ls LastModified Time None Recorded Concern Status LastModified by Organization Details LastModified Time None Recorded Advance Directives Directive None Recorded Payers Encounter Date Sequence Insurance Name Policy Number Policy Lopez Covered Member ID Lopez Member ID Guarantor Name 05/11/2024 1 [facility] (MEDICARE REPLACEMENT/A DVANTAGE - PPO) [id number] Shiva Odell [id number] Shiva Odell Notes Date Note Type Note Provider Name and Address Organization Details Recorded Time 05/11/2024 text/html She presents wit h frontal and maxillary facial pressure. She has a history of facial pain and trigeminal neuralgia. Had an MRI 12/2023 which showed pansinus mucosal thickening without airway fluid levels. She was treated once in the last year for sinusitis with abx and a medrol pack. Denies nasal congestion. She has the headache for the last month everyday. No hx of migraine. SONNY CANDELARIO MD [address] [place] [address], [phone], [facility] - [facility] 05/11/2024 13:28:42 OBGyn Episode No OBEpisode recorded.
--- OUTSIDE RECORDS SUMMARY | 2024-05-20 12:07 | XMS_ITS | Clinical Summary ---
Author Organization [facility] Address [address] [id number] Care Team Providers Care Applications Support Analyst Name Role Phone Ray Mak Primary Care Provider [phone] Social History Tobacco Use Types Packs/Day Years [...] Discontinued Insurance [employer] MEDICARE Care Teams Applications Support Analyst Relationship Specialty Start Date End Date Ray Mak PA [address] [place] [address] PCP - General Physician Line Puller 08/02/21
--- OUTSIDE RECORDS SUMMARY | 2024-05-20 12:07 | XMS_ITS | Continuity of Care Document ---
Author Organization [place] - [facility], [facility] Address [address] [place] [address] Care Team Providers Care Financial Services Professional Name Role Phone LEESA NAYAK Primary Care Provider Assessment No assessment recorded. Plan of Treatment Reminders Order Date Submit Date Provider Last Modified By Organization Details Last Modified Time Details Appointments Establish ed 30 2024 01:30P M SONNY Newton MD Not available Not available Not available Lab None recorded. Referral None recorded. Procedures None recorded. Surgeries None recorded. Imaging CT, sinuses, w/o contrast 2024 025 DENISE [facility] [place], [address] , [facility] [address], [place], [address], 05/13/2024 08:37:57 Medication Orders None recorded. Patient TargetsNo targets recorded. Patient InstructionsNo instructions recorded. Reason for Referral None Reported. Results Created Date Observation Date Name Description Value Unit Range Abnormal Flag Note LastModifiedBy Organization Detail LastModifiedTime 05/13/1905/12/2024 CT, sinus es, w/o contr ast No observ ation record ed. [email or web address] [facility] [place] [address] [facility] [address], [place], [address], 05/14/2024 10:06:33 05/13/19 25 12/13/2023 MRI, brain , w/wo contr ast No observ ation record ed. [email or web address] Not Available 2024 16:27:14 Result Notes None recorded. Problems Name Problem SNOMED Code Status Onset Date Resolution Date Notes Provider Name and Address Organization Details Recorded Time Nasal congestion 11788165 Active 2016 Nasal congesti on; Note: Date Diagnose d: 7 11:36 AM (R09.81) Not Available [facility] 4 03:09:48 Gastroesoph ageal reflux disease without esophagitis 220212887 Active 2016 Gastro-e sophagea l reflux disease without esophagi tis; Note: Date Diagnose d: 7 11:36 AM (K21.9) Not Available [facility] 4 03:09:49 Dysphonia 43815757 Active 2016 Hoarsene ss; Note: Date Diagnose d: 7 11:36 AM (R49.0) Not Available [facility] 4 03:09:49 Chronic pansinusiti s 57835243 Active 2024 SONNY CANDELARIO MD [address] [place] [address], [place], [address] , [place] [facility] 5 13:16:57 Atypical facial pain 30602005 Active 2024 SONNY CANDELARIO MD [address] [place] [address], [place], [address] , [facility] 5 13:17:00 Chronic sinusitis 17117118 Active 2024 SONNY CANDELARIO MD [address] [place] [address], [place], [address] , [facility] 5 13:25:37 Problem Notes None recorded. Procedures Surgical History Date Name Laterality Status Provider Name and Address Organization Details Recorded Time 05/11/2024 NasalEndos copy_DP completed SONNY CANDELARIO MD [address] [place] [address],[place] [address], [place], [address], [facility] 05/11/2024 13:24:39 Imaging Results None recorded. Procedure Notes None recorded. Medical Equipment None [...] mg tablet 05/11 completed Medicati on ID: [id number] B rand Name: Valarie Allergy Send Method: E-Prescr [...] Updated DateTime 05/11/2024 167.64 cm 26.5 kg/m2 63659.15 g Mireya Wake[place] [facility] 05/11/2024 13:08:09 Social History None recorded. Functional Status None recorded. Mental Status None recorded. Family History Nothing Reported. Medical History No medical history recorded. Gynecological HistoryNo gynecological history recorded. Obstetrics History GPAL:G 0 P 0 0 0 0 Past Encounters Encounter ID Performer Location Encounter Start Date Encounter Closed Date Diagnosis/Indication Diagnosis SNOMED-CT Code Diagnosis ICD10 Code Diagnosis Note [id number] SONNY CANDELARIO MD [facility] on [address] [place] [address] 05/11/2024 12:50:22 05/11/2024 13:25:30 Chronic pansinusitis 95660135 J32.4 Nasal endo was negative for purulence and polyps. I recommend a CT sinus to evaluate for chronic sinusitis as the cause of her facial pain with f/u thereafter . If negative it is likely caused by her trigeminal neuralgia. I will plan maximal medial therapy if sinusitis on CT. I reviewed her MRI which showed mucosal thickening . Atypical facial pain 713 76170 G50.1 see above Health Concerns Section Related Observation LastModified by Organization Detai ls LastModified Time None Recorded Concern Status LastModified by Organization Details LastModified Time None Recorded Payers Encounter Date Sequence Insurance Name Policy Number Policy Lopez Covered Member ID Lopez Member ID Guarantor Name 05/11/2024 1 [facility] (MEDICARE REPLACEMENT/A DVANTAGE - PPO) [id number] Shiva Odell [id number] Shiva Odell Notes Date Note Type Note [...] No hx of migraine. SONNY CANDELARIO MD [address] [place] [address], [place], [address], [place] [facility] 05/11/2024 13:28:42 OBGyn Episode No OBEpisode recorded.
== END 2024-05-20 11:26 | disposition home or self-care (01) ==
LOC: HO.MAMMO 11:25
PROVIDERS: PCP Physician Assistant; Visit Provider Physician Assistant
DX: Z12.31 Encounter for screening mammogram for malignant neoplasm of breast (principal)
CPT/HCPCS: 77063; 77067

== ENCOUNTER → 2024-05-20 11:30 | Outpatient (BNV) | payer MEDICARE, SELFPAY | PROVIDERS: PCP Physician Assistant; Visit Provider Internal Medicine | DX: Z12.31 Encounter for screening mammogram for malignant neoplasm of breast (principal) | CPT/HCPCS: 77063; 77067 ==

== ENCOUNTER 2024-07-11 08:11 | Outpatient (REF) | payer MEDICARE, SELFPAY ==
[2024-07-11 08:35] LABS: MANUAL DIFF FLAG NO
[2024-07-11 09:10] LABS: Basophils Percent Auto 0.6 % (0-2); Eosinophils Absolute Auto 0.6 X10*3/uL (0.0-0.4); Eosinophils Percent Auto 9.6 % (0-4); Hematocrit 39.8 % (37.0-47.0); Hemoglobin 12.4 g/dl (12.0-16.0); Imm Gran Abs Auto 0.01 X10*3/uL (0.00-0.03); Imm Gran Pct Auto 0.2 % (0.0-0.4); Lymphocytes Percent Auto 29.9 % (20-40); Mean Corpuscular HGB Conc 31.2 g/dl (31.0-35.0); Mean Corpuscular Hemoglobin 27.3 pg (27.0-33.0); Mean Corpuscular Volume 87.7 fL (80.0-98.0); Mean Platelet Volume 9.8 fL (9.4-12.3); Monocytes Absolute Auto 0.6 X10*3/uL (0.1-1.2); Monocytes Percent Auto 8.4 % (2-11); Neutrophils Absolute Auto 3.4 x10*3/uL (2.0-8.3); Neutrophils Percent Auto 51.3 % (45-73); Platelet Count 282 X10*3/uL (160-400); Red Blood Count 4.54 X10*6/uL (4.20-5.50); Red Cell Distribution Width 14.1 % (11.0-16.0); White Blood Count 6.7 X10*3/uL (4.8-10.8)
[2024-07-11 09:47] LABS: Alanine Aminotransferase 22 U/L (0-31); Albumin Level 4.1 g/dL (3.5-5.0); Alkaline Phosphatase 109 U/L (39-117); Anion Gap 12 (12-20); Aspartate Amino Transferase 29 U/L (5-31); Bilirubin Total 0.4 mg/dL (0.0-1.0); Blood Urea Nitrogen 17 mg/dL (9-16); Calcium 9.1 mg/dL (8.4-10.2); Carbon Dioxide 27 mmol/L (22-29); Chloride 108 mmol/L (96-108); Cholesterol 189 mg/dL (<200); Estimated Glomerular Filt Rate > 60; Glucose Fasting 109 mg/dL (60-99); Glucose Random 108 mg/dL (60-115); HDL Cholesterol 49 mg/dL (>40); LDL Cholesterol Calculated 120 mg/dL (<100); Potassium 4.3 mmol/L (3.3-5.1); Sodium 143 mmol/L (135-145); Total Protein 7.3 g/dL (6.5-8.0); Triglycerides 100 mg/dL (<150)
[2024-07-17 14:47] LABS: Vitamin B6 33.4 ng/mL (2.1-21.7)
== END 2024-07-11 08:12 | disposition home or self-care (01) ==
LOC: HO.LAB 08:11
PROVIDERS: Nurse Practitioner Family; PCP Physician Assistant; Visit Provider Physician Assistant
DX: Z13.1 Encounter for screening for diabetes mellitus (principal); E78.9 Disorder of lipoprotein metabolism, unspecified; G50.0 Trigeminal neuralgia; R11.0 Nausea; R53.82 Chronic fatigue, unspecified; J32.9 Chronic sinusitis, unspecified; R20.2 Paresthesia of skin
CPT/HCPCS: 36415; 80053; 80061; 84207; 85025; 85027

== ENCOUNTER 2024-07-23 14:41 | Outpatient (AMB) | payer MEDICARE, SELFPAY ==
--- NOTE | 2024-07-23 14:43 | A.OFFPC_ITS ---
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 Required: No Accompanied by: Self / Same As Patient Allergies carbamazepine Allergy (Severe, Verified 07/23/24 14:54) Itchyness, rash all over body oxcarbazepine Allergy (Severe, Verified 07/23/24 14:54) Hives Iodinated Contrast Media [IODINATED CONTRAST MEDIA - IV DYE] Allergy (Intermediate, Verified 07/23/24 14:54) RASH, LIPS SWELLING peach [PEACH] Allergy (Mild, Verified 07/23/24 14:54) RASH.ITCHY pear [PEAR] Allergy (Mild, Verified 07/23/24 14:54) RASH, ITCHY strawberry [STRAWBERRY] Allergy (Mild, Verified 07/23/24 14:54) RASH, ITCHY Egg Derived [EGG DERIVED] Allergy (Unknown, Verified 07/23/24 14:54) UNKNOWN Medication List - Last Reconciled 07/23/24 by Ray Mak PA-C albuterol sulfate 90 mcg/actuation 2 puffs inhalation Q4-6H PRN 30 days brimonidine 0.2% drps ophthalmic (eye) calcium carbonate-vitamin D3 500 mg-10 mcg (400 unit) (Oyster Shell Calcium- Vitamin D3) 1 tab PO BID 90 days dorzolamide-timolol (PF) 2-0.5 % 1 drp ophthalmic (eye) BID doxycycline hyclate 100 mg PO BID esomeprazole magnesium (Nexium) 40 mg PO DAILY fluticasone furoate 27.5 mcg/actuation 2 sprays intranasal DAILY fluticasone propionate 50 mcg/actuation 1 spray intranasal DAILY 30 days latanoprost 0.005% 1 drp ophthalmic (eye) DAILY lidocaine HCl 2% (Lidocaine Viscous) 1 mL mucous membrane DAILY PRN 30 days MDD 4 ml loratadine (Allergy Relief (loratadine)) 10 mg PO DAILY magnesium oxide 400 mg PO DAILY 30 days netarsudil 0.02% 1 drp ophthalmic-Left QPM ondansetron 4 mg PO Q8H PRN oral dosing syringes 1 mL syringes without needle. To be used as directed with viscous lidocaine intranasal order. prednisone 10 mg PO DAILY pregabalin (Lyrica) 75 mg PO BID 90 days pregabalin 25 mg PO TID 30 days pyridoxine (vitamin B6) 50 mg PO DAILY Tobacco use date assessed: 04/08/23 Dental Screening Dental Screen Date: 04/08/23 HPI hypercalcemia, HTN HPI Details Patient is a 68-year-old female here today for a follow-up visit.? Patient has a past history significant for major depressive disorder, trigeminal neuralgia. Chronic sinusitis: Also Recently has been suffering with more more sinus congestion- most recent head imaging showing ethmoid and frontal sinus congestion. Was treated with antibiotics and has been feeling a bit better. She has followed up with the ENT specialist in his considering doing allergy injection therapy. PLAN: Willing to try a prescription allergy medication thus will try Singulair as an alternative to her [id number]-[id number] allergy medication. Trigeminal neuralgia : Interval history-->? Has discontinued use of gabapentin.?Has trialed Oxycarbamazapine. .? She does have GI side effects from time to time from gabapentin use. Has seen [facility] neurologist for 2nd opinion on her trigeminal neuralgia. Has followed up with local neurologist and has gotten had MRA and MRI with chronic ischemic changes.? Now continues on Lyrica 75 mg with decent relief of her trigeminal neuralgia pain. .. Osteopenia:? Most recently had a bone density screening showing osteopenia [facility] History History of tonsillectomy Family History Father Cancer Multiple sclerosis Mother Cancer Leukemia Sister Multiple sclerosis Social History Housing: House Unable to assess alcohol history related to: Unknown Alcohol intake: never Patient Tobacco Use Status: Never used Tobacco e-Cigarette/Vaping Use: Never Used Second Hand Smoke Exposure: No service: No Current occupational status: retired Cognitive needs: No Hearing needs: No Vision needs: Yes (glasses) Questionnaire PHQ-9 Over the last 2 weeks, how often have you been bothered by any of the following problems? 1. Little interest or pleasure in doing things: not at all 2. Feeling down, depressed, or hopeless: not at all 3. Trouble falling or staying asleep, or sleeping too much: not at all 4. Feeling tired or having little energy: not at all 5. Poor appetite or overeating: not at all 6. Feeling bad about yourself - or that you are a failure or have let yourself or your family down: not at all 7. Trouble concentrating on things, such as reading the newspaper or watching television: not at all 8. Moving or speaking so slowly that other people could have noticed. Or the opposite - being so fidgety or restless that you have been moving around a lot more than usual: not at all 9. Thoughts that you would be better off or of hurting yourself in some way: not at all Total score: 0 Depression Screening Interpretation: Negative Depression Screening Done: Yes 47355 - PHQ-9 Billing: Yes Source: Developed by Drs. Tomasz Ortega, Nerissa Navarro, Artemio Rosas and colleagues, with an educational magdiel from [employer]. Thrive Questionnaire Date Thrive assessed: 07/23/24 I am a: Patient What is your living situation today?: I have a steady place to live Within the past 12 months, did the food you bought not last and you didn't have the money to get more?: Never true Within the past 12 months, did you worry whether your food would run out before you got money to buy more?: Never true Do you have trouble paying for medicines?: No Do you have trouble getting transportation to medical appointments?: No Do you have trouble paying your heating and electricity bill?: No Do you have trouble taking care of your child, family member or friend?: No Do you have trouble with day-to-day activities such as bathing, preparing meals, shopping, managing finances, etc.?: No Are you currently unemployed and looking for a job?: No Are you interested in more education?: No Please select the resources that you would like help with: None Currently or been in a relationship where the following occur: No concerns reported THRIVE Score: 0 AUDIT C Alcohol Use Questionnaire (AUDIT-C) 1. How often do you have a drink containing alcohol?: Monthly or less 2. How many drinks containing alcohol do you have on a typical day when you are drinking?: 1 or 2 3. How often do you have six or more drinks on one occasion?: Never Total Score: 1 ONI-7 AMB Questionnaire ONI-7 Date ONI - 7 assessed: 07/23/24 Feeling nervous, anxious, or on edge: 0 = Not at all Not being able to stop or control worryin = Not at all Worrying too much about different things: 0 = Not at all Trouble relaxin = Not at all Being so restless that it is hard to sit still: 0 = Not at all Becoming easily annoyed or irritable: 0 = Not at all Feeling afraid as if something awful might happen: 0 = Not at all Total ONI-7 score (0-4 normal; 5-9 mild; 10-14 moderate; 15-21 severe): 0 Source: Developed by Drs. Tomasz Ortega, Nerissa Navarro, Artemio Rosas and colleagues, with an educational magdiel from [employer]. ONI-7 Assessment Billing ONI-7 Assessment Tool: ONI-7 Assessment 55617 Review of Systems Const Denies headache(s) Eyes Denies loss of vision ENT Denies vertigo, Denies dizziness, Reports facial pain, Denies headache(s), Reports sinus pain, Reports sinus pressure and Denies sore throat Card Denies chest pain, Denies leg edema and Denies lightheadedness Resp Denies cough, Denies hemoptysis and Denies wheezing GI Denies abdominal pain, Denies melena, Denies constipation, Denies diarrhea and Denies vomiting Denies urinary frequency, Denies dysuria and Denies urinary urgency Musc Denies arthralgias, Denies joint swelling, Denies numbness and Denies tingling Neuro Denies Abnormal speech present, Denies behavioral changes, Denies vertigo, Denies dizziness, Denies headache(s), Denies loss of vision, Denies memory loss, Denies numbness and Denies tingling Psych Denies anxiety, Denies behavioral changes, Denies depression, Denies memory loss and Denies panic attacks Yadiel/Lymph Denies easy bleeding and Denies easy bruising Aller/Immun Denies wheezing Physical exam (Primary Care) Vital Signs: Last Vital Signs Temp 97.1 F 04/24/25 14:45 Pulse 84 07/23/24 14:45 BP 116/70 07/23/24 14:45 Pulse Ox 95 07/23/24 14:45 Oxygen Delivery Method Room Air 07/23/24 14:45 BMI result Body Mass Index 26.4 Tobacco/Smoking Status: Tobacco use Status Tobacco use date assessed 04/08/23 07/23/24 14:45 Patient Tobacco Use Status Never used Tobacco 07/23/24 14:45 e-Cigarette/Vaping Use Never Used 07/23/24 14:45 PHQ-9: PHQ-9 Score PHQ-9: Total score 0 07/23/24 14:56 Depression Screening Interpretation: Negative Thrive Assessment: Date of Thrive Assessment Date Thrive assessed 07/23/24 07/23/24 14:45 Currently or been in a relationship where the following occur: No concerns reported Const General: healthy appearing, no acute distress, alert and awake Nutritional Appearance: well nourished Orientation/consciousness: oriented to person, oriented to place and oriented to time HENMT Ears: TM's normal bilaterally General nose exam: Normal nasal mucous membranes and turbinates present Eyes Conjunctivae: conjunctivae normal Sclerae: sclerae normal Pupils: Equal, round and reactive pupils present Neck Neck: Yes no lymphadenopathy and Yes no JVD Thyroid: Thyroid normal Carotids: no bruits Resp Effort & Inspection: normal respiratory effort and not tachypneic Auscultation: no crackles, no rales, no rhonchi and no wheezes Cardio Rate: regular rate Rhythm: regular rhythm Heart sounds: no murmurs and normal S1 and S2 GI Palpation (GI): Soft to palpation, nontender, no hepatomegaly and no splenomegaly Auscultation: normal bowel sounds Skin General skin exam: no rashes or lesions noted and dry skin Neuro General: oriented to person, oriented to place and oriented to time Cranial nerves: Yes Equal, round and reactive pupils present Speech: No Abnormal speech present Gait exam (Neuro): Normal gait present Motor exam (neuro): no tremor noted Extrem Right upper extremity: full ROM Left upper extremity: full ROM Right lower extremity: full ROM; no edema Left lower extremity: full ROM; no edema Psych Mental Status: mental status grossly normal Speech and movement: Normal speech and movement present Affect: normal affect Attitude: cooperative Thought process: Normal thought process present Coding Level of Care Code Est Pt Level 4 (46054) Diagnoses Trigeminal neuralgia G50.0 Borderline high cholesterol E78.9 Chronic pansinusitis J32.4 Chronicity: chronic Sinusitis location: pansinusitis Additional Codes ONI-7 Assessment Billing - ONI-7 Assessment Tool: ONI-7 Assessment 78504 ([id number]) PHQ-9 - 80905 - PHQ-9 Billing: Yes ([id number]) Assessment & Plan Assessment & Plan (1) Trigeminal neuralgia: Code(s): G50.0 - Trigeminal neuralgia Category: Medical Plan: As per HPI patient continues with the use of pregabalin which is the only effective med thus far for her facial pain. Still does have breakthrough facial pain at times. (2) Borderline high cholesterol: Code(s): E78.9 - Disorder of lipoprotein metabolism, unspecified Category: Medical Plan: Most recent lipid panel showing borderline high total cholesterol. She will continue working on dietary and lifestyle modifications to reduce her cholesterol. (3) Sinusitis: Code(s): J32.9 - Chronic sinusitis, unspecified Category: Medical Qualifiers: Chronicity: chronic Sinusitis location: pansinusitis Qualified Code(s): J32.4 - Chronic pansinusitis Plan: As per HPI patient continues to have sinus congestion. Most recent imaging of her head did show moderate to severe ethmoid sinus congestion. She has been referred to sociology adjunct instructor. She has continued loratadine though has not been too effective. She would like to try montelukast to help her with possible allergy causing her sinusitis Orders: Orders Hemoglobin A1c 07/23/24 R73.01 - Impaired fasting glucose Comprehensive Anabel. Panel Fast 07/23/24 R73.01 - Impaired fasting glucose Lipid Panel 07/23/24 E78.9 - Disorder of lipoprotein metabolism, unspecified Complete Blood Count no Diff 07/23/24 R73.01 - Impaired fasting glucose Medications: New montelukast 10 mg PO DAILY 30 tabs 2RF 30 days Z91.09 - Other allergy status, other than to drugs and biological substances Changed From esomeprazole magnesium (Nexium) 40 mg PO DAILY K21.9 - Gastro-esophageal reflux disease without esophagitis To esomeprazole magnesium (Nexium) 40 mg PO DAILY 90 caps 1RF 90 days K21.9 - Gastro-esophageal reflux disease without esophagitis Refilled fluticasone propionate 50 mcg/actuation administer into each nostril 1 spray intranasal DAILY 16 grams 6RF 30 days J 30.9 - Allergic rhinitis, unspecified albuterol sulfate 90 mcg/actuation 2 puffs inhalation Q4-6H PRN 6.7 grams 0RF bronchospasm 30 days Discontinued pyridoxine (vitamin B6) Discontinued Reason: Doctor's Order 50 mg PO DAILY 90 tabs 1RF G50.0 - Trigeminal neuralgia
[2024-07-23 14:45] VITALS: BP 116/70; PULSE 84; TEMP 36.2; O2SAT 95; BMI 26.4
--- OUTSIDE RECORDS SUMMARY | 2024-07-23 17:22 | XMS_ITS | Data Portability ---
Author Organization [place] [facility], Allergy Address [address] [place] [address] Care Team Providers Care Shorer Name Role Phone LEESA NAYAK Primary Care Provider [phone] Assessment No assessment recorded. Plan of Treatment Reminders Order Date Submit Date Provider Last Modified By Organization Details Last Modified Time Details Appointments Establish ed 30 2024 01:30P M SONNY Newton MD Not available Not available Not available Lab None recorded. Referral None recorded. Procedures None recorded. Surgeries None recorded. Imaging CT, sinuses, w/o contrast 2024 025 DENISE [facility] [place], [address], [facility] [address], [place], [address], 05/13/2024 08:37:57 Medication Orders None recorded. Patient TargetsNo targets recorded. Patient InstructionsNo instructions recorded. Reason for Referral None Reported. Results Created Date Observation Date Name Description Value Unit Range Abnormal Flag Note LastModifiedBy Organization Detail LastModifiedTime 05/13/1905/12/2024 CT, sinus es, w/o contr ast No observ ation record ed. [email or web address] [facility] [place] [address], [place], [address], 05/14/2024 10:06:33 05/13/19 25 12/13/2023 MRI, brain , w/wo contr ast No observ ation record ed. [email or web address] Not Available 2024 16:27:14 07/21/19 25 05/12/2024 CT, sinus es, w/o contr ast No observ ation record ed. [email or web address] [facility] [place] [address] [facility] [address], [place], [address], 07/20/2024 11:25:10 Result Notes None recorded. Problems Name Problem SNOMED Code Status Onset Date Resolution Date Notes Provider Name and Address Organization Details Recorded Time Nasal congestion 61953043 Active 2016 Nasal congesti on; Note: Date Diagnose d: 7 11:36 AM (R09.81) Not Available [facility] 4 03:09:48 Gastroesoph ageal reflux disease without esophagitis 111644165 Active 2016 Gastro-e sophagea l reflux disease without esophagi tis; Note: Date Diagnose d: 7 11:36 AM (K21.9) Not Available [facility] 4 03:09:49 Dysphonia 53231408 Active 2016 Hoarsene ss; Note: Date Diagnose d: 7 11:36 AM (R49.0) Not Available [facility] 4 03:09:49 Chronic pansinusiti s 66117805 Active 2024 SONNY CANDELARIO MD [address] [place] [address], [place], [address] , [place] [facility] 5 13:16:57 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 Procedures Surgical History Date Name Laterality Status Provider Name and Address Organization Details Recorded Time 05/11/2024 NasalEndos copy_DP completed SONNY CANDELARIO MD [address], [address], [place] - [facility] 05/11/2024 13:24:39 Imaging Results Imaging Date Name Status LastModified by Organiz [facility] Details LastModified Time 05/12/2024 CT, sinuses, w/o contrast completed [email or web address] [facility] [place] [address], [address], 05/14/2024 10:06:33 12/13/2023 MRI, brain, w/wo contrast completed [email or web address] Information not available 05/13/2024 16:27:14 05/12/2024 CT, sinuses, w/o contrast completed [email or web address] [facility] [place] [address], [address], 07/20/2024 11:25:10 Procedure Notes None recorded. Medical Equipment None Reported. Allergies No known drug allergies Medications Name Sig Start Date Stop Date Status Note LastModified by Organization Details LastModified Time latanopro st 0.005 % eye drops INSTILL 1 DROP INTO BOTH EYES EVERY NIGHT AT BEDTIME active Not Available Not Available No t Available prednison e 10 mg tablet TAKE 4 TABS BY MOUTH X 3 DAYS, 2 TABS X 3 DAYS, 1 TAB X 3 DAYS, THEN STOP. active Not Available Not Available No t Available Lidocaine Viscous 2 % mucosal solution active Not Available Not Available Not Available ofloxacin 0.3 % eye drops INSTILL 1 [...] 30 DAYS TAKE WITH FOOD OR MILK active Not Available Not Available No t Available pyridoxin e (vitamin B6) 50 mg [...] Available doxycycli ne hyclate 100 mg tablet TAKE 1 TABLET BY MOUTH TWICE A DAY FOR 10 DAYS active Not Available Not Available No t Available loratadin e 10 mg tablet TAKE 1 TABLET ORALLY DAILY 05/11 completed Not Available Not Available Not Available amoxicill in 875 mg-potass ium clavulana te 125 mg tablet TAKE 1 TABLET BY MOUTH TWICE A DAY 05/11 completed Not Available Not Available Not Available pregabali n 25 mg capsule TAKE 1 CAPSULE BY MOUTH THREE TIMES A DAY active Not Available Not Available No t Available pregabali n 75 mg capsule TAKE 1 CAPSULE BY MOUTH TWICE A DAY FOR 90 DAYS active Not Available Not Available No t Available Xyzal 5 mg tablet Take 1 tablet every day by oral route. active Not Available Not Available No t Available [facility] 60 mg tablet 02/10 /2025 completed Medicati on ID: [id number] B rand Name: [facility] Send Method: [...] and Address Organization Details Last Updated DateTime 07/13/2024 167.64 cm 26.5 kg/m2 49841.15 g Lashell Hannah [place] [facility] 07/13/2024 13:20:03 Date Recorded Body height Body mass index (BMI) Body weight Provider Name and Address Organization Details Last Updated DateTime 05/11/2024 167.64 cm 26.5 kg/m2 84972.15 g Mireya Floreschato [facility] 05/11/2024 13:08:09 Social History None recorded. Functional Status None recorded. Mental Status None recorded. Family History Nothing Reported. Medical History No medical history recorded. Gynecological HistoryNo gynecological history recorded. Obstetrics History GPAL:G 0 P 0 0 0 0 Past Encounters Encounter ID Performer Location Encounter Start Date Encounter Closed Date Diagnosis/Indication Diagnosis SNOMED-CT Code Diagnosis ICD10 Code Diagnosis Note [id number] SONNY CANDELARIO MD [facility] on [address] [place] [phone] 05/11/2024 12:50:22 05/11/2024 13:25:30 Chronic pansinusitis 03073640 J32.4 Nasal endo was negative for purulence and polyps. I recommend a CT sinus to evaluate for chronic sinusitis as the cause of her facial pain with f/u thereafter . If negative it is likely caused by her trigeminal neuralgia. I will plan maximal medial therapy if sinusitis on CT. I reviewed her MRI which showed mucosal thickening . Atypical facial pain 713 66645 G50.1 see above [id number] SONNY CANDELARIO MD [facility] on [address] [place] [id number] 07/13/2024 13:17:22 07/13/2024 13:42:58 Chronic pansinusitis 62511958 J32.4 clinically improved. Atypical facial pain 713 27294 G50.1 improved Allergic rhinitis 188779 04 J30.9 we will obtain her allergy testing. Continue zyzol. I discussed immunother apy. She will consider. We will make another visit to review her allergy testing. Health Concerns Section Related Observation LastModified by Organization Detai ls LastModified Time None Recorded Concern Status LastModified by Organization Details LastModified Time None Recorded Advance Directives Directive None Recorded Payers Encounter Date Sequence Insurance Name Policy Number Policy Lopez Covered Member ID Lopez Member ID Guarantor Name 05/11/[address] [facility] (MEDICARE REPLACEMENT/A DVANTAGE - PPO) [id number] [id number] [facility] 07/13/[address] [facility] (MEDICARE REPLACEMENT/A DVANTAGE - PPO) [id number] Shiva Gardunoueras [id number] Shiva Odell Notes Date Note Type Note [...] No hx of migraine. SONNY CANDELARIO MD [address] [place] [address], [phone], [facility] 05/11/2024 13:28:42 07/13/2024 text/html She presents wit h frontal and maxillary facial pressure. She has a history of facial pain and trigeminal neuralgia. Had an MRI 12/2023 which showed pansinus mucosal thickening without airway fluid levels. We obtained a CT sinus 05/12/2024 which showed mild pansinusitis. I sent prednisone and doxy since the last visit. Her headaches have resolved. She has seen an motor vehicle assembler JT. She was offered SCIT but didn't want to pursue it. She is taking zyzol. She has tried flonase including sensimist and azelastine. SONNY CANDELARIO MD [address] [place] [address],[address], [phone], [facility] - [facility] 07/13/2024 13:41:47 OBGyn Episode No OBEpisode recorded.
--- OUTSIDE RECORDS SUMMARY | 2024-07-23 17:22 | XMS_ITS | Clinical Summary ---
Author Organization [facility] Address [address] [id number] Care Team Providers Care Oleomargarine Maker Name Role Phone Ray Mak Primary Care Provider [phone] Social History Tobacco Use Types Packs/Day Years [...] Discontinued Insurance [employer] MEDICARE Care Teams Oleomargarine Maker Relationship Specialty Start Date End Date Ray Mak PA [address] [place] [address] PCP - General Physician Car Pusher 08/02/21
== END 2024-07-23 15:30 | disposition home or self-care (01) ==
LOC: HO.HMCH 14:41
PROVIDERS: PCP Physician Assistant; Visit Provider Physician Assistant
DX: G50.0 Trigeminal neuralgia (principal); E78.9 Disorder of lipoprotein metabolism, unspecified; J32.4 Chronic pansinusitis

== ENCOUNTER → 2024-07-23 14:41 | Outpatient (BNVA) | payer MEDICARE, SELFPAY | PROVIDERS: PCP Physician Assistant; Visit Provider Physician Assistant | DX: G50.0 Trigeminal neuralgia (principal); E78.9 Disorder of lipoprotein metabolism, unspecified; J32.4 Chronic pansinusitis | CPT/HCPCS: 96127; 99212 ==

== ENCOUNTER 2024-10-19 13:47 | Outpatient (AMB) | payer MEDICARE, SELFPAY ==
[2024-10-19 14:13] VITALS: BP 122/62; PULSE 87; O2SAT 94; BMI 26.1
--- NOTE | 2024-10-19 14:13 | A.OFFVIS_ITS ---
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[employer] Department Required: No Accompanied by: Self / Same As Patient Allergies carbamazepine Allergy (Severe, Verified 10/19/24 14:15) Itchyness, rash all over body oxcarbazepine Allergy (Severe, Verified 10/19/24 14:15) Hives Iodinated Contrast Media (IODINATED CONTRAST MEDIA - IV DYE) Allergy (Intermediate, Verified 10/19/24 14:15) RASH, LIPS SWELLING peach (PEACH) Allergy (Mild, Verified 10/19/24 14:15) RASH.ITCHY pear (PEAR) Allergy (Mild, Verified 10/19/24 14:15) RASH, ITCHY strawberry (STRAWBERRY) Allergy (Mild, Verified 10/19/24 14:15) RASH, ITCHY Egg Derived (EGG DERIVED) Allergy (Unknown, Verified 10/19/24 14:15) UNKNOWN HPI Comments Details: 68-yr-old female presents for f/u visit of left facial pain, status post Rhizotomy Dr. Borja at [facility] on Dec 15 2019. Pt denies any interval medical history changes, other than a recent suspected left sinusitis. Pt reports about 2 weeks ago, she felt a sensation of left sided runny nose f/b a brief sharp pain running down the left side of her nose into her left front teeth. And then she started to feel left-sided nasal congestion. States this was different than her typical left sided facial pain. She saw her ENT, patient, wanted to assess via intranasal scope, however patient states she declined due to severity of her pain at the time. She states she was started on doxycycline 100mg bid x's 10 days and prednisone- which she feels is helping the left nasal pain/congestion some. She is now having very little left sided nasal pain. Follow-up with ENT in October, states that she believes she we will have the intranasal scope done at that time. PCP started her on montelukast 10mg which she his taking qam, and she continues on flonase. But she has held Xysal since she started Singulair. She has not discussed this directly w/ her ENT who is managing her allergies. She is now taking Pregabalin 25mg qam and 75mg q evening after dinner- she is tolerating this regimen better. She reports her typical left facial pain comes and goes, occurring more frequently in the past 2 weeks. However, the week prior, she did not have many bothersome attacks. The pain is often in the Left V2 distribution into the left nostril, but also the left V3 distribution. It is never in V1/eye distribution. The pain is very strong, aching like a toothache, or burning. The pain lasts seconds, but can recur repeatedly. Can occur more than 5 times a n hour. The pain is still triggered by chewing and swallowing, but less by so light touch. Usually does not have a pain attack if not moving her head or talking or eating. The attack is not a/w red eyes/watery eyes, congestion- she states she just always has allergies. The cold weather does not seem to affect the pain. She tried the intranasal lidocaine gel tx- this was difficult to do as her nasal passage is small, and the lidocaine caused a strange sensation. She did try the Indomethacin- caused GI upset. She tried Mag Ox- but it made her sick. Says are not very effective. 01/02/2024, PREVIOUS HPI: Pt had called over the summer, reporting increased left facial pain in Oct. She had ER eval and was given a course of ABT for sinusitis. At that time, pt was advised to have f/u brain MRI, which was completed last week: MR/MR head/brain wo/w con IMPRESSION: 1. No evidence of intracranial hemorrhage, acute infarction, mass effect, edema, or abnormal enhancement. 2. Moderate changes of small vessel ischemia, minimally progressed although unknown if this is true progression or represents improvement of image quality from updated MRI unit. 3. Cranial nerves V are normal in course and caliber. Meckel's caves are normal in signal. No abnormal enhancement. No changes. 4. 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 5. Moderate chronic pansinus disease without evidence of definite acute disease. Reviewed pt's history of Left facial pain, which started in 2015. She initially thought was dental pain. The pain was always in the left upper and lower jaw as intense brief pain attacks lasting seconds. This can be triggered by light mechanical stimuli, chewing. Since June, she now has similar pain attacks when she has the left facial attacks, that start in the left side of the nose and moves down into left upper lip and into the left jaw. This can also be triggered by light mechanical stimuli, chewing. In the past months, she has been having an attack every 10-15 minutes. But in the past few days, she has had 3 attacks per day- say when brushing her teeth. She is not exactly sure what prompted the improvement, other than that she taking the course of ABT in early Oct. She also started accupuncture tx 4 weeks ago- to tx sinus s/s. The only time she reports relief is when sleeping. She is currently taking pregabalin 75mg bid- this is helping to dull the pain, but sometimes causes dizziness, drowsiness, loose stools. She does have a chronic hoarse voice, which she attributes to post nasal drip. She does have some acid reflux- not daily. Denies h/o asthma, She does take flonase but not always consistently. And has recently switched from claritin to zyrtec. She is scheduled to see ENT in May 2024. She has not seen her previous ENT, who was giving her allergy shots in a few years. The allergy shots helped the chronic post-nasal drip and voice, but the facial pain. In the past, she has tried: gabapentin - lost effectiveness oxcarbazepine/carbamazepine - allergic Pt does not recall ever trying lamotrigine. [facility] Surgical History History of tonsillectomy Family History Father Cancer Multiple sclerosis Mother Cancer Leukemia Sister Multiple sclerosis Social History Housing: House Unable to assess alcohol history related to: Unknown Alcohol intake: never Patient Tobacco Use Status: Never used Tobacco e-Cigarette/Vaping Use: Never Used Second Hand Smoke Exposure: No service: No Current occupational status: retired Cognitive needs: No Hearing needs: No Vision needs: Yes (glasses) Physical Exam Vital Signs: Last Vital Signs Pulse 87 10/19/24 14:13 BP 122/62 10/19/24 14:13 Pulse Ox 94 10/19/24 14:13 Oxygen Delivery Method Room Air 10/19/24 14:13 BMI result Body Mass Index 26.1 Const General: cooperative and no acute distress Orientation/consciousness: patient oriented x3 Resp Effort & Inspection: normal respiratory effort and able to speak in complete sentences Auscultation: clear to auscultation bilaterally Cardio Rate: regular rate Rhythm: regular rhythm Neuro Other: Mild left lower facial asymmetry No palpable tenderness over bilateral trochlear notch as or supraorbital notches. General: patient oriented x3 Cognition (Neuro): normal cognition Psych Appearance: grossly normal Mental Status: mental status grossly normal Speech and movement: Normal speech and movement present Affect: normal affect Attitude: cooperative Assessment & Plan Assessment & Plan (1) Trigeminal neuralgia: Code(s): G50.0 - Trigeminal neuralgia Category: Medical (2) Nausea: Code(s): R11.0 - Nausea Category: Medical (3) TMJ arthritis: Comment: L > R Code(s): M26.649 - Arthritis of unspecified temporomandibular joint Category: Medical Qualifiers: Laterality: unspecified laterality Qualified Code(s): M26.649 - Arthritis of unspecified temporomandibular joint (4) Chronic sinusitis: Code(s): J32.9 - Chronic sinusitis, unspecified Category: Medical Qualifiers: Sinusitis location: unspecified location Qualified Code(s): J32.9 - Chronic sinusitis, unspecified (5) Chronic sinusitis: Code(s): J32.9 - Chronic sinusitis, unspecified Category: Medical (6) Food allergy: Code(s): Z91.018 - Allergy to other foods Category: Medical (7) Environmental allergies: Code(s): Z91.09 - Other allergy status, other than to drugs and biological substances Category: Medical Plan For chronic sinus inflammation, which exacerbates patient's left facial pain, follow-up with ENT as scheduled. Encouraged patient to undergo nasal endoscopy for ENT recommendations. Discussed that if given intranasal lidocaine/analgesics, she should monitor left facial pain response to analgesics and if effective at reducing her left facial pain, we can revisit the home intranasal lidocaine treatment (IE switching from gel to aerosolized mist formulation). Also advise patient to discuss with ENT, if she should continue taking her Singulair morning refill be more beneficial to take it at night-noting that she has not noticed mood irritability is or sleep difficulty since starting it. As patient is now tolerating pregabalin better. So we increase pregabalin from 25 mg daily in the morning and 75 mg daily in the evening to 25 mg 3 times a day during the daytime hours and 75 mg in the evening/bedtime hours (max of 150 mg per day). Continue home Sphenopalatine Ganglion Block with Intranasal Lidocaine? 2% viscous solution. Future considerations: Referring patient back to Dr. Magda Borja, neurosurgeon at [facility]. Previous trials for left facial pain: Carbamazepine and oxcarbazepine- cause pruritic hives Indomethacin, low-dose- caused GI upset Home Instructions for Intranasal Lidocaine/Sphenopalatine Ganglion Block * Do not take this by mouth. * This is for intranasal administration only * Draw up 1 ml of 2% viscous lidocaine into a thin 1ml dosing syringe (the syringe should be thin enough to be inserted deep into the nose). * Self administer 1 mL of 2% viscous lidocaine solution into nasal passage on the same side as the head pain.? * Lidocaine? may be administered into bilateral nasal passages if the headache/? facial pain is on both sides of the head. * Dose may be repeated x1 in 15 minutes. Max of 4 mL per nasal passage per day. Technique: * Lie down on your side curled up like a baby sleeping on its side, with your shoulder on the back of a firm pillow, and your head tilted back and rotated so you are looking up ~30 degrees. * Put the syringe into the lower nostril on the same side as your headache/facial pain, as far as it will comfortably go, with the tip pointing towards the outer (lateral) wall of the nostril. * Inject the contents of the syringe, and then sniff the medicine so that you feel it goes to the back of the nostril, but not into the throat. * If you feel burning or numbness into the eye, or if the eye tears, you know you have gotten the medicine where it needs to be. * Stay lying down with your head turned for 2 ? 3 minutes. * If your headache/facial pain is on both sides, roll over and repeat the pro cedure on the other side. Stay lying down for 2-3 minutes on this side. After sitting up: * When you sit up, whatever medicine has not been absorbed into your nose will roll back into your throat. * It will taste bitter and may make your throat numb. * Don?t eat or drink until the numbness has gone away ? otherwise you might swallow food or liquid into your windpipe. For further information, please see the information listed below. For further information, please review the following: Please note that some of the information below comes from [employer], which is an organization specific cluster headache. However, their explanation and video is applicable to migraine, trigeminal neuralgia and facial pain? disorders. * https://[employer].org/resource/huzz-fhenulnagsgc-ifb-bvgpshpoqo-qjcdvsimq-lpdrnejckcfalb -ganglion-block/ * https://www.[employer].com/watch?v=h2A2d9j1W0F * chrome-extension://efaidnbmnnnibpcajpcglclefindmkaj/ htt ps://www.[facility].org/assets/[place]/headache-center/document s/nasal-lidocaine.pdf For moderate changes of small vessel ischemia: Seen on previous MRI own BP remains normotensive. Last HgA1C 6%. Continue to optimize CV and metabolic control, and to engage in regular physical, social, and cognitively stimulating activities. Follow-up in 6 months or sooner as needed. Medications: Changed From pregabalin 25 mg PO TID 30 days 90 caps 1RF To pregabalin Spread out evenly during daytime hours, and continue 75mg qhs dose 25 mg PO TID 270 caps 1RF 90 days From pregabalin (Lyrica) 75 mg PO BID 90 days 180 caps 3RF To pregabalin (Lyrica) 75 mg PO BEDTIME 90 caps 1RF 90 days Coding Level of Care Code Est Pt Level 4 (04799) Diagnoses Trigeminal neuralgia G50.0 Nausea R11.0 Arthritis of temporomandibular joint, unspecified laterality M26.649 Laterality: unspecified laterality Chronic sinusitis, unspecified location J32.9 Sinusitis location: unspecified location Food allergy Z91.018 Environmental allergies Z91.09
--- OUTSIDE RECORDS SUMMARY | 2024-10-19 14:35 | XMS_ITS | Data Portability ---
Author Organization [place] - [facility], Allergy Address [address] [address] Care Team Providers Care Ultrasound Sonographer Name Role Phone LEESA NAYAK Primary Care Provider [phone] Assessment No assessment recorded. Plan of Treatment Reminders Order Date Submit Date Provider Last Modified By Organization Details Last Modified Time Details Appointments Establish ed 30 2024 01:30P M SONNY Newton MD Not available Not available Not available Lab None recorded. Referral None recorded. Procedures None recorded. Surgeries None recorded. Imaging CT, sinuses, w/o contrast 2024 025 [facility] [place], [address] [facility], [facility] [address], [place], [address], 05/13/2024 08:37:57 Medication Orders prednison e 10 mg tablet 2024 025 [facility]/Pharmacy #[id number], [address] [place], [address], 10/14/2024 14:47:00 doxycycli ne hyclate 100 mg tablet 2024 025 [facility]/Pharmacy #[id number], [address] [place], [address], 10/14/2024 14:46:57 Patient TargetsNo targets recorded. Patient InstructionsNo instructions recorded. Reason for Referral None Reported. Results Created Date Observation Date Name Description Value Unit Range Abnormal Flag Note LastModifiedBy Organization Detail LastModifiedTime 05/13/19 25 05/12/2024 CT, sinus es, w/o contr ast No observ ation record ed. [email or web address] [facility] [place] [address], [place], [address], 05/14/2024 10:06:33 05/13/19 25 12/13/2023 MRI, brain , w/wo contr ast No observ ation record ed. [email or web address] Not Available 2024 16:27:14 07/21/19 25 05/12/2024 CT, sinus es, w/o contr ast No observ ation record ed. [email or web address] [facility] [place] [address], [place], [address], 07/20/2024 11:25:10 Result Notes None recorded. Problems Name Problem SNOMED Code Status Onset Date Resolution Date Notes Provider Name and Address Organization Details Recorded Time Nasal congestion 66501110 Active 2016 Nasal congesti on; Note: Date Diagnose d: 7 11:36 AM (R09.81) Not Available [facility] 4 03:09:48 Gastroesoph ageal reflux disease without esophagitis 556014704 Active 2016 Gastro-e sophagea l reflux disease without esophagi tis; Note: Date Diagnose d: 7 11:36 AM (K21.9) Not Available [facility] 4 03:09:49 Dysphonia 06078596 Active 2016 Hoarsene ss; Note: Date Diagnose d: 7 11:36 AM (R49.0) Not Available [facility] 4 03:09:49 Chronic pansinusiti s 66875027 Active 2024 SONNY CANDELARIO MD [address] [facility],[place] [address], [place], [address] , [place] - [facility] 5 13:16:57 Atypical facial pain 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 Active 2024 SONNY CANDELARIO MD [address] [place] [address],[facility] [address], [place], [address] , [place] - [facility] 5 13:17:00 Chronic sinusitis 03748277 Active 2024 SONNY CANDELARIO MD [address] [facility],[place] [address], [place], [address] , [facility] 13:25:37 Allergic rhinitis 68593084 Active 2024 SONNY CANDELARIO MD [address] [facility],[place] [address], [place], [address] , [facility] 13:40:03 Problem Notes None recorded. Procedures Surgical History Date Name Laterality Status Provider Name and Address Organization Details Recorded Time 05/11/2024 NasalEndos copy_DP completed SONNY CANDELARIO MD [address] [facility],[place] [address], [place], [address], [facility] 05/11/2024 13:24:39 Imaging Results None recorded. [...] Not Available Not Available Not Avai lable Lidocaine Viscous 2 % mucosal solution PLEASE SEE ATTACHED FOR DETAILED DIRECTIO NS active Not Available Not Available No t Available ofloxacin 0.3 % eye drops INSTILL [...] TAKE 1 TABLET BY MOUTH EVERY DAY active Not Available Not Available No t Available azelastin e 137 mcg (0.1 %) nasal spray 2 SPRAY INTRANAS ALLY 2 TIMES A DAY FOR 30 DAYS ADMINIST ER INTO EACH NOSTRIL 05/11 completed Not Available Not Available Not Available albuterol sulfate HFA 90 mcg/actua tion aerosol inhaler TAKE 2 PUFFS INHALED EVERY 4 TO 6 HOURS NEEDED FOR BRONCHOS PASM FOR 30 DAYS active Not Available Not Available No t Available ondansetr on 4 mg disintegr ating tablet DISSOLVE 1 TABLET ORALLY EVERY 8 HOURS NEEDED FOR NAUSEA AND VOMITING 05/11 completed Not Available Not Available Not Available fluticaso ne propionat e 50 mcg/actua tion nasal spray,renetta pension USE 1 SPRAY INTRANAS ALLY DAILY FOR 30 DAYS ADMINIST ER INTO EACH NOSTRIL active Not Available Not Available No t [...] 1 tablet every day by oral route. 10/14 completed Not Available Not Available Not Available [facility] 60 mg tablet 05/11 completed Medicati on ID: [id number] B rand Name: [facility] Send Method: [...] Updated DateTime 05/11/2024 167.64 cm 26.5 kg/m2 74177.15 g Mireya Twyla [place] - [facility] 05/11/2024 13:08:09 Date Recorded Body height Body mass index (BMI) Body weight Provider Name and Address Organization Details Last Updated DateTime 07/13/2024 167.64 cm 26.5 kg/m2 86999.15 g Lashell Hannah [place] [facility] 07/13/2024 13:20:03 Date Recorded Body height Body mass index (BMI) Body weight Provider Name and Address Organization Details Last Updated DateTime 10/14/2024 167.64 cm 26.5 kg/m2 20085.15 g Lashell Hannah [place] [facility] 10/14/2024 14:20:13 Social History None recorded. Functional Status None recorded. Mental Status None recorded. Family History Nothing Reported. Medical History Condition Response Allergies/Hayfever Y Heart Problems N Anxiety Y Tonsil Infections N Emphysema N Migraines N Thyroid Problems N Glaucoma Y Depression N COPD N Developmental Delay N Nasal or Sinus Problems Y Anemia Y Immune System Disorder N Anesthesia Complications Y Heart Attack ([place]) N Other Skin Condition N Diabetes N Rhinitis N Bleeding Disorder N Food Allergy Y Arthritis N Hearing Loss N Hyperlipidemia N Cancer N Stroke N Dementia N Nasal polyps N Asthma N Sleep Disorder N GERD/Reflux Y High Cholesterol N Liver Disease N Headaches Y Fibromyalgia N Hypertension N Speech Delay N Kidney Disease N Gynecological HistoryNo gynecological history recorded. Obstetrics History GPAL:G 0 P 0 0 0 0 Past Encounters Encounter ID Performer Location Encounter Start Date Encounter Closed Date Diagnosis/Indication Diagnosis SNOMED-CT Code Diagnosis ICD10 Code Diagnosis Note [id number] SONNY CANDELARIO MD [facility] on [address] [place] [address] 05/11/2024 12:50:22 05/11/2024 13:25:30 Chronic pansinusitis 07573936 J32.4 Nasal endo was negative for purulence and polyps. I recommend a CT sinus to evaluate for chronic sinusitis as the cause of her facial pain with f/u thereafter . If negative it is likely caused by her trigeminal neuralgia. I will plan maximal medial therapy if sinusitis on CT. I reviewed her MRI which showed mucosal thickening . Atypical facial pain 713 [address]1214 G50.1 see above [id number] SONNY CANDELARIO MD [facility] on [address] [place] [address], [place] [address] 07/13/2024 13:17:22 07/13/2024 13:42:58 Chronic pansinusitis 80574178 J32.4 clinically improved. Atypical facial pain 713 [address]4633 G50.1 improved Allergic rhinitis 094204 04 J30.9 we will obtain her allergy testing. Continue zyzol. I discussed immunother apy. She will consider. We will make another visit to review her allergy testing. [id number] SONNY CANDELARIO MD [facility] on [address] [place] [address], [place] [address] 10/14/2024 13:53:22 10/14/2024 16:31:37 Chronic pansinusitis 05109158 J32.4 We deferred nasal endoscopy today due to her nasal pain. Given she has been symptomati c for 2 weeks and improved in the past with maximal medical therapy we will begin another round of prednisone and doxycyclin e. I discussed the risk of avascular hip necrosis with prednisone . She will keep her follow-up next month to assess her progress. If she does not improve I would recommend updated CAT scan of the sinuses and considerat ion of sinus surgery. Atypical facial pain 713 19150 G50.1 See above Allergic rhinitis 326701 04 J30.9 I reviewed her allergy records and recommend she continue montelukas t and Flonase. Health Concerns Section Related Observation LastModified by Organization Detai ls LastModified Time None Recorded Concern Status LastModified by Organization Details LastModified Time None Recorded Advance Directives Directive None Recorded Payers Insurance Date Sequence Insurance Name Policy Number Policy Lopez Covered Member ID Lopez Member ID Guarantor Name 10/14/2024 1 [employer] (MEDICARE REPLACEMENT/A DVANTAGE - PPO) [id number] Shiva Deisy Odell [id number] Shaunaarlene Cass Notes Date Note Type Note Provider Name [...] No hx of migraine. SONNY CANDELARIO MD [address] [place] [address], [address], [facility] - [facility] 05/11/2024 13:28:42 07/13/2024 text/html She presents [...] headaches have resolved. She has seen an cyber forensic specialist JT. She was offered SCIT but didn't want to pursue it. She is taking zyzol. She has tried flonase including sensimist and azelastine. SONNY CANDELARIO MD [address] [place] [address], [address], [facility] 07/13/2024 13:41:47 10/14/2024 text/html She has a histor y of recurrent sinusitis. She was doing better at the last visit after maximal medical therapy. Today she reports for the last 2 weeks. she has had frontal and left nasal pain. She has a history of facial pain and trigeminal neuralgia. Had an MRI 12/2023 which showed pansinus mucosal thickening without airway fluid levels. We obtained a CT sinus 05/12/2024 which showed mild pansinusitis. We obtained her allergy testing which I reviewed which showed allergies to most categories of allergens tested (I did not see the skin testing report only a patient summary of testing). She is taking montelukast and flonase. SONNY CANDELARIO MD [address] [place] [address], [place], [address], [facility] - [facility] 10/14/2024 14:46:58 OBGyn Episode No OBEpisode recorded.
--- OUTSIDE RECORDS SUMMARY | 2024-10-19 14:35 | XMS_ITS | Patient Health Record ---
Author Organization [facility] Address [address] [place] [address] Care Team Providers Care Loader Machine Name Role Phone Lesser (RETIRED) Liam DANIEL Primary Care Provide r Unavailable Tomasz Rajput [phone] Reason For Referral No Information Medications Medication SIG (Take, Route, Fr equency, Duration) Notes Start Date End Date Status Multi Complete - Orally Act tierra NexIUM 40 MG 1 capsule Orally Once a day Just prn Active Social History Tobacco Use: Social History Observation Description Date Details (start date - stop date) Never Smoker NA - NA Tobacco Use/Smoking Question Answer Notes Patient is a nonsmoker Alcohol Screen Question Answer Notes Did you have a drink containing alcohol in the p ast year? No Points 0 Interpretation Negative Section Notes: Nonsmoker; no sig alcohol Problems Problem Type SNOMED Code ICD Code Onset Dates Problem Status W/U Status Risk Notes Problem 782511787 Encounter for screening for malignant neoplasm of colon (Z12.11) Active confirmed Problem 033782710 Gastroesophageal reflux disease without esophagitis (K21.9) Active confirmed Problem 984793550 Preprocedural examination (Z01.818) Active confirmed Plan Of Treatment Future Test Test Name Order Date COLONOSCOPY 08/23/2016 Insurance Providers Payer Name Payer Address Payer Phone Subscriber Number Group Number Insured Name Patient Relationship to Insured Coverage Start Date Coverage End Date [facility] [address] TRINA OTOOLE [id number] JAI KOLB Self - patient is the insured Medical (General) History Medical History History ICD Code GERD---EGD 12-08-2010--small H H, minimal reflux--no Garcia's--using only occasional Nexium Screening colonoscopy 11-18-2006--negativ e except for internal hemorrhoids Denies MD,DM,CVA,Lung disease,renal dise ase Surgical History Surgery Date(Month/Year) Tonsillectomy
--- OUTSIDE RECORDS SUMMARY | 2024-10-19 14:35 | XMS_ITS | Clinical Summary ---
Author Organization [facility] Address [address] [id number] Care Team Providers Care Fruit Picker Name Role Phone Ray Mak Primary Care Provider [phone] Social History Tobacco Use Types Packs/Day Years [...] - 2023-2 5 season) 2023 Influenza (#1) 2024 RSV (1 - 1-dose 75+ series) 12/07/2030 [...] Discontinued Insurance [employer] Care Teams Fruit Picker Relationship Specialty Start Date End Date Ray Mak PA [address] [place] [address] PCP - General Physician Slitting And Shipping Supervisor 08/02/21
== END 2024-10-19 15:13 | disposition home or self-care (01) ==
LOC: HO.HSMS 13:48
PROVIDERS: PCP Physician Assistant; Visit Provider Nurse Practitioner Family
DX: G50.0 Trigeminal neuralgia (principal); R11.0 Nausea; M26.649 Arthritis of unspecified temporomandibular joint; J32.9 Chronic sinusitis, unspecified; Z91.018 Allergy to other foods; Z91.09 Other allergy status, other than to drugs and biological substances
CPT/HCPCS: 99214

== ENCOUNTER → 2024-10-19 13:47 | Outpatient (BNVA) | payer MEDICARE, SELFPAY | PROVIDERS: PCP Physician Assistant; Visit Provider Nurse Practitioner Family | DX: G50.0 Trigeminal neuralgia (principal); M25.549 Pain in joints of unspecified hand; J32.9 Chronic sinusitis, unspecified; R11.0 Nausea; Z91.018 Allergy to other foods; Z91.09 Other allergy status, other than to drugs and biological substances | CPT/HCPCS: 99212 ==

== ENCOUNTER 2025-03-31 07:53 | Outpatient (REF) | payer MEDICARE, SELFPAY ==
--- OUTSIDE RECORDS SUMMARY | 2025-03-31 07:56 | XMS_ITS | Clinical Summary ---
Author Organization [facility] Address [address] [id number] Care Team Providers Care Manager Quality Improvement Name Role Phone Ray Mak Primary Care Provider [phone] Social History Tobacco Use Types Packs/Day Years [...] Bone Density 12/07/2020 COVID-19 Vaccine ( - 2024-2 6 season) 2024 Influenza (#1) 2024 RSV (1 - 1-dose 75+ series) 12/07/2030 HPV Vaccine (No Doses Required) Completed Hep A Aged Out No longer eligi [...] Discontinued Insurance [employer] Care Teams Manager Quality Improvement Relationship Specialty Start Date End Date Ray Mak PA [address] [place] [address] PCP - General Physician Commercial Project Manager 08/02/21
--- OUTSIDE RECORDS SUMMARY | 2025-03-31 07:56 | XMS_ITS | Data Portability ---
Author Organization ID - [facility], Allergy Address [address] [address] Care Team Providers Care [employer] Librarian Name Role Phone LEESA NAYAK Primary Care Provider Assessment No assessment recorded. Plan of Treatment Reminders Order Date Submit Date Provider Last Modified By Organization Details Last Modified Time Details Appointments Establish ed 30 2025 02:00P M SONNY Newton MD Not available Not available Not available Lab None recorded. Referral None recorded. Procedures None recorded. Surgeries None recorded. Imaging CT, sinuses, w/o contrast 2024 025 [facility] [place], [address] [facility], [place], [address], 05/13/2024 08:37:57 Medication Orders prednison e 10 mg tablet 2024 025 [facility]/Pharmacy #[id number], [address] [place], [address], 10/14/2024 14:47:00 doxycycli ne hyclate 100 mg tablet 2024 025 [facility]/Pharmacy #[id number], [address] [place], [address], 10/14/2024 14:46:57 Patient TargetsNo targets recorded. Patient InstructionsNo instructions recorded. Reason for Referral None Reported. Results Created Date Observation Date Name Description Value Unit Range Abnormal Flag Note LastModifiedBy Organization Detail LastModifiedTime 05/13/19 25 05/12/2024 CT, sinus es, w/o contr ast No observ ation record ed. [email or web address] [facility] [place] [address], [place], [id number], 05/14/2024 10:06:33 05/13/19 25 12/13/2023 MRI, brain , w/wo contr ast No observ ation record ed. [email or web address] Not Available 2024 16:27:14 07/21/19 25 05/12/2024 CT, sinus es, w/o contr ast No observ ation record ed. [email or web address] [facility] [place] [address], [place], [id number], 07/20/2024 11:25:10 Result Notes None recorded. Problems Name Problem SNOMED Code Status Onset Date Resolution Date Notes Provider Name and Address Organization Details Recorded Time Nasal congestion 81683034 Active 2016 Nasal congesti on; Note: Date Diagnose d: 7 11:36 AM (R09.81) Not Available [facility] 4 03:09:48 Gastroesoph ageal reflux disease without esophagitis 508144398 Active 2016 Gastro-e sophagea l reflux disease without esophagi tis; Note: Date Diagnose d: 7 11:36 AM (K21.9) Not Available [facility] 4 03:09:49 Dysphonia 86613977 Active 2016 Hoarsene ss; Note: Date Diagnose d: 7 11:36 AM (R49.0) Not Available [facility] 4 03:09:49 Chronic pansinusiti s 82072890 Active 2024 SONNY CANDELARIO MD [address] [facility] [address], [place], [address] , [place] - [facility] 5 13:16:57 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 SONNY CANDELARIO MD [address] [place] [address],[facility] [address], [place], [address] , [place] - [facility] 5 13:17:00 Chronic sinusitis 88243204 Active 2024 SONNY CANDELARIO MD [address] [facility],[place] [address], [place], [address] , [facility] 13:25:37 Allergic rhinitis 05279754 Active 2024 SONNY CANDELARIO MD [address] [facility],[place] [address], [place], [address] , [facility] 13:40:03 Problem Notes None recorded. Procedures Surgical History Date Name Laterality Status Provider Name and Address Organization Details Recorded Time 11/18/2024 NasalEndos copy_DP completed SONNY CANDELARIO MD [address] [facility],[place] [address], [place], [address], [facility] 11/18/2024 14:01:07 05/11/2024 NasalEndos copy_DP completed SONNY CANDELARIO MD [address] [facility],[place] [address], [place], [address], [facility] 05/11/2024 13:24:39 Imaging Results None recorded. Procedure Notes None recorded. Medical Equipment None Reported. Allergies No known drug allergies Medications Name Sig Start Date Stop Date Status Note LastModified by Organization Details LastModified Time latanopro st 0.005 % eye drops INSTILL 1 DROP INTO BOTH EYES EVERY NIGHT AT BEDTIME active Not Available Not Available No t Available prednison e 10 mg tablet PLEASE SEE ATTACHED FOR DETAILED DIRECTIO NS 11/15 completed Not Available Not Available Not Available Lidocaine Viscous 2 % mucosal solution PLEASE [...] MOUTH TWICE A DAY FOR 10 DAYS 11/15 completed Not Available Not Available Not Available loratadin e 10 mg tablet TAKE 1 TABLET ORALLY DAILY 05/11 completed Not Available Not Available Not Available amoxicill in 875 mg-potass ium clavulana te 125 mg tablet TAKE 1 TABLET BY MOUTH TWICE A DAY 05/11 completed Not Available Not Available Not Available pregabali n 25 mg capsule PLEASE SEE ATTACHED FOR DETAILED DIRECTIO NS active Not Available Not Available No t Available pregabali n 75 mg capsule TAKE 1 CAPSULE BY MOUTH EVERYDAY AT BEDTIME active Not Available Not Available No t Available Xyzal 5 mg tablet Take 1 tablet every day by oral route. 10/14 completed Not Available Not Available Not Available [facility] 60 mg tablet 05/11 completed Medicati on ID: [id number] rand Name: [facility] Send Method: [...] Updated DateTime 05/11/2024 167.64 cm 26.5 kg/m2 63578.15 g Mireya Wakefield [place] - [facility] 05/11/2024 13:08:09 Date Recorded Body height Body mass index (BMI) Body weight Provider Name and Address Organization Details Last Updated DateTime 07/13/2024 167.64 cm 26.5 kg/m2 01268.15 g Lashell Hannah [place] - [facility] 07/13/2024 13:20:03 Date Recorded Body height Body mass index (BMI) Body weight Provider Name and Address Organization Details Last Updated DateTime 10/14/2024 167.64 cm 26.5 kg/m2 84047.15 g Lashell Hannah [place] - [facility] 10/14/2024 14:20:13 Date Recorded Body height Body mass index (BMI) Body weight Provider Name and Address Organization Details Last Updated DateTime 11/18/2024 167.64 cm 26.5 kg/m2 79836.15 g Lashell Hannah [place] - [facility] 11/18/2024 13:47:14 Social History Question Answer Notes LastModified by Organizat ion Details LastModified Time Tobacco Smoking Status Never Smoker Lashell bill [place] - [facility] 11/18/2024 13:46:22 What Type Of Supply Clerk Do You Use? None Information not available 11/18/2024 Do You Have Any Pets? No Information not available 11/18/2024 Are You Passively Exposed To Smoke? No Information not available 11/18/2024 Are There Any Smokers In Your House? No Information not available 11/18/2024 Sex: Unknown Functional Status Question Answer Note LastModified by Organization Details LastModified Time Do you use any illicit or recreational drugs? No Information not available 11/18/2024 Do you or have you ever used any other forms of tobacco or nicotine? No Information not available 11/18/2024 What is your level of alcohol consumption? None Information not available 11/18/2024 What type of noise exposure are you exposed to? noExposureToExcessiveNoise Infor mation not available 11/18/2024 Mental Status None recorded. Family History Nothing Reported. Medical History Condition Response Allergies/Hayfever Y Heart Problems N Anxiety Y Tonsil Infections N Emphysema N Migraines N Thyroid Problems N Glaucoma Y Developmental Delay N Depression N COPD N Nasal or Sinus Problems Y Anemia Y Immune System Disorder N Anesthesia Complications Y Heart Attack (AR) N Other Skin Condition N Diabetes N Rhinitis N Bleeding Disorder N Food Allergy Y Hearing Loss N Arthritis N Hyperlipidemia N Cancer N Stroke N Dementia N Nasal polyps N Asthma N Sleep Disorder N High Cholesterol N GERD/Reflux Y Liver Disease N Headaches Y Fibromyalgia N Hypertension N Speech Delay N Kidney Disease N Gynecological HistoryNo gynecological history recorded. Obstetrics History GPAL:G 0 P 0 0 0 0 Past Encounters Encounter ID Performer Location Encounter Start Date Encounter Closed Date Diagnosis/Indication Diagnosis SNOMED-CT Code Diagnosis ICD10 Code Diagnosis IMO Codes Diagnosis Note [id number] SONNY CANDELARIO MD [facility] on [address] [place] [id number] 05/11/2024 12:50:22 05/11/2024 13:25:30 Chronic pansinusitis 42566019 J32.4 Nasal endo was negative for purulence and polyps. I recommend a CT sinus to evaluate for chronic sinusitis as the cause of her facial pain with f/u thereafter . If negative it is likely caused by her trigeminal neuralgia. I will plan maximal medial therapy if sinusitis on CT. I reviewed her MRI which showed mucosal thickening . Atypical facial pain 713 09349 G50.1 see above [id number] SONNY CANDELARIO MD [facility] on [address] [place] [address], [place] [id number] 07/13/2024 13:17:22 07/13/2024 13:42:58 Chronic pansinusitis 54180393 J32.4 clinically improved. Atypical facial pain 713 65238 G50.1 improved Allergic rhinitis 731161 04 J30.9 we will obtain her allergy testing. Continue zyzol. I discussed immunother apy. She will consider. We will make another visit to review her allergy testing. [id number] SONNY CANDELARIO MD [facility] on [address] [place] [address] [place] [id number] 10/14/2024 13:53:22 10/14/2024 16:31:37 Chronic pansinusitis 00598234 J32.4 We deferred nasal endoscopy today due [...] of sinus surgery. Atypical facial pain 713 74992 G50.1 See above Allergic rhinitis 647042 04 J30.9 I reviewed her allergy records and recommend she continue montelukas t and Flonase. [id number] SONNY CANDELARIO MD [facility] on [address] [place] [address] [place] [id number] 11/18/2024 13:19:52 11/18/2024 14:07:58 Chronic pansinusitis 10832209 J32.4 She has both chronic sinusitis as well as trigeminal neuralgia. Nasal endoscopy was negative for purulence and polyps. I reviewed her CT scan from May which showed mild sinus disease. Some of her symptoms have improved since therapy around that time and so I think her current symptoms are more due to trigeminal neuralgia. Atypical facial pain 713 89280 G50.1 I recommend she keep follow-up with her neurologis t regarding her trigeminal neuralgia which I think is causing the majority of her current facial and nasal pain. I will plan to recheck her in 6 months. Allergic rhinitis 551679 04 J30.9 continue montelukas t and Flonase. Health Concerns Section Related Observation LastModified by Organization Detai ls LastModified Time None Recorded Concern Status LastModified by Organization Details LastModified Time None Recorded Advance Directives Directive None Recorded Payers Insurance Date Sequence Insurance Name Policy Number Policy Lopez Covered Member ID Lopez Member ID Guarantor Name 11/15/2024 1 [facility] (MEDICARE REPLACEMENT/A DVANTAGE - PPO) [id number] Shiva Odell [id number] Shiva Odell Notes Date Note Type Note Provider Name and Address Organization Details Recorded Time 05/11/2024 text/html ROS as noted in the HPI She presents with frontal and maxillary facial pressure. She has a history of facial pain and trigeminal neuralgia. Had an MRI 12/2023 which showed pansinus mucosal thickening without airway fluid levels. She was treated once in the last year for sinusitis with abx and a medrol pack. Denies nasal congestion. She has the headache for the last month everyday. No hx of migraine. SONNY CANDELARIO MD [address] [place] [address], [phone], [facility] - [facility] 05/11/2024 13:28:42 07/13/2024 text/html ROS as noted in the HPI She presents with frontal and maxillary facial pressure. She has a history of facial pain and trigeminal neuralgia. Had an MRI 12/2023 which showed pansinus mucosal thickening without airway fluid levels. We obtained a CT sinus 05/12/2024 which showed mild pansinusitis. I sent prednisone and doxy since the last visit. Her headaches have resolved. She has seen an account executive key accounts JT. She was offered SCIT but didn't want to pursue it. She is taking zyzol. She has tried flonase including sensimist and azelastine. SONNY CANDELARIO MD [address] [place] [address],[address], [address], [facility] - [facility] 07/13/2024 13:41:47 10/14/2024 text/html ROS as noted in the HPI She has a history of recurrent sinusitis. She was doing better [...] taking montelukast and flonase. SONNY CANDELARIO MD [address] [place] [address], [phone], [facility] - [facility] 10/14/2024 14:46:58 11/18/2024 text/html ROS as noted in the HPI She has a history of recurrent sinusitis. She has shown improvement after maximal medical therapy in the past. At the last visit she had frontal and left nasal pain. We did another round of maximal medical therapy which didn't seem to help as much this time. She has a history of facial pain and trigeminal neuralgia. She wonders if her residual pain is due to her trigeminal neuralgia. We obtained her allergy testing which I reviewed which showed allergies to most categories of allergens tested (I did not see the skin testing report only a patient summary of testing). She is taking montelukast and flonase. SONNY CANDELARIO MD [address] [place] [address], [phone], [facility] - [facility] 11/18/2024 14:09:44 OBGyn Episode No OBEpisode recorded.
--- OUTSIDE RECORDS SUMMARY | 2025-03-31 07:56 | XMS_ITS | Patient Health Record ---
Author Organization [facility] Address [address] [place] [address] Care Team Providers Care Speech Language Pathologist Travel Name Role Phone Prabha (RETIRED) Liam DANIEL Primary Care Provide r Unavailable Tomasz Rajput Unavailable [phone] Reason For Referral No Information Medications Medication SIG (Take, Route, Frequency, Duration) Notes Start Date End Date Status Multi Complete - Capsule Orally Active NexIUM 40 MG Capsule Delayed Release 1 capsule Orally Once a day Just prn Active Social History Tobacco Use: Social History Observation Description Date Details (start date - stop date) Never Smoker NA - NA Social History Drugs/Alcohol: Social Info Question Answer Notes Alcohol Screen Did you have a drink containing alcohol in the past year? 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 Section Notes: Nonsmoker; no sig alcohol Problems Problem Type SNOMED Code ICD Code Onset Dates Problem Status W/U Status Risk Notes Problem Screening for malignant neoplasm of colon (197390613) Encounter for screening for malignant neoplasm of colon (Z12.11) Active confirmed Problem Gastroesophageal reflux disease without esophagitis (609424718) Gastroesophageal reflux disease without esophagitis (K21.9) Active confirmed Problem Preprocedural examination (478301337929404) Preprocedural examination (Z01.818) Active confirmed Plan Of Treatment Future Test Test Name Order Date COLONOSCOPY 08/23/2016 Insurance Providers Payer Name Payer Address Payer Phone Subscriber Number Group Number Insured Name Patient Relationship to Insured Coverage Start Date Coverage End Date [facility] [address] [place], [place] [id number] [phone] [id number] JAI KOLB Self - patient is the insured Medical (General) History Medical History History ICD Code GERD---EGD 12-08-2010--small H H, minimal reflux--no Garcia's--using only occasional Nexium Screening colonoscopy 11-18-2006--negativ e except for internal hemorrhoids Denies [place],DM,CVA,Lung disease,renal dise ase Surgical History Surgery Date(Month/Year) Tonsillectomy
[2025-03-31 08:16] LABS: Hematocrit 42.4 % (37.0-47.0); Hemoglobin 12.9 g/dl (12.0-16.0); Mean Corpuscular HGB Conc 30.4 g/dl (31.0-35.0); Mean Corpuscular Hemoglobin 27.0 pg (27.0-33.0); Mean Corpuscular Volume 88.9 fL (80.0-98.0); NRBC Abs Auto 0.000 X10*3/uL (0.0-0.012); NRBC Pct Auto 0.0 /100WBC (0.0-0.2); Platelet Count 283 X10*3/uL (160-400); Red Blood Count 4.77 X10*6/uL (4.20-5.50); White Blood Count 7.6 X10*3/uL (4.8-10.8)
[2025-03-31 08:41] LABS: Alanine Aminotransferase 18 U/L (0-31); Albumin Level 4.3 g/dL (3.5-5.0); Anion Gap 13 (12-20); Aspartate Amino Transferase 31 U/L (5-31); Blood Urea Nitrogen 20 mg/dL (9-16); Calcium 9.5 mg/dL (8.4-10.2); Carbon Dioxide 28 mmol/L (22-29); Chloride 107 mmol/L (96-108); Cholesterol 192 mg/dL (<200); Estimated Glomerular Filt Rate 58; HDL Cholesterol 47 mg/dL (>40); Potassium 4.8 mmol/L (3.3-5.1); Sodium 143 mmol/L (135-145); Total Protein 7.7 g/dL (6.5-8.0); Triglycerides 156 mg/dL (<150)
[2025-03-31 08:42] LABS: Alkaline Phosphatase 102 U/L (39-117)
== END 2025-03-31 07:54 | disposition home or self-care (01) ==
LOC: HO.LAB 07:53
PROVIDERS: PCP Physician Assistant; Visit Provider Physician Assistant
DX: R73.01 Impaired fasting glucose (principal); E78.9 Disorder of lipoprotein metabolism, unspecified
CPT/HCPCS: 36415; 80053; 80061; 83036; 85027